=== PATIENT | female | born 1970 | race Caucasian/White ===

== ENCOUNTER 2017-03-11 19:17 | Emergency (ER) | payer OTHER, SELFPAY ==
[2017-03-11 19:17] VITALS: BP 149/98; PULSE 85; O2SAT 98
[2017-03-11 19:20] VITALS: BP 149/98; PULSE 87; RESP 18; TEMP 36.9; O2SAT 100; BMI 32.0
[2017-03-11 19:51] LABS: Basophils % 0.2 % (0.1-2.0); Eosinophils # 0.1 K/mm3 (0.0-0.4); Eosinophils % 1.3 % (0.1-12.0); Hematocrit 36.9 % (37.0-47.0); Hemoglobin 11.5 g/dL (12.2-16.2); Lymphocytes # 2.8 K/mm3 (0.7-4.5); Lymphocytes % 32.2 K/mm3 (10-50); Mean Corpuscular HGB Conc 31.2 g/dL (31.8-35.4); Mean Corpuscular Hemoglobin 28.5 pg (27.0-31.2); Mean Corpuscular Volume 91.4 fl (81-99); Mean Platelet Volume 6.8 fl (7.4-10.4); Monocytes # 0.4 K/mm3 (0.1-1.0); Monocytes % 4.9 % (1.7-9.3); Neutrophils # 5.2 K/mm3 (1.8-7.8); Neutrophils % 61.3 % (37.0-80.0); Platelet Count 236 K/mm3 (142-424); Red Blood Count 4.04 M/mm3 (4.20-5.40); Red Cell Distribution Width 16.3 % (11.5-17.5); White Blood Count 8.5 K/mm3 (4.8-10.8)
--- NOTE | 2017-03-11 20:18 | HMH.EDUROGF ---
ED Disposition Clinical Impression: Dysmenorrhea Disposition: Home, Self-Care Condition on Discharge: Good Instructions: DI for Vaginal Bleeding Additional Instructions: fluids and seedr yaa for follow up Referrals: Rony Pimentel MD [Primary Care Provider] - - Critical Care Critical Care Time: No Attestation: On 03/11/17, the high probability of a clinically significant, sudden or life threatening deterioration of the following system(s) required my full and direct attention, intervention and personal management. The time I documented below is in addition to time spent performing reported procedures but includes the following listed in this critical care notation. Medical Decision Making Vital Signs: 03/11/17 19:17 03/11/17 19:20 Temperature 98.5 F Temperature Source Oral Pulse Rate [Right Radial] 85 87 Respiratory Rate 18 Blood Pressure [Right Arm] 149/98 149/98 Blood Pressure Mean [Right Arm] 115 115 Blood Pressure Source [Right Arm] Automatic Cuff Blood Pressure Position [Right Arm] Sitting 02 Sat by Pulse Oximetry 98 100 Oxygen Delivery Method Room Air - Lab Data Lab results reviewed: Yes: I reviewed the patient's lab results. Lab Results 03/11/17 19:35: WBC 8.5, RBC 4.04 L, Hgb 11.5 L, Hct 36.9 L, MCV 91.4, MCH 28.5, MCHC 31.2 L, RDW 16.3, Plt Count 236, MPV 6.8 L, Neut % (Auto) 61.3, Lymph % (Auto) 32.2, [place] % (Auto) 4.9, Eos % (Auto) 1.3, Baso % (Auto) 0.2, Neut # (Auto) 5.2, Lymph # (Auto) 2.8, [place] # (Auto) 0.4, Eos # (Auto) 0.1, Baso # (Auto) 0.0 03/11/17 19:35: Sodium 142, Potassium 3.8, Chloride 107, Carbon Dioxide 27, Anion Gap 11.8, BUN 11, Creatinine 0.71, Estimated Creat Clear 119, Estimated GFR 89, Est GFR ( Amer) 108, Glucose 128 H, Calcium 8.7, Total Bilirubin 0.2, AST 22, ALT 30, Alkaline Phosphatase 101, Total Protein 7.4, Albumin 3.4, Globulin 4.0 H, Albumin/Globulin Ratio 0.9 L Result diagrams: 03/11/17 19:35 03/11/17 19:35 Orders (Tests/Meds): ED MEDICATIONS Generic Name Dose Route Start Last Admin Trade Name Park PRN Reason Stop Dose Admin Sodium Chloride 1,000 mls @ 999 mls/hr 03/11/17 20:45 03/11/17 20:33 Sod Chloride 0.9% 1000ml Bag IV 03/11/17 21:45 999 mls/hr .Q1H1M ABIDA Administration - Physician Consults Physician Consulted: yaa Reason -: Pt condition - [place] Inquiry Pt receiving controlled substance: No Female Urogenital HPI - General Chief complaint: Urogenital-Female Stated complaint: Heavy Bleeding for 2 Weeks Time Seen by Provider: 03/11/17 20:19 Mode of Arrival: Ambulatory Source of Information: Patient, Medical Record Limitations: No Limitations Description of Symptoms (Recalled from ER Triage Doc. by RN): Pt reports heavy mestration x 2 weeks. Reports she spoke with Dr. Hoffmann who told her to come to ed. - History of Present Illness HPI Narrative: felt light headed and crampy pain with abn vag bleeding MD Complaint: vaginal bleeding Onset (ago): week(s) Radiation: suprapubic Severity: moderate Quality: cramping : no - Related Data Home Medications Medication Instructions Recorded Confirmed aspirin 81 mg tablet,delayed 81 mg PO QDAY 03/09/17 03/11/17 release atorvastatin 80 mg tablet 80 mg PO QDAY 03/09/17 03/11/17 ferrous sulfate 325 mg (65 mg 325 mg PO BID tab 03/09/17 03/11/17 iron) tablet isosorbide mononitrate ER 30 mg 30 mg PO QAM 03/09/17 03/11/17 tablet,extended release 24 hr lisinopril 20 mg tablet 20 mg PO QDAY 03/09/17 03/11/17 metformin 500 mg tablet 500 mg PO BID 03/09/17 03/11/17 metoprolol succinate ER 25 mg 25 mg PO QDAY tab 03/09/17 03/11/17 tablet,extended release 24 hr ticagrelor 90 mg tablet 60 mg PO BID 03/09/17 03/11/17 Allergies Allergy/AdvReac Type Severity Reaction Status Date / Time Penicillins [PENICILLINS] Allergy Mild Verified 03/11/17 20:19 [facility] History I have reviewed the patient's past medical history: Yes Medical
--- NOTE | 2017-03-11 20:22 | ED_ITS ---
ED Disposition Clinical Impression: Dysmenorrhea Disposition: Home, Self-Care Condition on Discharge: Good Instructions: DI for Vaginal Bleeding Additional Instructions: fluids and seedr yaa for follow up Referrals: Rony Pimentel MD [Primary Care Provider] - - Critical Care Critical Care Time: No Attestation: On 03/11/17, the high probability of a clinically significant, sudden or life threatening deterioration of the following system(s) required my full and direct attention, intervention and personal management. The time I documented below is in addition to time spent performing reported procedures but includes the following listed in this critical care notation. Medical Decision Making Vital Signs: 03/11/17 19:17 03/11/17 19:20 Temperature 98.5 F Temperature Source Oral Pulse Rate [Right Radial] 85 87 Respiratory Rate 18 Blood Pressure [Right Arm] 149/98 149/98 Blood Pressure Mean [Right Arm] 115 115 Blood Pressure Source [Right Arm] Automatic Cuff Blood Pressure Position [Right Arm] Sitting 02 Sat by Pulse Oximetry 98 100 Oxygen Delivery Method Room Air - Lab Data Lab results reviewed: Yes: I reviewed the patient's lab results. Lab Results 03/11/17 19:35: WBC 8.5, RBC 4.04 L, Hgb 11.5 L, Hct 36.9 L, MCV 91.4, MCH 28.5 , MCHC 31.2 L, RDW 16.3, Plt Count 236, MPV 6.8 L, Neut % (Auto) 61.3, Lymph % ( Auto) 32.2, [place] % (Auto) 4.9, Eos % (Auto) 1.3, Baso % (Auto) 0.2, Neut # (Auto ) 5.2, Lymph # (Auto) 2.8, [place] # (Auto) 0.4, Eos # (Auto) 0.1, Baso # (Auto) 0.0 03/11/17 19:35: Sodium 142, Potassium 3.8, Chloride 107, Carbon Dioxide 27, Anion Gap 11.8, BUN 11, Creatinine 0.71, Estimated Creat Clear 119, Estimated GFR 89, Est GFR ( Amer) 108, Glucose 128 H, Calcium 8.7, Total Bilirubin 0.2, AST 22, ALT 30, Alkaline Phosphatase 101, Total Protein 7.4, Albumin 3.4, Globulin 4.0 H, Albumin/Globulin Ratio 0.9 L Result diagrams: 03/11/17 19:35 03/11/17 19:35 Orders (Tests/Meds): ED MEDICATIONS Generic Name Dose Route Start Last Admin Trade Name Park PRN Reason Stop Dose Admin Sodium Chloride 1,000 mls @ 999 mls/hr 03/11/17 20:45 03/11/17 20:33 Sod Chloride 0.9% 1000ml Bag IV 03/11/17 21:45 999 mls/hr .Q1H1M ABIDA Administration - Physician Consults Physician Consulted: yaa Reason -: Pt condition - [place] Inquiry Pt receiving controlled substance: No Female Urogenital HPI - General Chief complaint: Urogenital-Female Stated complaint: Heavy Bleeding for 2 Weeks Time Seen by Provider: 03/11/17 20:19 Mode of Arrival: Ambulatory Source of Information: Patient, Medical Record Limitations: No Limitations Description of Symptoms (Recalled from ER Triage Doc. by RN): Pt reports heavy mestration x 2 weeks. Reports she spoke with Dr. Hoffmann who told her to come to ed. - History of Present Illness HPI Narrative: felt light headed and crampy pain with abn vag bleeding MD Complaint: vaginal bleeding Onset (ago): week(s) Radiation: suprapubic Severity: moderate Quality: cramping : no - Related Data Home Medications Medication Instructions Recorded Confirmed aspirin 81 mg tablet,delayed 81 mg PO QDAY 03/09/17 03/11/17 release atorvastatin 80 mg tablet 80 mg PO QDAY 03/09/17 03/11/17 ferrous sulfate 325 mg (65 mg 325 mg PO BID tab
[2017-03-11 20:25] LABS: Alanine Aminotransferase 30 U/L (12-78); Albumin Level 3.4 gm/dL (3.4-5.0); Albumin/Globulin Ratio 0.9 (1.1-1.8); Alkaline Phosphatase 101 U/L (46-116); Anion Gap 11.8 mEq/L (5-15); Aspartate Amino Transferase 22 U/L (15-37); Bilirubin,Total 0.2 mg/dL (0.2-1.0); Blood Urea Nitrogen 11 mg/dL (7-18); Calcium 8.7 mg/dL (8.5-10.1); Carbon Dioxide 27 mmol/L (21.0-32.0); Chloride 107 mmol/L (98-107); Creatinine Clearance Estimated 119 mL/min (0-300); Creatinine,Serum 0.71 mg/dL (0.55-1.02); Estimated Glomerular Filt Rate 89 ml/min (>60); GFR (African American) 108 ML/MIN (>60); Glucose 128 mg/dL (74-106); Potassium 3.8 mmoL/L (3.5-5.1); Sodium 142 mmol/L (136-145); Total Protein,Serum 7.4 gm/dL (6.4-8.2)
[2017-03-11 20:40] VITALS: BP 140/87; PULSE 77; RESP 14; O2SAT 98
[2017-03-11 20:44] VITALS: BP 152/89; PULSE 75; RESP 14; O2SAT 98
[2017-03-11 20:48] VITALS: BP 150/92; PULSE 84; RESP 14; O2SAT 100
--- NOTE | 2017-03-11 20:53 | PC.NURSE ---
DR. GARY ON PHONE WITH DR. DANIELS
== END 2017-03-11 21:05 | disposition home or self-care (01) ==
PROVIDERS: Emergency Provider Emergency Medicine; PCP Emergency Medicine
DX: N94.6 Dysmenorrhea, unspecified (principal); R94.31 Abnormal electrocardiogram [ECG] [EKG]; E11.9 Type 2 diabetes mellitus without complications; J45.909 Unspecified asthma, uncomplicated; J44.9 Chronic obstructive pulmonary disease, unspecified; I10 Essential (primary) hypertension; K21.9 Gastro-esophageal reflux disease without esophagitis; E78.5 Hyperlipidemia, unspecified; D64.9 Anemia, unspecified; F17.210 Nicotine dependence, cigarettes, uncomplicated; I25.10 Atherosclerotic heart disease of native coronary artery without angina pectoris; Z95.5 Presence of coronary angioplasty implant and graft
CPT/HCPCS: 80053; 85025; 96365; 99282; 99283

== ENCOUNTER → 2017-03-13 10:25 | Outpatient (CLI) | payer OTHER, SELFPAY ==
--- NOTE | 2017-03-13 10:29 | US_ITS ---
US transvaginal Ordering Physician: Toby Hoffmann MD Patient Age: 46 years: Female HISTORY: ITS.REASON: Heavy Bleeding Pelvic Pain Cramping. Prolonged menses and 16 day last cycle TECHNIQUE: Transvaginal pelvic ultrasound COMPARISON :CT abdomen pelvis July 2013 FINDINGS Patient was noted to be currently actively bleeding. Uterus is enlarged with thickened endometrial stripe measures 1.25 cm..There is fluid pocket within the upper portion endometrium cavity conceivably could reflect a blood collection. This fluid pocket at the superior endometrium, measures 7.5 mm AP x 2.6 cm transverse.. The endometrial cavity far superiorly here measures 1.1 x 1.4 cm maximum AP dimension. Inferior this we see generous area of hyperechoic soft tissue density within the thickened mid endometrial cavity.. Cannot exclude endometrial polyp here at mid body of uterus contributing to this soft tissue density filling endometrial cavity here..... The endometrial cavity measuring up to 10 mm at midportion with this hypoechoic material fills the endometrium Uterus measures: nearly 9.5 cm cmlength X 5.25 x 5.8 cm wide. Ovaries appear within normal limits with minimal fluid at cul-de-sac bilateral Numerous follicles are seen about the margin both ovary Right ovary 2.8 x 1.8 x 2.7 cm. . LEFT ovary 3.1 x 2.1 x 2.8 cm. Largest follicle the left measuring 7.5 IMPRESSION: 1. Uterus relatively enlarged measuring nearly 9.5 cm in length.. 2. Thickened endometrial stripe. : ... Focal Fluid collection noted superiorly at endometrial cavity-possibly reflection of the patient's current, active bleeding. .... Otherwise hyperechoic soft tissue material fills & mildly dilates endometrial cavity. It measures at least 1 cm at this level & up to 1.4 cm AP superiorly at where the fluid collection encountered. ... 3. Ovaries appear normal in size with normal color Doppler flow. Normal Follicles bilaterally most evident left ovary. 4. Mild amount of fluid the cul-de-sac.
== END ==
PROVIDERS: PCP Emergency Medicine; Visit Provider Nurse Practitioner Obstetrics & Gynecology
DX: N92.0 Excessive and frequent menstruation with regular cycle (principal); R10.9 Unspecified abdominal pain
CPT/HCPCS: 76830

== ENCOUNTER → 2017-04-06 06:42 | Outpatient (CLI) | payer OTHER, SELFPAY ==
--- NOTE | 2017-04-06 06:45 | NM_ITS ---
SPECT MYOCARDIAL PERFUSION SCAN, REST AND STRESS: EXERCISE STRESS: [facility] REVIEW QGS EF AND WALL MOTION EVALUATION: QPS - PERFUSION EVALUATION: HISTORY: CAD PROCEDURE: Rest imaging performed after administration of10.13 millicuries Tc MIBI. Dose administered at7:00 a.m., with imaging thereafter. Stress imaging was then performed following6 minutes of exercise stress. The patient achieved a heart [id number] with projected heart rate of150 . Resting BP181/93 with stress 190/90. At maximum exercise stress,31.5 millicuries Tc MIBI administered at8:50 a.m. with [id number] minutes thereafter. EKG revealed 1 to [address] segment depression. EKG portion of this test was abnormal FINDINGS: Perfusion Evaluation: The single slice spect images as well as the [facility] bull's-eye data summary were reviewed. Wall Motion and Ejection Fraction Evaluation: Gated SPECT review and analysis used to evaluate these features. There is a 32 % SPECT images reveal severely decreased activity throughout the anterior wall apex and a portion of the inferoseptal wall. Rest images reveal no significant change gated images calculated ejection fraction of 32% with anterior apical hypokinesis. IMPRESSION: High risk abnormal stress test with previous transmural myocardial infarction involving the anterior apical septal wall and portion of the inferior apical wall without reversible ischemia. Severely reduced ejection fraction with large regional wall motion abnormality
--- NOTE | 2017-04-06 07:27 | HMH.ITSHM ---
METFORMIN BRILINTA METOPROLOL LISINOPRIL IRON PILL HORMONE PILL ATORVASTATIN ISOSORBIDE ASA
== END ==
PROVIDERS: PCP Emergency Medicine; Visit Provider Internal Medicine
DX: E78.4 Other hyperlipidemia (principal); I25.10 Atherosclerotic heart disease of native coronary artery without angina pectoris; E11.9 Type 2 diabetes mellitus without complications; R94.31 Abnormal electrocardiogram [ECG] [EKG]; F17.200 Nicotine dependence, unspecified, uncomplicated; Z95.5 Presence of coronary angioplasty implant and graft; R10.2 Pelvic and perineal pain; N94.6 Dysmenorrhea, unspecified
CPT/HCPCS: 78452; 93017; A9502

== ENCOUNTER 2017-04-20 07:37 | Day surgery (SDC) | payer OTHER, SELFPAY ==
[2017-04-20] VITALS (14 sets, daily range): BP systolic 120–176; BP diastolic 74–97; PULSE 57–73; RESP 12–20; TEMP 36.6; O2SAT 92–100; BMI 29.0
--- NOTE | 2017-04-20 | IR_ITS ---
CARDIAC CATHETERIZATION DATE OF CATHETERIZATION:04/20/2017 9:38 AM PROCEDURES: 1. Left heart catheterization 2. Left ventriculogram 3. Selective coronary angiogram INDICATION FOR TEST: 1. Systolic congestive heart failure ejection fraction 32% 2. High risk abnormal Myoview 3. History of ischemic cardiomyopathy 4. Coronary artery disease Informed consent was obtained prior to the procedure. COMPLICATIONS: None ESTIMATED BLOOD LOSS: Less than 10 ml. TECHNIQUE: One percent lidocaine was used to anesthetize the right groin. The right femoral artery was accessed via the Seldinger technique. A 4-Polish sheath was placed in the right femoral artery. The JL-4 and JR-4 catheter was also used to perform left heart catheterization left ventriculogram and selective coronary angiogram. At the end of the procedure the patient was transferred to the post-op holding area in stable condition for arterial sheath removal. ANGIOGRAPHIC RESULTS: 1. The left main artery normal 2. The left anterior descending artery has stents in the very proximal segment which extend throughout the mid segment. Proximally the stents are widely patent with mild in-stent restenosis. In the distal aspect of the mid LAD stent there is concentric 70-80% stenosis. The first diagonal artery has a filling defect in the ostial segment with persistent NANDO-3 flow down the vessel 3. The circumflex artery is nondominant and gives rise to a large ramus intermedius with ostial 20-30% stenoses while the true circumflex artery which runs in the AV groove has an ostial 80% stenosis 4. The right coronary artery is a large dominant vessel and has an ostial 20% stenosis proximal 20% stenosis mid vessel 30-40% concentric stenosis with distal 10% stenoses. The posterior descending artery has an ostial 60-70% stenosis 5. The RAYMOND ventriculogram reveals severely hypokinetic anterior apical wall with ejection fraction of 30%. The apex is akinetic 6. The left ventricular end-diastolic pressure 15 mmHg IMPRESSION: 1. Coronary artery disease as described above 2. Ischemic cardiomyopathy 3. Large regional wall motion abnormality with no reversible ischemia on stress testing implying anterior wall PLAN: 1. Standard therapy for systolic heart failure 2. Patient will be scheduled for an AICD later this week for her ischemic cardiomyopathy and class II to III congestive heart failure symptoms 3. Aggressive risk factor modification within LDL less than 55 4. Cardiac rehabilitation 5. Avoidance of tobacco products
[2017-04-20 08:21] LABS: Basophils % 0.3 % (0.1-2.0); Eosinophils # 0.1 K/mm3 (0.0-0.4); Eosinophils % 1.7 % (0.1-12.0); Hematocrit 43.1 % (37.0-47.0); Hemoglobin 13.5 g/dL (12.2-16.2); Lymphocytes # 1.5 K/mm3 (0.7-4.5); Lymphocytes % 21.7 K/mm3 (10-50); Mean Corpuscular HGB Conc 31.2 g/dL (31.8-35.4); Mean Corpuscular Hemoglobin 29.2 pg (27.0-31.2); Mean Corpuscular Volume 93.5 fl (81-99); Mean Platelet Volume 7.2 fl (7.4-10.4); Monocytes # 0.4 K/mm3 (0.1-1.0); Monocytes % 5.7 % (1.7-9.3); Neutrophils # 4.9 K/mm3 (1.8-7.8); Neutrophils % 70.6 % (37.0-80.0); Platelet Count 224 K/mm3 (142-424); Red Blood Count 4.61 M/mm3 (4.20-5.40); Red Cell Distribution Width 14.4 % (11.5-17.5); White Blood Count 6.9 K/mm3 (4.8-10.8)
[2017-04-20 08:28] LABS: Anion Gap 12.2 mEq/L (5-15); Blood Urea Nitrogen 10 mg/dL (7-18); Carbon Dioxide 24 mmol/L (21.0-32.0); Chloride 106 mmol/L (98-107); Creatinine Clearance Estimated 122 mL/min (0-300); Creatinine,Serum 0.63 mg/dL (0.55-1.02); Estimated Glomerular Filt Rate 103 ml/min (>60); GFR (African American) 124 ML/MIN (>60); Glucose 91 mg/dL (74-106); Sodium 138 mmol/L (136-145)
[2017-04-20 08:29] LABS: Potassium 4.2 mmoL/L (3.5-5.1)
== END 2017-04-20 13:44 | disposition home or self-care (01) ==
LOC: CATHLAB 07:39
PROVIDERS: PCP Emergency Medicine; Visit Provider Internal Medicine
DX: I50.21 Acute systolic (congestive) heart failure (principal); I25.5 Ischemic cardiomyopathy; I25.119 Atherosclerotic heart disease of native coronary artery with unspecified angina pectoris; Z95.5 Presence of coronary angioplasty implant and graft; Z79.899 Other long term (current) drug therapy; E11.9 Type 2 diabetes mellitus without complications; J44.9 Chronic obstructive pulmonary disease, unspecified; I11.0 Hypertensive heart disease with heart failure; Z72.0 Tobacco use
CPT/HCPCS: 80048; 85025; 93458; 99152; C1725; C1769; J1644; Q9967

== ENCOUNTER → 2017-04-22 09:58 | Outpatient (CLI) | payer OTHER, SELFPAY ==
--- NOTE | 2017-04-22 10:00 | CA_ITS ---
PROCEDURE: 2-D M-mode and color Doppler study INDICATIONS FOR THE TEST: Chest pain COPD+ Heart Murmur Tobacco Smoking+ Palpitations+ Fatigue Syncope Edema Hypertension+Diabetes Mellitus+ Rheumatic Fever SOB+JOYCE+Obesity Hyperlipidemia+ Family History HD Additional History CAD, stents, Angina, cath 04/20/17 (30% ef), getting AICD later this week PATIENT INFORMATION HEIGHT: 60 WEIGHT: 149 GENDER: Female B/P: 160/68 2-D/M-MODE INTERPRETATION: 2-D MEASUREMENTS OBSERVED VALUES IN CMS Right Ventricular Dimension (RVDd) 1.8 Interventricular Septum (Thickness)(IVsd) 1.0 Left Ventricular Internal Dimensions(LVIDd) 5.8 Left Ventricular Posterior Wall (Thickness)(LVPWd) 1.1 Aortic Root 2.9 Aortic Cusp Separation 2.2 Left Atrial Dimensions (LAD) 3.5 2D 1. Left atrium is mildly enlarged, left ventricle is mildly dilated, there is severely reduced left ventricular systolic function, visually estimated ejection fraction of 20-25%, there is marked hypo to akinesis involving the mid to distal septum, anterior, anteroapical, apical and anterolateral wall. 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 2. The right atrium and right ventricle are normal size and contractility. 3. The aortic valve is minimally thickened and fibrosed. 4. The mitral and tricuspid valve leaflets are minimally thickened. 5. The pulmonic valve is poorly visualized. 6. No significant pericardial effusion noted. DOPPLER INTERROGATION: Doppler interrogation of the aortic, mitral and tricuspid valvular presence of mild to moderate mitral and mild tricuspid regurgitation, tricuspid regurgitant jet velocity insufficient for calculation of the right ventricular systolic pressure, grade 1 diastolic dysfunction seen without tissue Doppler evidence of raised left atrial pressure. CONCLUSION: 1. Mildly enlarged left atrium, mildly dilated left ventricle, severely reduced left ventricular systolic function, visually estimated ejection fraction of 20-25% with multiple segmental wall motion abnormalities as described above. Grade 1 diastolic dysfunction seen without tissue Doppler evidence of raised left atrial pressure. 2. Mild to moderate mitral and mild tricuspid regurgitation 3. No significant pericardial effusion noted.
== END ==
PROVIDERS: PCP Emergency Medicine; Visit Provider Internal Medicine
DX: R94.30 Abnormal result of cardiovascular function study, unspecified (principal); I25.10 Atherosclerotic heart disease of native coronary artery without angina pectoris; Z95.5 Presence of coronary angioplasty implant and graft; Z01.818 Encounter for other preprocedural examination; I51.9 Heart disease, unspecified; J44.9 Chronic obstructive pulmonary disease, unspecified; R06.00 Dyspnea, unspecified; F17.200 Nicotine dependence, unspecified, uncomplicated
CPT/HCPCS: 93306

== ENCOUNTER → 2017-10-29 08:04 | Outpatient (CLI) | payer MEDICAID, SELFPAY ==
[2017-10-29 15:28] LABS: Alanine Aminotransferase 31 U/L (12-78); Albumin Level 3.6 gm/dL (3.4-5.0); Alkaline Phosphatase 91 U/L (46-116); Aspartate Amino Transferase 19 U/L (15-37); Bilirubin,Direct 0.1 mg/dL (0.0-0.2); Bilirubin,Indirect 0.5 mg/dL (0.0-0.9); Bilirubin,Total 0.6 mg/dL (0.2-1.0); Cholesterol 176 mg/dL (140-200); HDL Cholesterol 35 mg/dL (29-89); LDL Cholesterol 115 mg/dL (0-130); Total Protein,Serum 7.3 gm/dL (6.4-8.2); Triglycerides 129 mg/dL (30-200); VLDL Cholesterol 26 mg/dL (0-40)
[2017-10-29 17:49] LABS: Hemoglobin A1C 5.5 % (0.0-7.0)
== END ==
PROVIDERS: PCP Nurse Practitioner Family; Visit Provider Internal Medicine Cardiovascular Disease
DX: I42.9 Cardiomyopathy, unspecified (principal); I25.10 Atherosclerotic heart disease of native coronary artery without angina pectoris; E11.65 Type 2 diabetes mellitus with hyperglycemia
CPT/HCPCS: 36415; 80061; 80076; 83036

== ENCOUNTER → 2017-11-13 09:48 | Outpatient (CLI) | payer MEDICAID, SELFPAY ==
--- NOTE | 2017-11-13 09:49 | CA_ITS ---
PROCEDURE: 2-D M-mode and color Doppler study INDICATIONS FOR THE TEST: Chest pain COPDX Heart Murmur Tobacco SmokingX Palpitations Fatigue Syncope Edema Hypertension Diabetes Mellitus Rheumatic Fever SOBXDOE Obesity Hyperlipidemia Family History HD Additional History PACER,CHF,CAD,BRIDGET PATIENT INFORMATION HEIGHT: 58 WEIGHT:151 GENDER: Female B/P:141/79 2-D/M-MODE INTERPRETATION: 2-D MEASUREMENTS OBSERVED VALUES IN CMS Right Ventricular Dimension (RVDd) 2.6 Interventricular Septum (Thickness)(IVsd) .7 Left Ventricular Internal Dimensions(LVIDd) 5.9 Left Ventricular Posterior Wall (Thickness)(LVPWd) .7 Aortic Root 3.3 Aortic Cusp Separation 2.0 Left Atrial Dimensions (LAD) 3.5 2D 1. Left atrium is mildly enlarged, left ventricle is mildly dilated, there is no concentric left ventricular hypertrophy, visually estimated ejection fraction approximately 40%, there is marked hypokinesis involving the mid to distal septum, anteroapical and apical wall. 2. The right atrium and right ventricle are normal size and contractility, there is a pacemaker lead seen in the right atrium and right ventricle. 3. The aortic valve is minimally thickened and calcified. 4. The mitral and tricuspid valvular grossly normal. 5. The pulmonic valve is poorly visualized. 6. No significant pericardial effusion noted. DOPPLER INTERROGATION: Doppler interrogation of the aortic, mitral and tricuspid valve reveals presence of mild mitral and tricuspid regurgitation, tricuspid regurgitation jet velocity is insufficient for calculation of the right ventricular systolic pressure, grade 1 diastolic dysfunction seen with tissue Doppler evidence of raised left atrial pressure. CONCLUSION: 1. Mildly enlarged left atrium, mildly dilated left ventricle, visually estimated ejection fraction proximally 40% with segmental wall motion abnormality described above, grade 1 diastolic dysfunction seen with tissue Doppler evidence of raised left atrial pressure. 2. Mild mitral and tricuspid regurgitation 3. No significant pericardial effusion noted.
== END ==
PROVIDERS: PCP Nurse Practitioner Family; Visit Provider Internal Medicine
DX: R06.09 Other forms of dyspnea (principal); I25.10 Atherosclerotic heart disease of native coronary artery without angina pectoris; I50.20 Unspecified systolic (congestive) heart failure; E11.9 Type 2 diabetes mellitus without complications; E78.5 Hyperlipidemia, unspecified; F17.200 Nicotine dependence, unspecified, uncomplicated; I51.9 Heart disease, unspecified; R53.83 Other fatigue; Z95.5 Presence of coronary angioplasty implant and graft; Z95.810 Presence of automatic (implantable) cardiac defibrillator
CPT/HCPCS: 93306

== ENCOUNTER → 2017-11-25 12:51 | Outpatient (CLI) | payer MEDICAID, SELFPAY | PROVIDERS: PCP Nurse Practitioner Family; Visit Provider Urology | DX: G47.33 Obstructive sleep apnea (adult) (pediatric) (principal); E11.9 Type 2 diabetes mellitus without complications; E78.5 Hyperlipidemia, unspecified; F17.200 Nicotine dependence, unspecified, uncomplicated; I25.10 Atherosclerotic heart disease of native coronary artery without angina pectoris; I50.20 Unspecified systolic (congestive) heart failure; I51.9 Heart disease, unspecified; R06.09 Other forms of dyspnea; R53.83 Other fatigue; Z95.5 Presence of coronary angioplasty implant and graft; Z95.810 Presence of automatic (implantable) cardiac defibrillator | CPT/HCPCS: 95806 ==

== ENCOUNTER → 2018-04-01 07:26 | Outpatient (CLI) | payer MEDICAID, SELFPAY ==
--- NOTE | 2018-04-01 07:30 | AS_ITS ---
Renal Arterial Duplex Indications: 405.91 Unspecified renovascular hypertension. IMPRESSIONS 1. Greater than 60% stenosis involving the right renal artery 2. The left renal artery appears normal. 3. Gallstone seen in gallbladder. History: Risk factors: Current tobacco use. Hypertension. Diabetes mellitus. Coronary artery disease. Complete renal arterial duplex. Duplex scan and Doppler flow study including spectral analysis, color and sheldon scale imaging. Height: Height: 149.9cm. Height: 59in. Weight: Weight: 68kg. Weight: 149.7lb. Body mass index: BMI: 30.3kg/m^2. Body surface area: BSA: 1.71m^2. Location: Vascular laboratory. Patient status: Outpatient. Tables: Arterial flow: + +--------+--------+ Location V sys V ed + +--------+--------+ Right renal - proximal 136cm/s 56cm/s + +--------+--------+ Right renal - mid 196cm/s 66cm/s + +--------+--------+ Right renal - distal 87.4cm/s 28.8cm/s + +--------+--------+ Left renal - proximal 114cm/s 37.2cm/s + +--------+--------+ Left renal - mid 88.1cm/s 35.8cm/s + +--------+--------+ Left renal - distal 88.8cm/s 22.9cm/s + +--------+--------+ Right renal-origin 201cm/s 71.7cm/s + +--------+--------+ Left renal-origin 122cm/s 35.9cm/s + +--------+--------+ Renal anatomy: + +------+------+ Left Right + +------+------+ Long axis 10.4cm 10.3cm + +------+------+ Short axis 6.4cm 6.7cm + +------+------+ Cortical thickness 2cm 1.2cm + +------+------+ Velocity ratios: + +-----+ V sys + +-----+ Right renal/aortic 3.4 + +-----+ Left renal/aortic 2.1 + +-----+ (Report amended ) Electronically signed by: Pramod Cardozo [id number]
== END ==
PROVIDERS: PCP Nurse Practitioner Family; Visit Provider Physician Assistant
DX: I10 Essential (primary) hypertension (principal); I25.10 Atherosclerotic heart disease of native coronary artery without angina pectoris; R94.31 Abnormal electrocardiogram [ECG] [EKG]; E78.5 Hyperlipidemia, unspecified; I50.20 Unspecified systolic (congestive) heart failure; I51.9 Heart disease, unspecified; J44.9 Chronic obstructive pulmonary disease, unspecified; F17.200 Nicotine dependence, unspecified, uncomplicated; Z95.5 Presence of coronary angioplasty implant and graft; Z95.810 Presence of automatic (implantable) cardiac defibrillator
CPT/HCPCS: 93976

== ENCOUNTER → 2018-04-14 07:16 | Outpatient (CLI) | payer MEDICAID, SELFPAY ==
[2018-04-14 14:13] LABS: Anion Gap 13.1 mEq/L (5-15); Blood Urea Nitrogen 9 mg/dL (7-18); Calcium 8.9 mg/dL (8.5-10.1); Carbon Dioxide 26 mmol/L (21.0-32.0); Chloride 104 mmol/L (98-107); Creatinine,Serum 0.82 mg/dL (0.55-1.02); Estimated Glomerular Filt Rate 75 ml/min (>60); GFR (African American) 91 ML/MIN (>60); Glucose 88 mg/dL (74-106); Potassium 4.1 mmoL/L (3.5-5.1); Sodium 139 mmol/L (136-145)
== END ==
PROVIDERS: PCP Nurse Practitioner Family; Visit Provider Internal Medicine
DX: Z98.61 Coronary angioplasty status (principal)
CPT/HCPCS: 36415; 80048

== ENCOUNTER → 2018-08-05 14:03 | Outpatient (CLI) | payer MEDICAID, SELFPAY ==
[2018-08-05 15:00] VITALS: PULSE 84; PULSE 88
== END ==
PROVIDERS: PCP Internal Medicine Adolescent Medicine; Visit Provider Internal Medicine Adolescent Medicine
DX: R06.02 Shortness of breath (principal)
CPT/HCPCS: 94060; 94640; 94726; 94729

== ENCOUNTER → 2018-08-10 15:53 | Outpatient (CLI) | payer MEDICAID, SELFPAY ==
[2018-08-10 16:10] LABS: Basophils % 0.3 % (0.1-2.0); Eosinophils # 0.1 K/mm3 (0.0-0.4); Eosinophils % 0.9 % (0.1-12.0); Hematocrit 46.4 % (37.0-47.0); Hemoglobin 14.9 g/dL (12.2-16.2); Lymphocytes # 1.9 K/mm3 (0.7-4.5); Lymphocytes % 30.2 % (10-50); Mean Corpuscular Hemoglobin 30.3 pg (27.0-31.2); Mean Corpuscular Volume 94.5 fl (81-99); Mean Platelet Volume 6.7 fl (7.4-10.4); Monocytes # 0.4 K/mm3 (0.1-1.0); Monocytes % 5.6 % (1.7-9.3); Neutrophils % 63.1 % (37.0-80.0); Platelet Count 204 K/mm3 (142-424); Red Blood Count 4.91 M/mm3 (4.20-5.40); Red Cell Distribution Width 13.7 % (11.5-17.5); White Blood Count 6.4 K/mm3 (4.8-10.8)
[2018-08-10 17:12] LABS: Alanine Aminotransferase 26 U/L (12-78); Albumin Level 3.3 gm/dL (3.4-5.0); Alkaline Phosphatase 80 U/L (46-116); Anion Gap 13.8 mEq/L (5-15); Aspartate Amino Transferase 16 U/L (15-37); Bilirubin,Total 0.4 mg/dL (0.2-1.0); Blood Urea Nitrogen 9 mg/dL (7-18); Calcium 8.8 mg/dL (8.5-10.1); Carbon Dioxide 25 mmol/L (21.0-32.0); Chloride 103 mmol/L (98-107); Creatinine,Serum 0.85 mg/dL (0.55-1.02); Estimated Glomerular Filt Rate 72 ml/min (>60); GFR (African American) 88 ML/MIN (>60); Globulin 3.4 gm/dl (1.3-3.2); Glucose 94 mg/dL (74-106); Lipase 99 u/L (73-393); Potassium 3.8 mmoL/L (3.5-5.1); Sodium 138 mmol/L (136-145); Total Protein,Serum 6.7 gm/dL (6.4-8.2)
== END ==
PROVIDERS: Visit Provider Internal Medicine Adolescent Medicine
DX: R10.11 Right upper quadrant pain (principal)
CPT/HCPCS: 36415; 80053; 83690; 85025

== ENCOUNTER → 2018-08-16 07:56 | Outpatient (CLI) | payer MEDICAID, SELFPAY ==
--- NOTE | 2018-08-16 07:58 | US_ITS ---
US gallbladder HISTORY: ITS.REASON: RUQ PAIN ORDERING PHYSICIAN: Umair Richards MD PATIENT AGE: 47 years Comparison: None FINDINGS: PANCREAS: Unremarkable. No obvious mass or abnormal fluid collection. No ductal dilatation LIVER: No focal liver lesions demonstrated. Homogeneous echogenicity. No intrahepatic biliary ductal dilatation evident RIGHT KIDNEY: Unremarkable. Normal size and echogenicity. No hydronephrosis GALLBLADDER: There is a gallstone present. Common bile duct is normal at 5 mm. No gallbladder wall thickening, pericholecystic fluid, or bladder dilatation is evident. IMPRESSION: Cholelithiasis
== END ==
PROVIDERS: PCP Internal Medicine Adolescent Medicine; Visit Provider Internal Medicine Adolescent Medicine
DX: R10.11 Right upper quadrant pain (principal)
CPT/HCPCS: 76705

== ENCOUNTER → 2019-02-28 15:05 | Outpatient (CLI) | payer OTHER, SELFPAY ==
--- NOTE | 2019-02-28 15:06 | CA_ITS ---
APPROVED REPORT EXAM: Comprehensive 2D, Doppler, and color-flow Echocardiogram Computer Network And Systems Engineer: Adri Fisher RVT Ht: 5 ft 0 in Wt: 153lbs BSA: 1.67 BP: 126/72 mmHg Indications: Congestive Heart Failure, COPD, Shortness of Breath, Fatigue, Cardiomyopathy,Smoker,AICD,Stent, Home O2,HTN,HLD 2D Dimensions LVOT 1.93 cm (M/F) 1.5-2.5 M-Mode Dimensions RVDd 2.41 cm (0.9-2.6) LVDd 4.79 cm (3.5-5.7) LVDs 3.69 cm (3.5-5.7) IVSd 1.13 cm (0.6-1.1) PWd 1.02 cm (0.6-1.1) EF (Teich) 46.00% FS 23.00% EDV (Teich) 107.00 mL ESV (Teich) 57.80 mL LV Diastology E/A Ratio 0.66 Mitral Valve MV A Velocity 63.00 (40-130 cm/s) Left Ventricle Left atrium is mildly enlarged, left ventricle is normal size, mild concentric left ventricular hypertrophy, visually estimated ejection fraction 45%, there is marked hypokinesis involving the apex, basal septum and inferior basal wall. Grade 1 diastolic dysfunction seen without tissue Doppler evidence of raise left atrial pressure. Right Ventricle Right atrium and right ventricular normal size and contractility, there is an AICD lead seen in the right ventricle. Aortic Valve Aortic valve is thickened and calcified, leaflet continue to display mobility. Mitral Valve Mitral valve leaflets are minimally thickened, there is mild mitral regurgitation. Tricuspid Valve Tricuspid valve is grossly normal, there is mild tricuspid regurgitation. Pulmonic Valve Pulmonic valve is poorly visualized. Great Vessels Aortic root is normal size. Pericardium No significant pericardial effusion noted. Conclusion 1. Mildly enlarged left atrium, normal left ventricular size, mild concentric left ventricular hypertrophy, visually estimated ejection fraction 45% with segmental wall motion abnormality described above, grade 1 diastolic dysfunction seen without tissue Doppler evidence of raise left atrial pressure. 2. Mild mitral and tricuspid regurgitation. 3. No significant pericardial effusion noted. Electronically signed by : Devan Tolliver, 03/01/2019 07:07:12
== END ==
PROVIDERS: PCP Internal Medicine Adolescent Medicine; Visit Provider Urology
DX: I25.10 Atherosclerotic heart disease of native coronary artery without angina pectoris (principal); E78.5 Hyperlipidemia, unspecified; I51.9 Heart disease, unspecified; Z95.5 Presence of coronary angioplasty implant and graft; Z95.810 Presence of automatic (implantable) cardiac defibrillator
CPT/HCPCS: 93306

== ENCOUNTER → 2019-03-24 07:33 | Outpatient (CLI) | payer OTHER, SELFPAY ==
--- NOTE | 2019-03-24 07:33 | NM_ITS ---
APPROVED REPORT Exam: Nuclear Stress Test Indication: palpitations..fatigue Patient Location: Outpatient Stress Tech: Cara Jose [place] Tech:ARMANDO Goodman RT(R)(N) Ht: 4 ft 11 in Wt: 153 lbs Bra Size: implants HR: 72 bpm BP: 141/77 mmHg BSA: 1.65 m2 BMI: 30.8 History: palpitations..fatigue Procedure: Patient received a 0.4 mg of intravenous Lexiscan, resting heart rate 72 bpm, resting blood pressure 141/77 mmHg, with Lexiscan maximum heart rate achived was 98 bpm which is Less than 85 % of the maximum predicted heart rate and blood pressure was 129/70 mmHg. With Lexiscan, patient denied any complaint of chest pain. Electrocardiogram Resting electrocardiogram showed sinus rhythm, with Lexiscan there is additional millimeter ST segment depression noted from the baseline EKG. The EKG portion of the Lexiscan Myoview is nondiagnostic. Cardiac Stress and Resting SPECT Images: Cardiac Stress and Resting SPECT images were obtained using technetium 99m Myoview 32.9 mCi stress and 10.71 mCi at rest. Gated SPECT for analysis of segmental wall motion and calculation of the ejection fraction also done. Cardiac stress and resting SPECT images show severely reduced tracer activity in the fixed pattern involving the anterior, anterior apical, anteroseptal and apical wall consistent with area of myocardial scarring without significant sammy-infarct ischemia, computer derived ejection fraction is 45% with marked anterior, anterior apical, apex and anteroseptal wall hypokinesis. Right ventricle is normal size and contractility. Conclusion: 1. The EKG portion of the Lexiscan Myoview is nondiagnostic. 2. Scintigraphic evidence of extensive myocardial scarring involving the anterior, anterior apical, anteroseptal and apical wall. There is no significant sammy-infarct ischemia. Computer derived ejection fraction is 45% with segmental wall motion abnormality described above, right ventricle is normal size and contractility. 3. Abnormal Lexiscan Myoview study. Electronically signed by : Devan Tolliver, 03/24/2019 15:42:53
--- NOTE | 2019-03-24 09:46 | CA_ITS ---
APPROVED REPORT Exam: Pharmacologic Technologist: Cara Jose, Ht: 4 ft 11 in Wt: 143 lbs BSA: 1.60 m2 HR: 72 bpm BP: 141/77 mmHg Rhythm: NSR,Old septal and lateral ND's, STT abn, inferiorly and laterally Indications: Abn Echo Medical History Medical History: Htn,, Diabetes, Hyperlipidemia, Smoking Medications: Lisinopril,,,,, Aspirin,,,,, Metformin,,,,, Carvedilol,,,,, CloPIdogrel,,,,, Famotidine,,,,, DulOXETINE,,,,, Tiotropium [place],,,,, AtorvaASTATIN,,,,, MeDroxyprogesterone,,,,, Allergies: PCN Cardiac Risk Factors: FHX of CAD, HTN, Hyperlipidemia, FHX of CAD, Diabetes (non-insulin) Stress Test Details Test: LEXISCAN HR Resting HR: 75 bpm Max Heart Rate (APMHR): 174 bpm Max HR Achieved: 108 bpm Target HR (85% APMHR): 147 bpm % of APMHR: 62 Recovery HR: 97 bpm BP Resting BP: 141.0/77.0 mmHg Max BP: 137.0/76.0 mmHg Recovery BP: 123.0/77.0 mmHg ECG Clinical Exercise duration: 04:01 min Highest Stage Achieved: Stress ECG Conclusion Brief SOA, mild nausea and malaise, no CP / no arrhythmias or ectopy / exaggeration of baseline ST-T abn / unremarkable lexiscan stress / Myoview images reported seperately Electronically signed by : Devan Tolliver, 03/24/2019 15:40:01
--- NOTE | 2019-03-24 11:37 | HMH.ITSHM ---
Current Home Medications as stated by this patient Tati Jones or loss prevention representative. []aspirin isosorb medroxy clopidogrel lisinopril atorvastatin metformin famotidione carvedilol albuterol
== END ==
PROVIDERS: PCP Internal Medicine Adolescent Medicine; Visit Provider Urology
DX: R06.00 Dyspnea, unspecified (principal); R94.31 Abnormal electrocardiogram [ECG] [EKG]; J44.9 Chronic obstructive pulmonary disease, unspecified; R93.1 Abnormal findings on diagnostic imaging of heart and coronary circulation
CPT/HCPCS: 78452; 93017; A9502; J2785

== ENCOUNTER 2020-06-16 17:36 | Emergency (ER) | payer MEDICARE, SELFPAY ==
[2020-06-16 17:37] VITALS: BP 197/119; PULSE 84; RESP 16; TEMP 36.9; O2SAT 96; BMI 31.0
--- NOTE | 2020-06-16 17:55 | HMH.EDGENADL ---
ED Disposition Condition on Discharge: Good - Critical Care Critical Care Time: No <Yadiel Leon - Last Filed: 06/16/20 19:40> <Rony Pimentel - Last Filed: 06/16/20 21:24> Clinical Impression: Chronic anticoagulation, Pain of left thumb, Hypertensive urgency Fall Qualifiers: Encounter type: initial encounter Qualified Code(s): W19.XXXA - Unspecified fall, initial encounter Sprain of hand, thumb, left Qualifiers: Encounter type: initial encounter Sprain of finger site: unspecified site Qualified Code(s): S63.602A - Unspecified sprain of left thumb, initial encounter Disposition: Home, Self-Care Instructions: DI for Ligament Sprains Additional Instructions: see pcp for follow up this week Prescriptions: hydroCHLOROthiazide [HCTZ 25mg tab] 25 mg PO DAILY #30 tab Transmission Status: Pending to [id number] Referrals: Umair Richards MD [Primary Care Provider] - Attestation: On 06/16/20, the high probability of a clinically significant, sudden or life threatening deterioration of the following system(s) required my full and direct attention, intervention and personal management. The time I documented below is in addition to time spent performing reported procedures but includes the following listed in this critical care notation. Medical Decision Making - Medical Records Medical records reviewed: Yes: I reviewed the patient's medical records. - Tacho Inquiry Pt receiving controlled substance: No - ECG Data Tracing #1 ECG initial impression date: 06/16/20 ECG initial impression time: 18:05 <Yadiel Leon - Last Filed: 06/16/20 19:40> - Lab Data Result diagrams: 06/16/20 20:07 06/16/20 20:07 <Rony Pimentel - Last Filed: 06/16/20 21:24> Vital Signs: 06/16/20 17:37 06/16/20 19:55 06/16/20 21:13 Temperature 98.4 F Temperature Source Oral Pulse Rate [Radial] 84 Respiratory Rate 16 Blood Pressure 180/108 H 196/88 H Blood Pressure [Right Arm] 197/119 H Blood Pressure Mean [Right Arm] 145 Blood Pressure Source Manual Cuff/ Auscultation Blood Pressure Position Supine Blood Pressure Position [Right Arm] Sitting 02 Sat by Pulse Oximetry 96 Oxygen Delivery Method Room Air - Lab Data Lab Results 06/16/20 20:07: WBC 7.5, RBC 5.11, Hgb 15.8, Hct 47.7 H, MCV 93.4, MCH 30.9, MCHC 33.0, RDW 14.3, Plt Count 203, MPV 6.7 L, Neut % (Auto) 63.0, Lymph % (Auto) 29.7, Person % (Auto) 5.9, Eos % (Auto) 0.9, Baso % (Auto) 0.5, Neut # (Auto) 4.7, Lymph # (Auto) 2.2, Person # (Auto) 0.4, Eos # (Auto) 0.1, Baso # (Auto) 0.0 06/16/20 20:07: Sodium 135 L, Potassium 3.8, Chloride 103, Carbon Dioxide 30, Anion Gap 5.8, BUN 14, Creatinine 0.80, Estimated Creat Clear 99, Estimated GFR 77, Est GFR ( Amer) 93, Glucose 88, Calcium 9.2, Total Bilirubin 0.4, AST 27, ALT 24, Alkaline Phosphatase 94, Troponin I < 0.01, Total Protein 7.4, Albumin 4.1, Globulin 3.3 H, Albumin/Globulin Ratio 1.2 Orders (Tests/Meds): ED MEDICATIONS Discontinued Medications Generic Name Dose Route Start Last Admin Trade Name Freq PRN Reason Stop Dose Admin Labetalol HCl 20 mg 06/16/20 19:41 06/16/20 19:53 Labetalol 20mg/4ml Syringe IV 06/16/20 19:42 Not Given ONCE ONE Labetalol HCl 20 mg 06/16/20 19:53 06/16/20 19:55 Labetalol 5mg/Ml 20ml Mdv IV 06/16/20 19:54 20 mg ONCE ONE Administration ORDERS Category Date Time Status Troponin I Q3H Lab 06/16/20 23:00 Ordered Troponin I Q3H Lab 06/17/20 02:00 Ordered - ECG Data Tracing #1 78 bpm, normal sinus rhythm, no ST elevation or depression, normal intervals, no ectopy. (Yadiel Leon) Medical Decision Narrative: 49yo M evaluated for left thumb injury but more concern is based off the patient's history of anticoagulant use and her head strike yesterday. Patient is more than 24 hours out at this point. Patient also is found to have hypertensive urgency on evaluation. She is asymptomatic to it
--- NOTE | 2020-06-16 18:02 | XR_ITS ---
PROCEDURE INFORMATION: Exam: XR Left Hand Exam date and time: 06/16/2020 6:02 PM Age: 49 years old Clinical indication: Patient HX: Left hand pain , swelling noted TECHNIQUE: Imaging protocol: XR Left hand. Views: 3 or more views. COMPARISON: No relevant prior studies available. FINDINGS: Bones/joints: There is no evidence of acute fracture. There is no evidence of joint malalignment or dislocation. Soft tissues: Mild soft tissue swelling. IMPRESSION: 1. Mild soft tissue swelling. 2. No evidence of acute fracture. 3. No evidence of acute dislocation.
--- NOTE | 2020-06-16 19:41 | CT_ITS ---
PROCEDURE INFORMATION: Exam: CT Head Without Contrast Exam date and time: 06/16/2020 7:41 PM Age: 49 years old Clinical indication: Injury or trauma; Fall; Abrasion; Other: Chronic anticoag; Additional info: Fall, chronic anticoag TECHNIQUE: Imaging protocol: Computed tomography of the head without contrast. Radiation optimization: All CT scans at this facility use at least one of these dose optimization techniques: automated exposure control; mA and/or kV adjustment per patient size (includes targeted exams where dose is matched to clinical indication); or iterative reconstruction. COMPARISON: No relevant prior studies available. FINDINGS: Brain: Normal. No hemorrhage. Unremarkable white matter. No mass effect. Cerebral ventricles: No ventriculomegaly. Bones/joints: No acute fracture. Paranasal sinuses: Visualized sinuses are unremarkable. No fluid levels. Mastoid air cells: Visualized mastoid air cells are well aerated. Soft tissues: No acute changes IMPRESSION: No acute intracranial abnormality.
[2020-06-16 19:55] VITALS: BP 180/108
--- NOTE | 2020-06-16 19:58 | CT_ITS ---
PROCEDURE INFORMATION: Exam: CT Cervical Spine Without Contrast Exam date and time: 06/16/2020 7:58 PM Age: 49 years old Clinical indication: Injury or trauma; Fall; Sprain or strain, cervical ligaments TECHNIQUE: Imaging protocol: Computed tomography images of the cervical spine without contrast. Radiation optimization: All CT scans at this facility use at least one of these dose optimization techniques: automated exposure control; mA and/or kV adjustment per patient size (includes targeted exams where dose is matched to clinical indication); or iterative reconstruction. COMPARISON: No relevant prior studies available. FINDINGS: Bones/joints: There is a nonspecific reversal of the normal cervical lordosis. There is no evidence of acute fracture. The facet joints demonstrate mild degenerative hypertrophy and sclerosis. Discs/Spinal canal/Neural foramina: The cervical spine demonstrates mild degenerative changes at multiple levels. Disc space narrowing and bilateral neural foraminal narrowing noted C5-C6 and C6-C7. Lungs: Lung apices are normal. Soft tissues: There are no soft tissue masses or fluid collections. IMPRESSION: 1. The cervical spine demonstrates mild degenerative changes at multiple levels. 2. There is a nonspecific reversal of the normal cervical lordosis. 3. No evidence of acute fracture.
--- NOTE | 2020-06-16 19:59 | PC.NURSE ---
md decided after seeing patient he wanted patient to have an iv, labetalol and a head scan. questioned md what other orders he wanted and he said he would be turning over to dr monk and to order appropriately
[2020-06-16 20:15] LABS: Basophils % 0.5 % (0.1-2.0); Eosinophils # 0.1 K/mm3 (0.0-0.4); Eosinophils % 0.9 % (0.1-12.0); Hematocrit 47.7 % (37.0-47.0); Hemoglobin 15.8 g/dL (12.2-16.2); Lymphocytes # 2.2 K/mm3 (0.7-4.5); Lymphocytes % 29.7 % (10-50); Mean Corpuscular Hemoglobin 30.9 pg (27.0-31.2); Mean Corpuscular Volume 93.4 fl (81-99); Mean Platelet Volume 6.7 fl (7.4-10.4); Monocytes # 0.4 K/mm3 (0.1-1.0); Monocytes % 5.9 % (1.7-9.3); Neutrophils # 4.7 K/mm3 (1.8-7.8); Platelet Count 203 K/mm3 (142-424); Red Blood Count 5.11 M/mm3 (4.20-5.40); Red Cell Distribution Width 14.3 % (11.5-17.5); White Blood Count 7.5 K/mm3 (4.8-10.8)
[2020-06-16 20:24] LABS: Alanine Aminotransferase 24 U/L (12-78); Albumin Level 4.1 g/dl (3.5-5.0); Albumin/Globulin Ratio 1.2 (1.1-1.8); Alkaline Phosphatase 94 U/L (38-126); Anion Gap 5.8 mEq/L (5-15); Aspartate Amino Transferase 27 U/L (14-36); Bilirubin,Total 0.4 mg/dl (0.2-1.3); Blood Urea Nitrogen 14 mg/dl (7-17); Calcium 9.2 mg/dl (8.4-10.2); Carbon Dioxide 30 mmol/L (22.0-30.0); Chloride 103 mmol/L (98-107); Creatinine Clearance Estimated 99 mL/min (50-200); Estimated Glomerular Filt Rate 77 ml/min (>60); GFR (African American) 93 ML/MIN (>60); Globulin 3.3 g/dL (1.3-3.2); Glucose 88 mg/dl (74-100); Potassium 3.8 mmoL/L (3.5-5.1); Sodium 135 mmol/L (136-145); Total Protein,Serum 7.4 g/dl (6.3-8.2)
--- NOTE | 2020-06-16 20:32 | ECG_ITS ---
APPROVED REPORT Exam: Resting ECG HR:65 bpm ECG Measurements Heart Rate 65 AXES TX 154 P 69 QRSd 94 QRS -35 QT 442 T 125 QTc 459 Conclusion Normal sinus rhythm Possible Left atrial enlargement Left axis deviation Incomplete right bundle branch block Left ventricular hypertrophy Old septal and twave changes Abnormal ECG Electronically signed by : Gary Latham, 06/17/2020 20:27:13
[2020-06-16 20:37] LABS: Troponin I < 0.01 ng/ml (0.00-0.034)
[2020-06-16 21:13] VITALS: BP 196/88
[2020-06-16 21:25] VITALS: BP 188/90; PULSE 80; RESP 18; TEMP 36.7; O2SAT 98
== END 2020-06-16 21:28 | disposition home or self-care (01) ==
PROVIDERS: Emergency Medicine; Emergency Provider Family Medicine; PCP Internal Medicine Adolescent Medicine
DX: S63.602A Unspecified sprain of left thumb, initial encounter (principal); W01.0XXA Fall on same level from slipping, tripping and stumbling without subsequent striking against object, initial encounter; Y92.019 Unspecified place in single-family (private) house as the place of occurrence of the external cause; I16.0 Hypertensive urgency; E11.9 Type 2 diabetes mellitus without complications; K21.9 Gastro-esophageal reflux disease without esophagitis; J44.9 Chronic obstructive pulmonary disease, unspecified; E78.5 Hyperlipidemia, unspecified; I25.2 Old myocardial infarction; I25.10 Atherosclerotic heart disease of native coronary artery without angina pectoris; Z88.0 Allergy status to penicillin; F17.210 Nicotine dependence, cigarettes, uncomplicated
CPT/HCPCS: 70450; 72125; 73130; 80053; 84484; 85025; 93005; 96374; 99282

== ENCOUNTER → 2021-03-04 06:07 | Outpatient (CLI) | payer MEDICARE, OTHER, SELFPAY ==
--- NOTE | 2021-03-04 06:08 | CA_ITS ---
APPROVED REPORT Exam: Pharmacologic Technologist: Jessica Aleman, Ht: 5 ft 0 in Wt: 158 lbs BSA: 1.69 m2 HR: 60 bpm BP: 133/83 mmHg Rhythm: NSR, NON SPECIFIC T WAVE ABNORMALITIES INF LAT Medical History Medications: Lisinopril,,,,, Spiriva,,,,, Isosorbide,,,,, Asa,,,,, Metformin,,,,, Ferrous sulfate,,,,, Atorvastatin,,,,, HCTZ,,,,, Carvedilol,,,,, Albuterol,,,,, Plavix,,,,, DulOXETINE,,,,, Cardiac Risk Factors: Smoking Stress Test Details Test: LEXISCAN HR Resting HR: 64 bpm Max Heart Rate (APMHR): 172.441882 bpm Max HR Achieved: 85 bpm Target HR (85% APMHR): 146.667329 bpm % of APMHR: 49.42 Recovery HR: 78 bpm BP Resting BP: 133/83 mmHg Max BP: 181/100 mmHg Recovery BP: 172.0/90.0 mmHg ECG Resting ECG: NSR, NON SPECIFIC T WAVE ABNORMALITIES INF LAT Clinical Reason for Termination: Completed Protocol Exercise duration: 04:22 min Highest Stage Achieved: Exercise capacity: 1.0 METs Stress ECG Conclusion PT HAD NO CP. <1.[address] SEGMENT CHANGES. NON DIAGNOSTIC Test Summary REST 07:27 . . 64 . 133/ 83 . . Stage 1 01:00 . . 76 . . . . Stage 2 01:00 . . 80 . 166/ 93 . . Stage 3 01:00 . . 74 . 167/ 87 . . Stage 4 01:00 . . 72 . . . . Stage 4 01:22 . . 72 . 181/100 . Stop exercise at 04:22 RECOVERY 01:00 . . 70 . . . . RECOVERY 01:45 . . 69 . 172/ 90 . . Electronically signed by : Devan Tolliver MD 03/04/2021 12:40:09
--- NOTE | 2021-03-04 06:08 | NM_ITS ---
APPROVED REPORT Exam: Nuclear Stress Test Indication: CAD, CHF, HTn, DM, High cholesterol, Tobacco use, Family history, Chest pain, SOB, Pacemaker Patient Location: Outpatient Stress Tech: Jessica Aleman [place] Tech:Alethea Reyes, ARRT, RT (R)(N) Ht: 4 ft 11 in Wt: 158 lbs Bra Size: 38C HR: 64 bpm BP: 133/83 mmHg BSA: 1.67 m2 BMI: 31.9 History: CAD, CHF, HTn, DM, High cholesterol, Tobacco use, Family history, Chest pain, SOB, Pacemaker Procedure: Patient received a 0.4 mg of intravenous Lexiscan, resting heart rate 63 bpm, resting blood pressure 133/83 mmHg, with Lexiscan maximum heart rate achived was 85 bpm which is Less than 85 % of the maximum predicted heart rate and blood pressure was 181/100 mmHg. With Lexiscan, patient denied any complaint of chest pain. Electrocardiogram Resting electrocardiogram shows sinus rhythm nonspecific ST-T changes, with the Lexiscan there is less than 1.[address] segment depression noted from the baseline EKG. The EKG portion of the Lexiscan is nondiagnostic. Cardiac Stress and Resting SPECT Images: Cardiac Stress and Resting SPECT images were obtained using technetium 99m Myoview 31.2 mCi stress and 10.73 mCi at rest. Gated SPECT for analysis of segmental wall motion and calculation of the ejection fraction also done, prone images were also obtained. Cardiac stress and resting SPECT images show moderate to large sized area of fixed defect involving the anterior anterior apical, apical and anteroseptal wall consistent with area of myocardial scarring with minimal sammy-infarct ischemia. Computer derived ejection fraction is 39% with marked anterior, anterior apical, apical and anteroseptal wall hypokinesis. Right ventricle is mildly enlarged with normal contractility. Conclusion: 1. The EKG portion of the Lexiscan is nondiagnostic. 2. Scintigraphic evidence of extensive myocardial scarring involving the anterior, anterior apical, apical and anteroseptal wall with minimal sammy-infarct ischemia. Computer derived ejection fraction is 39% with segmental wall motion abnormality described above, right ventricle is mildly enlarged with normal contractility. 3. Abnormal Lexiscan Myoview study. Electronically signed by : Devan Tolliver MD 03/04/2021 12:50:39
--- NOTE | 2021-03-04 06:08 | CA_ITS ---
APPROVED REPORT EXAM: Comprehensive 2D, Doppler, and color-flow Echocardiogram Recreation Therapist: Betty Tamez, RCS, RVS Ht: 5 ft 0 in Wt: 158lbs BSA: 1.69 BP: 136/74 mmHg Indications: CP,COPD, Smoker, CAD-Hx VA stent,with hypokinetc [place] and basal Ineroseptal WMA, previous EF 45%, DM, HTN, HLD 2D Dimensions Left Atrium 3.79 cm LA Volume 68.70 mL LVOT 1.87 cm (M/F) 1.5-2.5 LA Volume Index 40.70 mL/m2 (M/F) 16-34 M-Mode Dimensions RVDd 2.37 cm (0.9-2.6) LA Diam 3.64 cm (1.9-4.0) LVDd 5.35 cm (3.5-5.7) Ao Diam 3.01 cm (2.0-3.7) LVDs 3.62 cm (3.5-5.7) IVSd 1.00 cm (0.6-1.1) PWd 0.97 cm (0.6-1.1) EF (Teich) 55.00% EPSs 1.00 cm FS 32.30% EDV (Teich) 138.30 mL TAPSE 2.43 (<1.7) ESV (Teich) 55.20 mL LV Diastology E Decel Time 280.00 (160-240 msec) E/A Ratio 0.86 MED E' 4.70 (< 7 cm/sec) MED A' 6.80 cm/s E'/MED E' Ratio 16.98 (>14) LAT E' 5.20 (<10 cm/sec) LAT A' 7.50 cm/s E/LAT E' Ratio 15.35 (>14) Aortic Valve LVOT Max 114.00 (70-110 cm/s) LVOT VTI 20.93 cm AoV Peak Andrew. 124.00 (50-130 cm/s) AO Peak GR. 6.20 mmHg AO Mean GR. 3.10 (<5 mmHg) AO VTI 24.55 (18-25 cm) LIZETH (VTI) 2.34 (2.5-4.5 cm2) Mitral Valve MV A Velocity 92.00 (40-130 cm/s) E/A Ratio 0.86 MV Decel. Time 280.00 (160-240 ms) MV Mean Gr. 1.80 (<2mmHg) MV PHT 67.00 ms Pulmonary Valve PV Peak Velocity 82.00 (50-150 cm/s) MS End VMAX 139.00 cm/s Tricuspid Valve TR P. Velocity 183.00 cm/s RAP Estimate 10.00 mmHg RVSP 23.40 mmHg Left Ventricle Left atrium is mildly enlarged, left ventricle is normal size, mild concentric left ventricular hypertrophy, visually estimated ejection fraction approximately 40 to 45%, there is marked hypokinesis involving mid to distal septum, anterior, anterior apical and apical wall. Grade 1 diastolic dysfunction seen with tissue Doppler evidence of raise left atrial pressure. Right Ventricle Right atrium and right ventricle are mildly enlarged with normal contractility. Aortic Valve Aortic valve is minimally thickened and fibrosed, there is no aortic stenosis or aortic insufficiency. Mitral Valve Mitral valve grossly normal, there is trace mitral regurgitation. Tricuspid Valve Tricuspid valve grossly normal, there is trace tricuspid regurgitation, tricuspid regurgitation jet velocity is inadequate for calculation of the right ventricular systolic pressure. Pulmonic Valve Pulmonic valve is poorly visualized. Great Vessels Aortic root is normal size. Inferior vena cava is normal size with normal inspiratory collapse. Pericardium No significant pericardial effusion noted. Conclusion 1. Mild biatrial enlargement, normal left ventricular size, mild concentric left ventricular hypertrophy, visually estimated ejection fraction approximately 40 to 45% with multiple segmental wall motion abnormality described above, grade 1 diastolic dysfunction seen with tissue Doppler evidence of raise left atrial pressure. 2. Mildly enlarged right ventricle with normal contractility. 3. Trace mitral and tricuspid regurgitation. 4. No significant pericardial effusion noted. 5. Inferior vena cava is normal size with normal inspiratory collapse. Electronically signed by : Devan Tolliver MD 03/04/2021 13:54:07
--- NOTE | 2021-03-04 08:25 | HMH.ITSHM ---
Current Home Medications as stated by this patient Tati Jones or fuels sales representative. []METFORMIN MEDROXYPROGESTERONE LISINOPRIL ISOSORBIDE HCTZ IRON DULOXETINE CLOPIDOGREL CARVEDILOL ATORVASTATIN ASA ALBUTEROL
== END ==
PROVIDERS: PCP Internal Medicine Adolescent Medicine; Visit Provider Nurse Practitioner Family
DX: R06.00 Dyspnea, unspecified; I25.10 Atherosclerotic heart disease of native coronary artery without angina pectoris; I11.0 Hypertensive heart disease with heart failure; I50.20 Unspecified systolic (congestive) heart failure; I50.22 Chronic systolic (congestive) heart failure; I27.20 Pulmonary hypertension, unspecified; E11.9 Type 2 diabetes mellitus without complications; E78.5 Hyperlipidemia, unspecified; F17.200 Nicotine dependence, unspecified, uncomplicated; J44.9 Chronic obstructive pulmonary disease, unspecified; R94.31 Abnormal electrocardiogram [ECG] [EKG]; Z95.810 Presence of automatic (implantable) cardiac defibrillator; Z79.84 Long term (current) use of oral hypoglycemic drugs
CPT/HCPCS: 78452; 93017; 93306; A9502; J2785

== ENCOUNTER → 2021-03-19 09:39 | Outpatient (CLI) | payer MEDICARE, OTHER, SELFPAY ==
[2021-03-19 10:47] LABS: Basophils % 0.7 % (0.1-2.0); Eosinophils # 0.1 K/mm3 (0.0-0.4); Eosinophils % 0.9 % (0.1-12.0); Hemoglobin 15.3 g/dL (12.2-16.2); Lymphocytes # 1.9 K/mm3 (0.7-4.5); Lymphocytes % 32.7 % (10-50); Mean Corpuscular HGB Conc 31.3 g/dL (31.8-35.4); Mean Corpuscular Hemoglobin 29.9 pg (27.0-31.2); Mean Corpuscular Volume 95.7 fl (81-99); Monocytes # 0.4 K/mm3 (0.1-1.0); Monocytes % 6.3 % (1.7-9.3); Neutrophils # 3.5 K/mm3 (1.8-7.8); Neutrophils % 59.3 % (37.0-80.0); Platelet Count 254 K/mm3 (142-424); Red Blood Count 5.13 M/mm3 (4.20-5.40); White Blood Count 5.8 K/mm3 (4.8-10.8)
[2021-03-19 11:06] LABS: Chloride 101 mmol/L (98-107); Sodium 134 mmol/L (136-145)
[2021-03-19 11:09] LABS: Blood Urea Nitrogen 12 mg/dl (7-17); Estimated Glomerular Filt Rate 77 ml/min (>60); GFR (African American) 93 ML/MIN (>60)
[2021-03-19 11:10] LABS: Calcium 9.6 mg/dl (8.4-10.2); Carbon Dioxide 28 mmol/L (22.0-30.0); Glucose 80 mg/dl (74-100)
== END ==
PROVIDERS: PCP Internal Medicine Adolescent Medicine; Visit Provider Nurse Practitioner Family
DX: E11.9 Type 2 diabetes mellitus without complications (principal); E78.2 Mixed hyperlipidemia; F17.200 Nicotine dependence, unspecified, uncomplicated; I11.0 Hypertensive heart disease with heart failure; I20.8 Other forms of angina pectoris; I27.20 Pulmonary hypertension, unspecified; I50.20 Unspecified systolic (congestive) heart failure; J44.9 Chronic obstructive pulmonary disease, unspecified; R06.00 Dyspnea, unspecified; R94.30 Abnormal result of cardiovascular function study, unspecified; R94.31 Abnormal electrocardiogram [ECG] [EKG]; Z95.5 Presence of coronary angioplasty implant and graft; Z95.810 Presence of automatic (implantable) cardiac defibrillator; I63.9 Cerebral infarction, unspecified; Z01.812 Encounter for preprocedural laboratory examination; Z11.52 Encounter for screening for COVID-19; Z79.4 Long term (current) use of insulin
CPT/HCPCS: 36415; 80048; 85025; C9803; U0003; U0005

== ENCOUNTER 2021-03-21 08:28 | Day surgery (SDC) | payer MEDICARE, OTHER, SELFPAY ==
[2021-03-21] VITALS (13 sets, daily range): BP systolic 118–184; BP diastolic 68–106; PULSE 60–70; RESP 16–18; TEMP 36.6–36.9; O2SAT 91–98; BMI 30.8
--- NOTE | 2021-03-21 07:04 | IR_ITS ---
APPROVED REPORT Patient Location: Outpatient PROCEDURES Left heart catheterization Left ventriculogram Selective coronary angiogram Drug-eluting stent deployment to the mid and distal LAD INDICATION Recurrent angina pectoris, Coronary artery disease, Abnormal Myoview Informed consent was obtained prior to the procedure. COMPLICATIONS None Estimated Blood Loss: Less than 10 mls TECHNIQUE One percent lidocaine used to anesthetize the right anterior aspect of the wrist. The right radial artery was accessed via the Seldinger technique. A 6 Hebrew sheath was placed in the right radial artery. 2.5 mg of verapamil, 800 mcg of nitroglycerin, 1mg Lidocaine and 5000 U Heparin were given through the arterial sheath. The BioPolypa catheter was also used to perform left heart catheterization, left ventriculogram and selective coronary angiogram. At the end of the procedure therapeutic heparin was administered giving a therapeutic ACT and the guide catheter was placed in the left main artery where a Choice PT extra-support wire was placed distally in the LAD. A 2.25 x 38 mm resolute [place] stent was placed in the mid LAD and deployed at 20 scarlet reducing the stenosis. A 2.5 x 12 mm balloon was then placed at an area of interest and deployed at 20 scarlet to post dilate giving excellent angiographic results. Nitroglycerin was administered however a persistent lesion was present therefore a 2 mm x 12 mm resolute [place] stent was deployed at 12 scarlet reducing this severe stenosis to 0%. This balloon was brought back and deployed at 20 scarlet the post dilate and help mesh the distal portion of the 38 mm stent. After achieving excellent angiographic results apparatus was removed the sheath was removed and hemostasis was achieved using TR banding patient was transferred to the postop already in stable condition. NANDO-3 flow was present before and after the procedure ANGIOGRAPHIC RESULTS The left main artery Has distal 20 to 30% stenosis The left anterior descending artery Has a stent in the proximal mid and distal segment. The proximal portion of the stent has 40% concentric in-stent restenosis while the midportion has a long 80 to 90% in-stent restenosis. The circumflex artery Is nondominant with proximal ostial 40% stenosis The right coronary artery Is large and dominant with a proximal to mid vessel 40% stenosis with distal 30% stenoses. Large posterior descending artery has an ostial 80% concentric stenosis while a large posterior lateral branch has a 70% stenosis at the origin of a large 2.75 mm branch The RAYMOND ventriculogram reveals Dilated ventricle severe anterior wall hypokinesis with estimated ejection fraction of 25% The left ventricular end-diastolic pressure 20 mmHg IMPRESSION Coronary disease as described above Successful stenting of the mid to distal LAD severe disease reduced to 0% with 2 contiguous drug-eluting stents Large regional wall motion abnormality Persistent disease in the right coronary artery as described above Borderline elevated LVEDP PLAN 1. Dual antiplatelet therapy 2. Patient absolutely must discontinue tobacco products 3. LDL less than 55 4. Standard therapy for systolic heart failure Electronically signed by : Richard Otero MD 03/21/2021 19:50:14
--- NOTE | 2021-03-21 12:52 | HMH.PHACLD ---
Tati Jones has received discharge medication counseling on the following medications: PATIENT IS CURRENTLY TAKING CARVEDILOL 25 MG BID, ATORVASTATIN 40 MG HS, LISINOPRIL 40 MG DAILY, ASPIRIN [address] DAILY, AND CLOPIDOGREL 75 MG DAILY. HOLDING METFORMIN FOR 2 DAYS.
--- NOTE | 2021-03-21 13:23 | SUR.PHASEII ---
REPORT CALLED TO POST OP NURSE
[2021-03-21 14:49] LABS: CATHL Activated Clotting Time > 400 SEC (74-125)
== END 2021-03-21 14:30 | disposition home or self-care (01) ==
LOC: CATHLAB 08:29
PROVIDERS: PCP Internal Medicine Adolescent Medicine; Visit Provider Internal Medicine
DX: E11.9 Type 2 diabetes mellitus without complications (principal); E78.2 Mixed hyperlipidemia; F17.210 Nicotine dependence, cigarettes, uncomplicated; I11.0 Hypertensive heart disease with heart failure; I27.20 Pulmonary hypertension, unspecified; I50.20 Unspecified systolic (congestive) heart failure; J44.9 Chronic obstructive pulmonary disease, unspecified; R06.00 Dyspnea, unspecified; R94.30 Abnormal result of cardiovascular function study, unspecified; R94.31 Abnormal electrocardiogram [ECG] [EKG]; Z95.5 Presence of coronary angioplasty implant and graft; Z95.810 Presence of automatic (implantable) cardiac defibrillator; I25.110 Atherosclerotic heart disease of native coronary artery with unstable angina pectoris; Z79.899 Other long term (current) drug therapy; T82.855A Stenosis of coronary artery stent, initial encounter; Y83.1 Surgical operation with implant of artificial internal device as the cause of abnormal reaction of the patient, or of later complication, without mention of misadventure at the time of the procedure; Z79.84 Long term (current) use of oral hypoglycemic drugs; Z79.01 Long term (current) use of anticoagulants
CPT/HCPCS: 85347; 92928; 93458; 99152; 99153; C1725; C1769; C1876; C9600; J1644; Q9967

== ENCOUNTER → 2021-03-28 08:42 | Outpatient (CLI) | payer MEDICARE, OTHER, SELFPAY ==
[2021-03-28 09:38] LABS: Basophils % 0.4 % (0.1-2.0); Eosinophils % 0.7 % (0.1-12.0); Hematocrit 46.3 % (37.0-47.0); Hemoglobin 15.2 g/dL (12.2-16.2); Lymphocytes # 1.7 K/mm3 (0.7-4.5); Lymphocytes % 26.3 % (10-50); Mean Corpuscular HGB Conc 32.9 g/dL (31.8-35.4); Mean Corpuscular Hemoglobin 30.3 pg (27.0-31.2); Mean Corpuscular Volume 91.9 fl (81-99); Mean Platelet Volume 6.5 fl (7.4-10.4); Monocytes # 0.4 K/mm3 (0.1-1.0); Monocytes % 5.8 % (1.7-9.3); Neutrophils # 4.2 K/mm3 (1.8-7.8); Platelet Count 227 K/mm3 (142-424); Red Blood Count 5.03 M/mm3 (4.20-5.40); Red Cell Distribution Width 14.5 % (11.5-17.5); White Blood Count 6.3 K/mm3 (4.8-10.8)
[2021-03-28 10:04] LABS: Chloride 101 mmol/L (98-107); Sodium 134 mmol/L (136-145)
[2021-03-28 10:05] LABS: Potassium 4.5 mmoL/L (3.5-5.1)
[2021-03-28 10:07] LABS: Anion Gap 9.5 mEq/L (5-15); Blood Urea Nitrogen 13 mg/dl (7-17); Carbon Dioxide 28 mmol/L (22.0-30.0); Estimated Glomerular Filt Rate 67 ml/min (>60); GFR (African American) 81 ML/MIN (>60)
[2021-03-28 10:08] LABS: Calcium 8.8 mg/dl (8.4-10.2); Glucose 82 mg/dl (74-100)
== END ==
PROVIDERS: PCP Internal Medicine Adolescent Medicine; Visit Provider Internal Medicine
DX: I25.10 Atherosclerotic heart disease of native coronary artery without angina pectoris (principal); Z95.5 Presence of coronary angioplasty implant and graft
CPT/HCPCS: 36415; 80048; 85025

== ENCOUNTER → 2022-06-16 10:12 | Outpatient (CLI) | payer MEDICARE, OTHER, SELFPAY ==
--- NOTE | 2022-06-16 10:17 | MM_ITS ---
PROCEDURE INFORMATION: Exam: Bilateral Screening 3D Mammography Exam date and time: 06/16/2022 10:14 AM Age: 51 years old Clinical indication: Screening mammogram TECHNIQUE: Imaging protocol: Bilateral Screening tomosynthesis and 2D mammography including computer-aided detection (CAD) when performed. COMPARISON: No relevant prior studies available. FINDINGS: MAMMOGRAPHY: Breast composition: There are scattered areas of fibroglandular density. Mass: 0.6 cm mass within the 12 o'clock anterior left breast 4 cm from the nipple should be further assessed with ultrasound. Architectural distortion: No new or suspicious architectural distortion. Calcifications: No new or suspicious calcifications are present Asymmetric density: No new or suspicious asymmetric density is present Skin thickening: None. Axillary adenopathy: None. IMPRESSION: 0.6 cm mass within the 12 o'clock anterior left breast 4 cm from the nipple should be further assessed with ultrasound. ASSESSMENT: BI-RADS category 0: Incomplete-need additional imaging evaluation and/or prior mammograms for comparison.
== END ==
PROVIDERS: PCP Internal Medicine Adolescent Medicine; Visit Provider Internal Medicine Adolescent Medicine
DX: Z12.31 Encounter for screening mammogram for malignant neoplasm of breast (principal)
CPT/HCPCS: 77063; 77067

== ENCOUNTER → 2022-06-27 13:20 | Outpatient (CLI) | payer MEDICARE, OTHER, SELFPAY ==
--- NOTE | 2022-06-27 13:25 | US_ITS ---
PROCEDURE INFORMATION: Exam: US Left Breast, Complete Exam date and time: 06/27/2022 1:50 PM Age: 51 years old Clinical indication: Patient recalled for further evaluation of a left breast mass TECHNIQUE: Imaging protocol: Complete ultrasound of all four quadrants of the left breast and the retroareolar regions, including ultrasound of the axilla when performed. COMPARISON: MG MM DIG SCREENING MAMM BI W/CAD 06/16/2022 10:14 AM FINDINGS: Breast: Sonographic images of the left breast including the retroareolar region, all 4 quadrants and the axilla do not demonstrate any solid masses. 0.5 cm cyst in the 12 o'clock axis 2 cm from the nipple most closely corresponds to the mass on mammography. No architectural distortion or acoustical shadowing. No skin thickening or axillary adenopathy. IMPRESSION: Mass on screening mammography corresponds to underlying cystic change sonographically. There is no mammographic evidence of malignancy.Annual bilateral mammographic screening is recommended unless otherwise clinically indicated. ASSESSMENT: BI-RADS Category 2: Benign
== END ==
PROVIDERS: PCP Internal Medicine Adolescent Medicine; Visit Provider Internal Medicine Adolescent Medicine
DX: R92.8 Other abnormal and inconclusive findings on diagnostic imaging of breast (principal)
CPT/HCPCS: 76641

== ENCOUNTER 2023-06-24 10:35 | Outpatient (CLI) | payer MEDICARE, SELFPAY ==
--- NOTE | 2023-06-24 10:36 | CA_ITS ---
APPROVED REPORT EXAM: Comprehensive 2D, Doppler, and color-flow Echocardiogram Leather Staker: Lisette Shabazz CRT Ht: 4 ft 11 in Wt: 179lbs BSA: 1.76 BP: 104/79 mmHg Indications: Shortness of Breath, CAD, smoker, stent, htn. hld. dm Echo 03/04/21 ef 40-45% 2D Dimensions LA Volume 24.60 mL LA Volume Index 13.70 mL/m2 (M/F) 16-34 M-Mode Dimensions RVDd 2.39 cm (0.9-2.6) LA Diam 3.30 cm (1.9-4.0) LVDd 5.43 cm (3.5-5.7) LVDs 3.64 cm (3.5-5.7) IVSd 1.11 cm (0.6-1.1) PWd 0.86 cm (0.6-1.1) EF (Teich) 60.90% FS 33.00% EDV (Teich) 143.10 mL TAPSE 1.92 (<1.7) ESV (Teich) 55.90 mL LV Diastology MED A' 8.10 cm/s LAT A' 9.40 cm/s Aortic Valve AO Peak GR. 7.10 mmHg Pulmonary Valve PV Peak Velocity 129.0 (50-150 cm/s) Tricuspid Valve TR P. Velocity 127.00 cm/s RAP Estimate 10.00 mmHg RVSP 16.40 mmHg Left Ventricle The left ventricle is normal size. The left ventricular systolic function is normal. The left ventricular ejection fraction is within the normal range. There is increased LV wall thickness. There is normal LV segmental wall motion. Transmitral Doppler flow pattern suggests impaired LV relaxation. LVEF is 55%. Right Ventricle The right ventricle is mildly dilated. The right ventricular systolic function is normal. Atria The left atrium size is normal. The right atrium size is normal. There is no Doppler evidence of interatrial shunt. Aortic Valve The aortic valve opens well. There is no aortic valvular stenosis. No aortic regurgitation is present. Mitral Valve The mitral valve is normal in structure. No evidence of mitral valve stenosis. There is no mitral valve regurgitation noted. Tricuspid Valve The tricuspid valve leaflets are thin and pliable. Trace tricuspid rotation. There is insufficient TR jet to estimate RVSP. Pulmonic Valve The pulmonary valve is normal in structure. Mild pulmonic regurgitation. Great Vessels The aortic root is normal in size. The ascending aorta is not well-visualized. IVC is normal in size and collapses >50% with inspiration. Pericardium There is no pericardial effusion. Other Information Study Quality: Technically Difficult Conclusion Technically difficult study due to poor acoustic windows. Normal biventricular systolic function. Mild RV dilation. Mild [place]. Compared to prior study from 2021, the LVEF has improved and is now normal. Electronically signed by : Fabiana El MD 06/26/2023 22:04:14
== END 2023-06-24 23:59 | disposition home or self-care (01) ==
PROVIDERS: PCP Internal Medicine Adolescent Medicine; Visit Provider Nurse Practitioner
DX: I25.10 Atherosclerotic heart disease of native coronary artery without angina pectoris (principal); Z95.5 Presence of coronary angioplasty implant and graft; E78.2 Mixed hyperlipidemia; R06.00 Dyspnea, unspecified; I50.20 Unspecified systolic (congestive) heart failure; Z95.810 Presence of automatic (implantable) cardiac defibrillator; I11.0 Hypertensive heart disease with heart failure; I50.22 Chronic systolic (congestive) heart failure; I70.1 Atherosclerosis of renal artery; I27.20 Pulmonary hypertension, unspecified
CPT/HCPCS: 93306

== ENCOUNTER 2023-09-06 09:12 | Emergency (ER) | payer MEDICARE, SELFPAY ==
[2023-09-06 09:13] VITALS: BP 128/82; PULSE 78; RESP 20; TEMP 36.7; O2SAT 93; BMI 36.3
--- NOTE | 2023-09-06 09:18 | PC.NURSE ---
dr. suggs at bedside
--- NOTE | 2023-09-06 09:22 | XR_ITS ---
PROCEDURE INFORMATION: Exam: XR Chest Exam date and time: 09/06/2023 9:51 AM Age: 53 years old Clinical indication: Cough and dyspnea and other: Chest pain, congestion; Additional info: Cough, dyspnea TECHNIQUE: Imaging protocol: Radiologic exam of the chest. Views: 2 views. COMPARISON: CR [id number] XR chest portable 04/28/2017 11:46 AM FINDINGS: Lungs: Prominent lung markings/peribronchial thickening with patchy airspace opacities in the lung bases. Pleural spaces: Blunting of the RIGHT costophrenic angle suggestive of small pleural effusion/thickening. Heart/Mediastinum: Cardiomegaly with pulmonary vascular congestion. LEFT chest wall pacemaker. Calcification and unfolding of the aortic arch. Bones/joints: Chronic degenerative changes in the visualized spine and shoulder joint(s). IMPRESSION: 1. Chronic cardiopulmonary changes with patchy consolidation in the lung bases. 2. Possibility of underlying CHF/pulmonary edema cannot be excluded. Recommend correlation with pertinent clinical history and follow-up as indicated.
[2023-09-06 09:23] VITALS: BP 128/82; PULSE 70; RESP 17; TEMP 36.8; O2SAT 92
--- NOTE | 2023-09-06 09:24 | HMH.EDGENADL ---
Discharge Plan Disposition Patient Disposition: Home, Self-Care Prescriptions Prescriptions: New benzonatate 100 mg capsule 100 mg PO TID PRN (Reason: cough) 5 Days Qty: 20 0RF albuterol sulfate 90 mcg/actuation HFA aerosol inhaler 4 inh inhalation Q4H PRN (Reason: shortness of breath or wheezing) Qty: 8.5 0RF Rx Instructions: 4 puffs every 4 hours for 48 hours then as needed for shortness of breath or wheezing following doxycycline hyclate 100 mg capsule 100 mg PO BID 7 Days Qty: 14 0RF No Action duloxetine 60 mg capsule,delayed release(DR/EC) 60 mg PO DAILY Jardiance 10 mg tablet 10 mg PO DAILY Qty: 30 3RF aspirin [Adult Low Dose Aspirin] 81 mg tablet,delayed release (DR/EC) 81 mg PO QDAY Spiriva Respimat 2.5 mcg/actuation mist 2 puff INHALATION DAILY albuterol sulfate 90 mcg/actuation HFA aerosol inhaler 1 puff INHALATION Q6H PRN (Reason: copd) atorvastatin 40 mg tablet 40 mg PO DAILY Qty: 90 5RF carvedilol 25 mg tablet 50 mg PO BID Qty: 120 5RF clopidogrel 75 mg tablet 75 mg PO DAILY Qty: 90 3RF ezetimibe 10 mg tablet 10 mg PO DAILY Qty: 90 3RF lisinopril 40 mg tablet 40 mg PO DAILY Qty: 90 3RF metformin 500 mg tablet 500 mg PO BID Qty: 60 0RF Rx Instructions: Pt. needs to follow up with primary care for future refills, as this is a diabetes medication medroxyprogesterone 10 mg tablet See Rx Instructions .ROUTE .COMPLEX Qty: 30 11RF Dose Instruction: TAKE 1 TABLET BY MOUTH ONCE DAILY FOR MENSTRUAL CYCLE Rx Instructions: TAKE 1 TABLET BY MOUTH ONCE DAILY FOR MENSTRUAL CYCLE isosorbide mononitrate 30 mg tablet extended release 24 hr See Rx Instructions .ROUTE .COMPLEX Qty: 90 3RF Dose Instruction: TAKE 1 TABLET BY MOUTH ONCE DAILY IN THE MORNING FOR HEART Rx Instructions: TAKE 1 TABLET BY MOUTH ONCE DAILY IN THE MORNING FOR HEART Referrals Follow up/Referrals: Gray Latham MD [Primary Care Provider] - See instructions Clinical Impressions Clinical Impression: Acute exacerbation of chronic obstructive pulmonary disease, Chest wall muscle strain Print Language Print Language: Armenian Discharge ED Provider: Sammy Hardin General Adult HPI General Chief complaint: Upper Respiratory Infection Stated complaint: cough and congestion Time Seen by Provider: 09/06/23 09:15 Mode of Arrival: Ambulatory Source of Information: Patient Limitations: No Limitations Description of Symptoms (Recalled from ER Triage Doc. by RN): pt has had a cough and chest congestion for a week now and treating it with otc meds arent helping and patient doesnt want it affectingher heart problems. denies any fever, n/v, and alox4 upon triage History of Present Illness HPI narrative: Patient is a 53-year-old female with a history of extensive cardiopulmonary disease including COPD heart failure coronary artery disease who presents today with 1-1/2 weeks of cough little bit of wheezing and sputum production not improving and she started developing some chest discomfort which prompted her emergency department visit. She states that the chest pain is only with coughing or deep inspiration and is nonexertional not at rest and not at any other time. No fevers or chills. No significant shortness of breath. She does not wear oxygen at home. She does continue to smoke. Related Data Home Medications ?Medication ?Instructions ?Recorded ?Confirmed aspirin 81 mg tablet,delayed 81 mg PO QDAY heart 03/09/17 05/25/23 release (Adult Low Dose Aspirin) albuterol sulfate 90 mcg/actuation 1 puff inhalation Q6H PRN copd 10/26/18 05/25/23 aerosol inhaler tiotropium bromide 2.5 2 puff inhalation DAILY COPD 10/26/18 05/25/23 mcg/actuation mist for inhalation (Spiriva Respimat) duloxetine 60 mg capsule,delayed 60 mg PO DAILY mood 03/07/19 05/25/23 release Previous Rx's ?Medication ?Instructions ?Recorded metformin 500 mg tablet 500 mg PO BID Diabetes #60 tabs 10/21/17 medroxyprogesterone 10 mg tablet See Rx Instructions .Route 05/01/21 .COMPLEX #30 tabs atorvastatin 40 mg tablet 40 mg PO DAILY cholestrol #90 tabs 08/27/22 carvedilol 25 mg tablet 50 mg (2 x 25 mg) PO BID Heart 08/27/22 rhythm #120 tabs clopidogrel 75 mg tablet 75 mg PO DAILY antiplatelet #90 08/27/22 tabs ezetimibe 10 mg tablet 10 mg PO DAILY #90 tabs 08/27/22 lisinopril 40 mg tablet 40 mg PO DAILY High blood pressure 08/27/22 #90 tabs empagliflozin 10 mg tablet 10 mg PO DAILY #30 tabs 05/25/23 (Jardiance) isosorbide mononitrate 30 mg See Rx Instructions .Route 08/19/23 tablet,extended release 24 hr .COMPLEX #90 tabs albuterol sulfate 90 mcg/actuation 4 inh inhalation Q4H PRN shortness 09/06/23 aerosol inhaler of breath or wheezing #8.5 grams benzonatate 100 mg capsule 100 mg PO TID PRN cough 5 days #20 09/06/23 caps doxycycline hyclate 100 mg capsule 100 mg PO BID 7 days #14 caps 09/06/23 Allergies Allergy/AdvReac Type Severity Reaction Status Date / Time Penicillins [PENICILLINS] Allergy Mild Verified 05/25/23 10:37 [facility] Disclaimer: The information contained in this section may have been updated after the patient was seen, as this information can be updated by other users. Medical History Renal artery stenosis Fatigue Angina, class III Abnormal result of cardiovascular function study LV dysfunction Social History Smoking Status: Current every day smoker tobacco type: cigarettes packs per day: 1 second hand exposure: No alcohol intake: never substance use type: denies use current occupational status: unemployed Travel in the last 8 weeks: Inside the [place] household members: spouse housing: house current occupation: [employer] current occupational exposures/hazards: No caffeine: Yes (6-10 cups day) ROS Obtained: Yes All systems reviewed & no additional complaints except as documented Physical Exam General General appearance: alert Respiratory Respiratory exam: Present wheezes (Scant wheezing with very mild prolonged expiratory phase) and other (Oxygen saturation is 93% on room air otherwise breathing comfortably no significant respiratory distress etc.) Cardiovascular Cardiovascular exam: Present regular rate Neurological Exam Neurological exam: Present alert and oriented X3 Medical Decision Making Tacho Inquiry Pt receiving controlled substance: No Vital Signs: 09/06/23 09:13 09/06/23 09:23 09/06/23 09:34 Temperature 98.1 F 98.2 F Temperature Source Oral Oral Pulse Rate 70 70 Pulse Rate [Right Radial] 78 Respiratory Rate 20 17 Blood Pressure 128/82 128/82 Blood Pressure [Right Arm] 128/82 Blood Pressure Mean [Right Arm] 97 02 Sat by Pulse Oximetry 93 L 92 L 93 L Oxygen Delivery Method Room Air Room Air Room Air 09/06/23 10:00 Temperature Temperature Source Pulse Rate 63 Pulse Rate [Right Radial] Respiratory Rate Blood Pressure Blood Pressure [Right Arm] Blood Pressure Mean [Right Arm] 02 Sat by Pulse Oximetry 99 Oxygen Delivery Method Room Air Lab Data Lab results reviewed: Yes I reviewed the patient's lab results. Lab Results 09/06/23 09:23: SARS-CoV-2 (PCR) Not detected, Influenza A Untype (PCR) Not detected, Influenza Type B (PCR) Not detected 09/06/23 09:30: WBC 6.8, RBC 5.51 H, Hgb 16.0, Hct 50.8 H, MCV 92.2, MCH 29.0, MCHC 31.5 L, RDW 16.3, Plt Count 184, MPV 7.1 L, Neut % (Auto) 69.5, Lymph % (Auto) 22.0, [place] % (Auto) 6.3, Eos % (Auto) 1.2, Baso % (Auto) 1.1, Neut # (Auto) 4.7, Lymph # (Auto) 1.5, [place] # (Auto) 0.4, Eos # (Auto) 0.1, Baso # (Auto) 0.1, Sodium 138, Potassium 4.8, Chloride 103, Carbon Dioxide 31 H, Anion Gap 8.8, BUN 10, Creatinine 0.90, Estimated Creat Clear 95, Estimated GFR 66, Est GFR ( Amer) 80, Glucose 136 H, Calcium 9.6, Total Bilirubin 0.8, AST 30, ALT 30, Alkaline Phosphatase 88, Total Protein 7.8, Albumin 3.8, Globulin 4.0 H, Albumin/Globulin Ratio 1.0 L 09/06/23 09:30 09/06/23 09:30 Orders (Tests/Meds): ED MEDICATIONS Discontinued Medications Generic Name Dose Route Start Last Admin Trade Name Freq PRN Reason Stop Dose Admin Acetaminophen 1,000 mg 09/06/23 09:22 09/06/23 09:32 Acetaminophen 1,000mg/100ml Vial IV 09/06/23 09:23 1,000 mg ONCE ONE Administration Albuterol/Ipratropium 3 ml 09/06/23 09:22 09/06/23 09:32 Ipratropium/Albuterol 3 Ml Neb IH 09/06/23 09:23 3 ml ONCE ONE Administration Dexamethasone Sodium Phosphate 10 mg 09/06/23 09:22 09/06/23 09:32 Dexamethasone 4mg/Ml 1ml Vial IV 09/06/23 09:23 10 mg ONCE ONE Administration Doxycycline Hyclate 100 mg 09/06/23 09:22 09/06/23 09:32 Doxycycline Hycl 100 Mg Tablet PO 09/06/23 09:23 100 mg ONCE ONE Administration ORDERS Category Date Time Status Chest XR 2 view (NOT portable) [XR chest 2V] Stat Exams 09/06/23 09:22 Completed CBC w/Auto Diff [Complete Blood Count Auto Diff] Stat Lab 09/06/23 09:30 Completed CMP [Comprehensive Metabolic Panel] Stat Lab 09/06/23 09:30 Completed Rapid PCR Covid and Flu A/B Stat Lab 09/06/23 09:23 Completed Trop I [Troponin I] Stat Lab 09/06/23 10:40 Ordered Troponin I Q3H Lab 09/06/23 13:45 Ordered Troponin I Q3H Lab 09/06/23 16:45 Ordered ECG Data Tracing #1: I reviewed this ECG and interpreted as documented below: Ventricular of 70 no acute ischemic changes noted no significant ST elevations or depressions there are nonspecific T wave inversions in the high lateral and lateral precordial leads there is left axis deviation and LVH HEART Score History (anamnesis): Slightly suspicious ECG: Non-specific disturbance Age: 45-65 years Risk factors: Atherosclerosis history Troponin: </= normal limit HEART Score: 4 Medical Decision Narrative: 53-year-old presented today with atypical chest pain and cough increase sputum production wheezing over the last week and a half pain is most likely secondary to musculoskeletal discomfort from the cough. Will get a single troponin EKG to rule out any ischemic involvement. Does not consistent with pulmonary embolism. Will treat her for COPD exacerbation with nebs steroids antibiotics also administer Tylenol for her discomfort. Reassessment 10:38 AM patient feeling much better chest x-ray performed to person interpreted shows no acute cardiopulmonary emergency specifically no pneumonia. She does have an AICD in place which appears to be in its appropriate location. EKG was performed which does show some high lateral and lateral precordial T wave inversions which are consistent with old EKGs and unchanged no acute ischemic changes noted. Troponin was added on later but have very low suspicion for acute coronary syndrome will call patient back if it is elevated. Again her chest pain is only associated with chest inhalation or any type of cough. Additionally she felt much better after treatment of a COPD exacerbation. She has no chest pain upon reassessment after nebs steroids antibiotics and Tylenol. I will follow-up on her troponin result. Doxycycline and albuterol benzonatate have been prescribed to her pharmacy and she has been given strict return precautions if she has any worsening symptoms specifically exertional chest pain. Critical Care Critical Care Time Critical Care Time: No
--- NOTE | 2023-09-06 09:29 | ECG_ITS ---
APPROVED REPORT Exam: Resting ECG HR:70 bpm ECG Measurements Heart Rate 70 AXES WY 156 P 62 QRSd 99 QRS -38 QT 404 T 120 QTc 425 Conclusion SINUS RHYTHM POSSIBLE LEFT ATRIAL ENLARGEMENT [-0.1mV P-WAVE IN V1/V2] LEFT AXIS DEVIATION [QRS AXIS < -30] LEFT VENTRICULAR HYPERTROPHY AND ST-T CHANGE [VOLTAGE CRITERIA PLUS ST/T ABNORMALITY] POSSIBLE SEPTAL MYOCARDIAL INFARCTION , PROBABLY RECENT [30 ms Q WAVE IN V1/V2] ACUTE VT UNCONFIRMED REPORT Electronically signed by : Umair Hardin, 09/06/2023 14:32:32
[2023-09-06] MEDS: IPRATROPIUM/ALBUTEROL 3 ML NEB IH (09:32)
[2023-09-06] MEDS: DOXYCYCLINE HYCL 100 MG TABLET PO (09:32)
[2023-09-06] MEDS: DEXAMETHASONE 4MG/ML 1ML VIAL 10 MG IV (09:32)
[2023-09-06] MEDS: ACETAMINOPHEN 1,000MG/100ML VIAL 1000 MG IV (09:32)
[2023-09-06 09:34] VITALS: BP 128/82; PULSE 70; O2SAT 93
[2023-09-06 09:37] LABS: Coronavirus 19, PCR Not Detected (NotDetected); Influenza A, PCR Not Detected (NotDetected); Influenza B, PCR Not Detected (NotDetected)
[2023-09-06 09:41] LABS: Basophils # 0.1 K/mm3 (0-0.2); Basophils % 1.1 % (0.1-2.0); Eosinophils # 0.1 K/mm3 (0.0-0.4); Eosinophils % 1.2 % (0.1-12.0); Hematocrit 50.8 % (37.0-47.0); Lymphocytes # 1.5 K/mm3 (0.7-4.5); Mean Corpuscular HGB Conc 31.5 g/dL (31.8-35.4); Mean Corpuscular Volume 92.2 fl (81-99); Mean Platelet Volume 7.1 fl (7.4-10.4); Monocytes # 0.4 K/mm3 (0.1-1.0); Monocytes % 6.3 % (1.7-9.3); Neutrophils # 4.7 K/mm3 (1.8-7.8); Neutrophils % 69.5 % (37.0-80.0); Platelet Count 184 K/mm3 (142-424); Red Blood Count 5.51 M/mm3 (4.20-5.40); Red Cell Distribution Width 16.3 % (11.5-17.5); White Blood Count 6.8 K/mm3 (4.8-10.8)
[2023-09-06 09:56] LABS: Alanine Aminotransferase 30 U/L (12-78); Albumin Level 3.8 g/dl (3.5-5.0); Alkaline Phosphatase 88 U/L (38-126); Anion Gap 8.8 mEq/L (5-15); Aspartate Amino Transferase 30 U/L (14-36); Bilirubin,Total 0.8 mg/dl (0.2-1.3); Blood Urea Nitrogen 10 mg/dl (7-17); Calcium 9.6 mg/dl (8.4-10.2); Carbon Dioxide 31 mmol/L (22.0-30.0); Chloride 103 mmol/L (98-107); Creatinine Clearance Estimated 95 mL/min (50-200); Estimated Glomerular Filt Rate 66 ml/min (>60); GFR (African American) 80 ML/MIN (>60); Glucose 136 mg/dl (74-100); Potassium 4.8 mmoL/L (3.5-5.1); Sodium 138 mmol/L (136-145); Total Protein,Serum 7.8 g/dl (6.3-8.2)
--- NOTE | 2023-09-06 09:59 | PC.NURSE ---
radiology is taking her for an x-ray now.
--- NOTE | 2023-09-06 09:59 | PC.NURSE ---
PT TO XR
[2023-09-06 10:00] VITALS: PULSE 63; O2SAT 99
--- NOTE | 2023-09-06 10:05 | PC.NURSE ---
pt back in room from Rad
[2023-09-06 10:40] VITALS: BP 128/82; PULSE 64; RESP 16; TEMP 36.7; O2SAT 98
[2023-09-06 11:02] LABS: Troponin I < 0.01 ng/ml (0.00-0.034)
== END 2023-09-06 10:41 | disposition home or self-care (01) ==
PROVIDERS: Emergency Provider Student in an Organized Health Care Education/Training Program; PCP Internal Medicine Adolescent Medicine
DX: J44.1 Chronic obstructive pulmonary disease with (acute) exacerbation (principal); R07.89 Other chest pain; R06.2 Wheezing; F17.210 Nicotine dependence, cigarettes, uncomplicated; I11.0 Hypertensive heart disease with heart failure; I50.9 Heart failure, unspecified; I25.119 Atherosclerotic heart disease of native coronary artery with unspecified angina pectoris; Z95.5 Presence of coronary angioplasty implant and graft
CPT/HCPCS: 71046; 80053; 84484; 85025; 87636; 93005; 96374; 96375; 99284; J0131; J1100; J7620

== ENCOUNTER 2024-07-16 13:00 | Emergency (ER) | payer MEDICARE, SELFPAY ==
[2024-07-16] VITALS (29 sets, daily range): BP systolic 77–124; BP diastolic 44–68; PULSE 56–71; RESP 14–23; TEMP 36.7–36.8; O2SAT 82–99; BMI 34.9
--- NOTE | 2024-07-16 13:15 | ECG_ITS ---
APPROVED REPORT Exam: Resting ECG HR:69 bpm ECG Measurements Heart Rate 69 AXES RI 146 P 60 QRSd 98 QRS -26 QT 443 T 104 QTc 462 Conclusion SINUS RHYTHM POSSIBLE LEFT ATRIAL ENLARGEMENT [-0.1mV P-WAVE IN V1/V2] POSSIBLE LEFT VENTRICULAR HYPERTROPHY [VOLTAGE CRITERIA PLUS LAE OR QRS WIDENING] No significant interval change no STEMI Electronically signed by : RICCARDO TOMAS, 07/21/2024 00:06:20
--- NOTE | 2024-07-16 13:18 | XR_ITS ---
PROCEDURE INFORMATION: Exam: XR Chest Exam date and time: 07/16/2024 1:46 PM Age: 53 years old Clinical indication: Shortness of breath; Prior surgery; Surgery date: 6+ months; Surgery type: Pacemaker; Additional info: SOA TECHNIQUE: Imaging protocol: Radiologic exam of the chest. Views: 1 view. COMPARISON: CR XR CHEST 2V 09/06/2023 9:51 AM FINDINGS: Tubes, catheters and devices: Left subclavian pacemaker leads overlie the right atrium and right ventricle. Lungs: Unremarkable. No consolidation. Pleural spaces: Unremarkable. No pleural effusion. No pneumothorax. Heart/Mediastinum: Unremarkable. No cardiomegaly. Bones/joints: Unremarkable. IMPRESSION: No acute cardiopulmonary findings.
--- NOTE | 2024-07-16 13:22 | PC.NURSE ---
TRN noticed low bp on pt monitor. 92/62 BP cyclesd [id number] to monitor pt. pt with no complaints. 1331 83/53 1337 77/45 pt placed in trendelenburg position. notified. due to heart failure no fluids right now. BP monitoring q5 minutes, see charting.
[2024-07-16 13:30] LABS: Lactate Venous 1.8 mmol/L (0.4-2.0); VBG Base Excess 2.1 mmol/L (-2.4-2.3); VBG Oxygen Saturation 77.8 % (50-70); VBG PH 7.33 mmol/L (7.31-7.41); VBG PO2 42.8 mmol/L (28-40); VBG Total CO2 29.7 mmol/L (23-27)
[2024-07-16 13:30] LABS: Coronavirus 19, PCR Not Detected (NotDetected); Influenza A, PCR Not Detected (NotDetected); Influenza B, PCR Not Detected (NotDetected)
--- OUTSIDE RECORDS SUMMARY | 2024-07-16 13:30 | XMS_ITS ---
Author Organization Unknown Plan of Treatment Description Planned Activity Planned Timing - Telephone encounter - Patient Care team information Name Category Status Period Participants - - Proposed period not known -
--- OUTSIDE RECORDS SUMMARY | 2024-07-16 13:30 | XMS_ITS ---
Author Organization Unknown TREATMENT PLAN Planned Care Start Date Provider Encounter for Check-up [phone] [facility]
--- OUTSIDE RECORDS SUMMARY | 2024-07-16 13:30 | XMS_ITS | Referral Summary ---
Author Organization [employer] Address [address] [place] [address] Care Team Providers Care Scrap Worker Name Role Phone Unavailable Primary Care Provider Unavailabl e Social History Tobacco Use Types Packs/Day Years Used Date Smoking Tobacco: Never Assessed Overall Financial Resource Strain (CARDIA) Answe r Date Recorded How hard is it for you to pa y for the very basics like food, housing, medical care, and heating? Not hard at all 03/24/2024 Hunger Vital Sign Answer Date Recorded Within the past 12 months, y ou worried that your food would run out before you got the money to buy more. Never true 03/24/19 25 Within the past 12 months, t he food you bought just didn't last and you didn't have money to get more. Never true 03/24/2024 PRAPARE - Transportation Answer Date Re corded In the past 12 months, has l ack of transportation kept you from medical appointments or from getting medications? No 03/12 In the past 12 months, has l ack of transportation kept you from meetings, work, or from getting things needed for daily living? No 03/24/2024 Housing Stability Vital Sign Answer Juaquin e Recorded In the last 12 months, was t here a time when you were not able to pay the mortgage or rent on time? No 03/24/2024 Number of Times Moved in the Last Year Not on fi le 03/24/2024 At any time in the past 12 m [facility], were you homeless or living in a fdc (including now)? No 03/24/2024 Comments Unknown Sex and Gender Information Value Date Recorded Sex Assigned at Not on file Legal Sex Female 4:44 PM CDT Gender Identity Not on file Sexual Orientation Not on file Plan of Treatment Not on file
--- OUTSIDE RECORDS SUMMARY | 2024-07-16 13:30 | XMS_ITS | Clinical Summary ---
Author Organization [employer] Address [address] [place] [address] Care Team Providers Care Dynamite Reclaimer Name Role Phone Unavailable Primary Care Provider [...] any time in the past 12 m [facility], were you homeless or living in a care home (including now)? No 03/24/2024 Comments Unknown Sex and Gender Information Value Date Recorded Sex Assigned at Not on file Legal Sex Female 4:44 PM CDT Gender Identity Not on file Sexual Orientation Not on file Plan of Treatment Not on file
[2024-07-16 13:32] LABS: VBG PCO2 54.1 mmol/L (35-51)
[2024-07-16 13:32] LABS: Basophils % 0.2 % (0.1-2.0); Eosinophils % 0.5 % (0.1-12.0); Hematocrit 48.2 % (37.0-47.0); Hemoglobin 15.2 g/dL (12.2-16.2); Immature Granulocytes # 0.07 10^3uL; Immature Granulocytes % 0.8 %; Lymphocytes # 1.6 K/mm3 (0.7-4.5); Lymphocytes % 17.6 % (10-50); Mean Corpuscular HGB Conc 31.5 g/dL (31.8-35.4); Mean Corpuscular Hemoglobin 29.6 pg (27.0-31.2); Mean Corpuscular Volume 93.8 fl (81-99); Mean Platelet Volume 8.6 fl (7.4-10.4); Monocytes # 0.6 K/mm3 (0.1-1.0); Monocytes % 6.5 % (1.7-9.3); Neutrophils # 6.6 K/mm3 (1.8-7.8); Neutrophils % 74.4 % (37.0-80.0); Nucleated Red Blood Cells # 0 10^3/uL; Nucleated Red Blood Cells % 0 %; Platelet Count 167 K/mm3 (142-424); Red Blood Count 5.14 M/mm3 (4.20-5.40); Red Cell Distribution Width 14.6 % (11.5-17.5); Red Cell Distribution Width-SD 50.3 fL; White Blood Count 8.9 K/mm3 (4.8-10.8)
--- NOTE | 2024-07-16 13:35 | PC.NURSE ---
states pt is not septic although pt meets sepsis criteria. no blood cultures needed per MD Walker
[2024-07-16 13:39] LABS: Sodium 138 mmol/L (136-145)
[2024-07-16 13:41] LABS: Alanine Aminotransferase 26 U/L (12-78); Albumin Level 3.8 g/dl (3.5-5.0); Alkaline Phosphatase 85 U/L (38-126); Anion Gap 7.5 mEq/L (5-15); Aspartate Amino Transferase 30 U/L (14-36); Bilirubin,Total 0.9 mg/dl (0.2-1.3); Blood Urea Nitrogen 13 mg/dl (7-17); Calcium 9.3 mg/dl (8.4-10.2); Carbon Dioxide 31 mmol/L (22.0-30.0); Chloride 104 mmol/L (98-107); Creatinine Clearance Estimated 75 mL/min (50-200); Estimated Glomerular Filt Rate 52 ml/min (>60); GFR (African American) 63 ML/MIN (>60); Globulin 3.7 g/dL (1.3-3.2); Glucose 169 mg/dl (74-100); Potassium 4.5 mmoL/L (3.5-5.1); Total Protein,Serum 7.5 g/dl (6.3-8.2)
[2024-07-16] MEDS: IPRATROPIUM/ALBUTEROL 3 ML NEB 9 ML IH (13:52)
[2024-07-16] MEDS: METHYLPREDNISOLONE SOD SUCC 125MG VIAL 125 MG IV (13:52)
[2024-07-16 13:53] LABS: NT Pro Brain Natriuretic Pep. 883 pg/mL (0-125); Troponin I 0.02 ng/ml (0.00-0.034)
[2024-07-16 13:59] LABS: D-Dimer 0.79 ug/mL (0.0-0.5)
--- NOTE | 2024-07-16 14:05 | [facility].EDCP ---
Discharge Plan Disposition Patient Disposition: Home, Self-Care Prescriptions Prescriptions: New doxycycline hyclate 100 mg capsule 100 mg PO BID 10 Days Qty: 20 0RF prednisone 50 mg tablet 50 mg PO DAILY 5 Days Qty: 5 0RF Rx Instructions: Please begin 1 day after ED visit albuterol sulfate 90 mcg/actuation HFA aerosol inhaler 4 inh inhalation Q4H PRN (Reason: shortness of breath or wheezing) Qty: 8.5 0RF Rx Instructions: 4 puffs every 4 hours for 48 hours then as needed for shortness of breath or wheezing following No Action atorvastatin 80 mg tablet 80 mg PO DAILY Patient Comments: TAKE 1 TABLET BY MOUTH ONCE DAILY albuterol sulfate 90 mcg/actuation HFA aerosol inhaler 4 inh inhalation Q4H PRN (Reason: shortness of breath or wheezing) Qty: 8.5 5RF Rx Instructions: 4 puffs every 4 hours for 48 hours then as needed for shortness of breath or wheezing following Jardiance 10 mg tablet 10 mg PO DAILY Qty: 90 3RF aspirin [Adult Low Dose Aspirin] 81 mg tablet,delayed release (DR/EC) 81 mg PO QDAY Spiriva Respimat 2.5 mcg/actuation mist 2 puff INHALATION DAILY metformin 500 mg tablet 500 mg PO BID Qty: 60 0RF Rx Instructions: Pt. needs to follow up with primary care for future refills, as this is a diabetes medication isosorbide mononitrate 30 mg tablet extended release 24 hr See Rx Instructions .ROUTE .COMPLEX Qty: 90 3RF Dose Instruction: TAKE 1 TABLET BY MOUTH ONCE DAILY IN THE MORNING FOR HEART Rx Instructions: TAKE 1 TABLET BY MOUTH ONCE DAILY IN THE MORNING FOR HEART ezetimibe 10 mg tablet See Rx Instructions .ROUTE .COMPLEX Qty: 90 3RF Dose Instruction: Take 1 tablet by mouth once daily Rx Instructions: Take 1 tablet by mouth once daily lisinopril 40 mg tablet 40 mg PO DAILY Qty: 90 3RF carvedilol 25 mg tablet See Rx Instructions .ROUTE .COMPLEX Qty: 120 3RF Dose Instruction: TAKE 2 TABLETS BY MOUTH TWICE DAILY FOR HEART RHYTHM Rx Instructions: TAKE 2 TABLETS BY MOUTH TWICE DAILY FOR HEART RHYTHM clopidogrel 75 mg tablet See Rx Instructions .ROUTE .COMPLEX Qty: 90 3RF Dose Instruction: TAKE 1 TABLET BY MOUTH ONCE DAILY FOR ANTIPLATELET Rx Instructions: TAKE 1 TABLET BY MOUTH ONCE DAILY FOR ANTIPLATELET Referrals Follow up/Referrals: Elder Ballard MD [Primary Care Provider, Internal Medicine] - See instructions Activity Restrictions/Add. Instructions Additional Instructions/Restrictions: Your symptoms are consistent with an acute COPD exacerbation please follow-up with your domestic maid or with your primary care doctor as needed and return to the emergency room with any significant worsening of your symptoms. Clinical Impressions Clinical Impression: Acute exacerbation of chronic obstructive pulmonary disease Print Language Print Language: Cymraes Discharge ED Provider: Joleen Walker HPI <Joleen Walker DO - Last Filed: 07/16/24 15:05> General Chief Complaint: Shortness of Breath/Dyspnea Stated Complaint: Shortness and Tightness in Chest Time Seen by Provider: 07/16/24 13:12 Mode of Arrival: Ambulatory Source of Information: Patient Description of Symptoms (Recalled from ER Triage Doc. by RN): Pt presents for evaluation of shortness of breath and chest tightness x 2 days. Pt states she has a hx of multiple heart attacks and is on plavix. upon arrival to the room o2 saturation noted to be 82% on room air. Pt states she only wears o2 at night. O2 applied, o2 now 94% on room air. Provider notified. History of Present Illness HPI narrative: This patient is a 53-year-old female with extensive cardiovascular history including multiple MIs, CAD status post stenting, COPD, CHF status post AICD placement, tobacco dependence presenting to the emergency department for evaluation with concern for shortness of breath. She states that she started having congestion and cough with yellowish sputum production on Thursday, but symptoms have progressively worsened its then and she is developed chest tightness. She knows she wears oxygen at night but does not generally wear oxygen [id number] at home. She was hypoxic here in triage. No fevers, chest pain, abdominal pain, back pain, nausea, vomiting, changes in bowel movements, swelling, or other concerns noted. Related Data Home Medications ?Medication ?Instructions ?Recorded ?Confirmed aspirin 81 mg tablet,delayed 81 mg PO QDAY heart 03/09/17 01/26/24 release (Adult Low Dose Aspirin) tiotropium bromide 2.5 2 puff inhalation DAILY COPD 10/26/18 01/26/24 mcg/actuation mist for inhalation (Spiriva Respimat) atorvastatin 80 mg tablet 80 mg PO DAILY 01/26/24 01/26/24 Previous Rx's ?Medication ?Instructions ?Recorded metformin 500 mg tablet 500 mg PO BID Diabetes #60 tabs 10/21/17 isosorbide mononitrate 30 mg See Rx Instructions .Route 08/19/23 tablet,extended release 24 hr .COMPLEX #90 tabs ezetimibe 10 mg tablet See Rx Instructions .Route 09/11/23 .COMPLEX #90 tabs lisinopril 40 mg tablet 40 mg PO DAILY High blood pressure 10/05/23 #90 tabs carvedilol 25 mg tablet See Rx Instructions .Route 01/04/24 .COMPLEX #120 tabs albuterol sulfate 90 mcg/actuation 4 inh inhalation Q4H PRN shortness 01/26/24 aerosol inhaler of breath or wheezing #8.5 grams empagliflozin 10 mg tablet 10 mg PO DAILY #90 tabs 01/26/24 (Jardiance) clopidogrel 75 mg tablet See Rx Instructions .Route 05/16/24 .COMPLEX #90 tabs albuterol sulfate 90 mcg/actuation 4 inh inhalation Q4H PRN shortness 07/16/24 aerosol inhaler of breath or wheezing #8.5 grams doxycycline hyclate 100 mg capsule 100 mg PO BID 10 days #20 caps 07/16/24 prednisone 50 mg tablet 50 mg PO DAILY 5 days #5 tabs 07/16/24 Allergies Allergy/AdvReac Type Severity Reaction Status Date / Time Penicillins (PENICILLINS) Allergy Mild Verified 01/26/24 15:36 [facility] <Joleen Walker DO - Last Filed: 07/16/24 15:05> [facility] Disclaimer: The information contained in this section may have been updated after the patient was seen, as this information can be updated by other users. Medical History Renal artery stenosis Fatigue Angina, class III Abnormal result of cardiovascular function study LV dysfunction Social History Smoking Status: Never smoker second hand exposure: No alcohol intake: never substance use type: denies use current occupational status: unemployed Travel in the last 8 weeks?: Inside the [place] household members: spouse housing: house current occupation: [employer] current occupational exposures/hazards: No caffeine: Yes (6-10 cups day) Have you lived/traveled outside [place] in past 30 days?: No Contact w/someone who lives/traveled outside US past 30 days?: No Exposure to someone with infectious disease in past 14 days?: No Do you have a fever (greater than 100.4 F or 38 C)?: No Have you tested positive for COVID-19?: No Exposed to someone with COVID-19 in past 14 days?: No Do you have a sore throat?: No Do you have a cough?: No Do you have any weakness?: No Do you have any diarrhea?: No Are you experiencing any unusual bleeding?: No Do you have any muscle aches/pain?: No Do you have any abdominal pain?: No Are you experiencing loss of taste or smell?: No Other Medical History Have you received the Flu Vaccine for this season: No Have you received the Pneumonia Vaccine: No <Joleen Walker DO - Last Filed: 07/16/24 15:05> ROS Obtained: Yes All systems reviewed & no additional complaints except as documented Physical Exam <Joleen Walker DO - Last Filed: 07/16/24 15:05> General General appearance: alert and in no apparent distress Head Head exam: atraumatic and normocephalic Eye Eye exam: Present normal appearance, PERRL and EOMI ENT ENT exam: Present normal exam, normal oropharynx, mucous membranes moist and normal external ear exam Neck Neck exam: Present normal inspection, full ROM and trachea midline; Absent tenderness Chest Chest inspection: Present normal inspection and symmetric chest wall rise; Absent tenderness Respiratory Respiratory exam: Present wheezes, prolonged expiratory phase and other (Diminished bilateral breath sounds and wheezing); Absent respiratory distress, stridor or accessory muscle use Cardiovascular Cardiovascular exam: Present regular rate and normal rhythm Abdominal Exam Abdominal exam: Present soft; Absent distention, tenderness or guarding Extremities Exam Extremities exam: Present normal inspection, full ROM and normal capillary refill; Absent tenderness or edema Back Exam Back exam: Present normal inspection and full ROM; Absent tenderness Neurological Exam Neurological exam: Present alert, oriented X3, CN II-XII intact and normal gait; Absent motor sensory deficit Psychiatric Psychiatric exam: Present normal affect and normal mood Skin Skin exam: Present warm and dry HEART Score <Joleen Walker DO - Last Filed: 07/16/24 15:05> HEART Score HEART Score assessment performed?: Yes History (anamnesis): Slightly suspicious ECG: Normal Age: 45-65 years Risk factors: Atherosclerosis history Troponin: </= normal limit HEART Score: 3 <Sammy Hardin MD - Last Filed: 07/16/24 16:37> HEART Score HEART Score: 3 Critical Care <Joleen Walker DO - Last Filed: 07/16/24 15:05> Critical Care Time Critical Care Time: Yes Attestation: On 07/16/24, the high probability of a clinically significant, sudden or life threatening deterioration of the following system(s) required my full and direct attention, intervention and personal management. The time I documented below is in addition to time spent performing reported procedures but includes the following listed in this critical care notation. Total Time Total Critical Care Time: 35 Medical Decision Making <Joleen Walker DO - Last Filed: 07/16/24 15:05> [place] Inquiry Pt receiving controlled substance: No Vital Signs Vital Signs: 07/16/24 13:11 07/16/24 13:15 07/16/24 13:19 Temperature 98.3 F 98.3 F Temperature Source Oral Oral Pulse Rate 70 68 Pulse Rate [Right] 68 Respiratory Rate 14 18 18 Blood Pressure 124/66 124/66 Blood Pressure [Right Arm] 124/66 Blood Pressure Mean Blood Pressure Mean [Right Arm] 85 Blood Pressure Source Automatic Cuff Blood Pressure Source [Right Arm] Automatic Cuff Blood Pressure Position Supine Blood Pressure Position [Right Arm] Sitting 02 Sat by Pulse Oximetry 82 L 83 L 83 L Oxygen Delivery Method Room Air Room Air Room Air Oxygen Flow Rate (LPM) 07/16/24 13:22 07/16/24 13:31 07/16/24 13:37 Temperature Temperature Source Pulse Rate 70 69 69 Pulse Rate [Right] Respiratory Rate 22 22 21 Blood Pressure 92/62 L 83/53 L 77/45 L Blood Pressure [Right Arm] Blood Pressure Mean Blood Pressure Mean [Right Arm] Blood Pressure Source Blood Pressure Source [Right Arm] Blood Pressure Position Blood Pressure Position [Right Arm] 02 Sat by Pulse Oximetry 95 96 96 Oxygen Delivery Method Nasal Cannula Nasal Cannula Nasal Cannula Oxygen Flow Rate (LPM) 2 2 2 07/16/24 13:40 07/16/24 13:41 07/16/24 13:45 Temperature Temperature Source Pulse Rate 66 67 62 Pulse Rate [Right] Respiratory Rate 22 15 20 Blood Pressure 86/53 L 89/68 L 83/47 L Blood Pressure [Right Arm] Blood Pressure Mean Blood Pressure Mean [Right Arm] Blood Pressure Source Blood Pressure Source [Right Arm] Blood Pressure Position Blood Pressure Position [Right Arm] 02 Sat by Pulse Oximetry 95 94 L 96 Oxygen Delivery Method Nasal Cannula Nasal Cannula Nasal Cannula Oxygen Flow Rate (LPM) 2 2 2 07/16/24 13:50 07/16/24 13:55 07/16/24 14:00 Temperature Temperature Source Pulse Rate 68 67 70 Pulse Rate [Right] Respiratory Rate 21 17 19 Blood Pressure 85/44 L 92/48 L 91/61 L Blood Pressure [Right Arm] Blood Pressure Mean Blood Pressure Mean [Right Arm] Blood Pressure Source Blood Pressure Source [Right Arm] Blood Pressure Position Blood Pressure Position [Right Arm] 02 Sat by Pulse Oximetry 96 95 99 Oxygen Delivery Method Nasal Cannula Nasal Cannula Nasal Cannula Oxygen Flow Rate (LPM) 2 2 2 07/16/24 14:05 07/16/24 14:10 07/16/24 14:15 Temperature Temperature Source Pulse Rate 71 70 70 Pulse Rate [Right] Respiratory Rate 16 21 19 Blood Pressure 86/58 L 89/54 L 90/52 L Blood Pressure [Right Arm] Blood Pressure Mean Blood Pressure Mean [Right Arm] Blood Pressure Source Blood Pressure Source [Right Arm] Blood Pressure Position Blood Pressure Position [Right Arm] 02 Sat by Pulse Oximetry 99 98 98 Oxygen Delivery Method Nasal Cannula Nasal Cannula Nasal Cannula Oxygen Flow Rate (LPM) 2 2 2 07/16/24 14:20 07/16/24 14:25 07/16/24 14:30 Temperature Temperature Source Pulse Rate 68 69 70 Pulse Rate [Right] Respiratory Rate 21 20 22 Blood Pressure 81/53 L 85/50 L 94/51 L Blood Pressure [Right Arm] Blood Pressure Mean Blood Pressure Mean [Right Arm] Blood Pressure Source Blood Pressure Source [Right Arm] Blood Pressure Position Blood Pressure Position [Right Arm] 02 Sat by Pulse Oximetry 98 97 97 Oxygen Delivery Method Nasal Cannula Nasal Cannula Oxygen Flow Rate (LPM) 2 2 07/16/24 14:35 07/16/24 14:40 07/16/24 14:45 Temperature Temperature Source Pulse Rate 67 67 69 Pulse Rate [Right] Respiratory Rate 22 22 23 Blood Pressure 89/48 L 87/47 L 86/53 L Blood Pressure [Right Arm] Blood Pressure Mean Blood Pressure Mean [Right Arm] Blood Pressure Source Blood Pressure Source [Right Arm] Blood Pressure Position Blood Pressure Position [Right Arm] 02 Sat by Pulse Oximetry 96 96 97 Oxygen Delivery Method Oxygen Flow Rate (LPM) 07/16/24 14:50 07/16/24 14:55 07/16/24 15:00 Temperature Temperature Source Pulse Rate 68 68 68 Pulse Rate [Right] Respiratory Rate 23 23 22 Blood Pressure 91/49 L 96/50 L 96/51 L Blood Pressure [Right Arm] Blood Pressure Mean Blood Pressure Mean [Right Arm] Blood Pressure Source Blood Pressure Source [Right Arm] Blood Pressure Position Blood Pressure Position [Right Arm] 02 Sat by Pulse Oximetry 97 95 97 Oxygen Delivery Method Oxygen Flow Rate (LPM) 07/16/24 15:05 07/16/24 15:15 07/16/24 15:30 Temperature Temperature Source Pulse Rate 70 68 66 Pulse Rate [Right] Respiratory Rate 20 20 18 Blood Pressure 89/55 L 87/47 L 87/53 L Blood Pressure [Right Arm] Blood Pressure Mean 63 57 60 Blood Pressure Mean [Right Arm] Blood Pressure Source Blood Pressure Source [Right Arm] Blood Pressure Position Blood Pressure Position [Right Arm] 02 Sat by Pulse Oximetry 96 95 92 L Oxygen Delivery Method Nasal Cannula Nasal Cannula Oxygen Flow Rate (LPM) 2 2 07/16/24 15:51 Temperature Temperature Source Pulse Rate 56 L Pulse Rate [Right] Respiratory Rate 18 Blood Pressure 86/46 L Blood Pressure [Right Arm] Blood Pressure Mean 60 Blood Pressure Mean [Right Arm] Blood Pressure Source Blood Pressure Source [Right Arm] Blood Pressure Position Blood Pressure Position [Right Arm] 02 Sat by Pulse Oximetry 89 L Oxygen Delivery Method Nasal Cannula Oxygen Flow Rate (LPM) 2 Lab Data Labs: Lab Results 07/16/24 13:20: WBC 8.9, RBC 5.14, Hgb 15.2, Hct 48.2 H, MCV 93.8, MCH 29.6, MCHC 31.5 L, RDW 14.6, Plt Count 167, MPV 8.6, Neut % (Auto) 74.4, Lymph % (Auto) 17.6, Hall % (Auto) 6.5, Eos % (Auto) 0.5, Baso % (Auto) 0.2, Neut # (Auto) 6.6, Lymph # (Auto) 1.6, Hall # (Auto) 0.6, Eos # (Auto) 0.0, Baso # (Auto) 0.0, D-Dimer 0.79 H, Sodium 138, Potassium 4.5, Chloride 104, Carbon Dioxide 31 H, Anion Gap 7.5, BUN 13, Creatinine 1.10 H, Estimated Creat Clear 75, Estimated GFR 52 L, Est GFR ( Amer) 63, Glucose 169 H, Calcium 9.3, Total Bilirubin 0.9, AST 30, ALT 26, Alkaline Phosphatase 85, Troponin I 0.02, NT-Pro-B Natriuret Pep 883 H, Total Protein 7.5, Albumin 3.8, Globulin 3.7 H, Albumin/Globulin Ratio 1.0 L 07/16/24 13:24: SARS-CoV-2 (PCR) Not detected, Influenza A Untype (PCR) Not detected, Influenza Type B (PCR) Not detected 07/16/24 13:28: VBG pH 7.33, VBG pCO2 54.1 H, VBG pO2 42.8 H, VBG HCO3 28.0, VBG Total CO2 29.7 H, VBG O2 Saturation 77.8 H, VBG Base Excess 2.1, VBG Lactic Acid 1.8 07/16/24 13:20 07/16/24 13:20 Response Orders (Tests/Meds): ED MEDICATIONS Discontinued Medications Generic Name Dose Route Start Last Admin Trade Name Freq PRN Reason Stop Dose Admin Albuterol/Ipratropium 9 ml 07/16/24 13:35 07/16/24 13:52 Ipratropium/Albuterol 3 Ml Neb IH 07/16/24 13:36 9 ml ONCE ONE Administration Methylprednisolone Sodium Succinate 125 mg 07/16/24 13:35 07/16/24 13:52 Methylprednisolone Sod Succ 125mg Vial IV 07/16/24 13:36 125 mg ONCE ONE Administration ORDERS Category Date Time Status CXR --portable [XR chest portable] Stat Exams 07/16/24 13:18 Completed BNP [NT Pro Brain Natriuretic Pep.] Stat Lab 07/16/24 13:20 Completed Complete Blood Count Auto Diff Stat Lab 07/16/24 13:20 Completed Comprehensive Metabolic Panel Stat Lab 07/16/24 13:20 Completed D-Dimer Stat Lab 07/16/24 13:20 Completed Rapid PCR Covid and Flu A/B Stat Lab 07/16/24 13:24 Completed Trop I [Troponin I] Stat Lab 07/16/24 13:20 Completed Troponin I Q3H Lab 07/16/24 16:29 Received Troponin I Q3H Lab 07/16/24 19:30 Ordered VBG [Venous Blood Gas] Stat RT 07/16/24 13:28 Completed ECG Data Tracing #1: Attestation: I reviewed this ECG and interpreted as documented below: ECG Narrative: Sinus rhythm with a ventricular rate of [address]/T wave changes that are not sniffily changed from prior EKG. No acute STEMI noted. ECG initial impression date: 07/16/24 ECG initial impression time: 13:15 MDM Narrative Medical Decision Narrative: In summary, this patient is a 53-year-old female presenting to the Emergency Department for evaluation of cough, congestion, sputum production, and chest tightness. Differential diagnoses considered include but are not limited to pneumonia, COPD extubation, CHF exacerbation, respiratory failure, ACS, PE. Ruling out the most morbid conditions drove assessment. It should be noted patient's history includes extensive cardiovascular history and COPD as detailed in HPI which will likely are not at goal therapy. This complicates all aspects of care by increasing patient's risk for morbidity. I reviewed patient's past medical records and noted prior cardiology evaluations for maintenance of health in the setting of severe CHF with ICD in place. On exam, the patient is lying in bed in no acute distress. Does have significant diminished breath sounds bilaterally with wheezing noted as well. Vitals are reassuring on cardiac telemetry with exception of hypoxia on room air, for which she was placed on 2 L nasal cannula. She wears oxygen at night but not during the day. Workup included CBC, CMP, troponin, D-dimer, BNP, VBG, viral swab, chest x-ray, EKG. She was given DuoNebs x 3 as well as IV Solu-Medrol to assess for symptomatic improvement.. EKG obtained is reassuring. CBC is reassuring no significant leukocytosis or anemia. Chemistry is reassuring with kidney function is around her baseline. BNP is mildly elevated 883 without prior for comparison, though she does not look grossly volume overloaded. Chest x-ray pending at time of signout to oncoming provider, Dr. Hardin. And reassessment after nebulizer treatments <Sammy Hardin MD - Last Filed: 07/16/24 16:37> Vital Signs Vital Signs: 07/16/24 13:11 07/16/24 13:15 07/16/24 13:19 Temperature 98.3 F 98.3 F Temperature Source Oral Oral Pulse Rate 70 68 Pulse Rate [Right] 68 Respiratory Rate 14 18 18 Blood Pressure 124/66 124/66 Blood Pressure [Right Arm] 124/66 Blood Pressure Mean Blood Pressure Mean [Right Arm] 85 Blood Pressure Source Automatic Cuff Blood Pressure Source [Right Arm] Automatic Cuff Blood Pressure Position Supine Blood Pressure Position [Right Arm] Sitting 02 Sat by Pulse Oximetry 82 L 83 L 83 L Oxygen Delivery Method Room Air Room Air Room Air Oxygen Flow Rate (LPM) 07/16/24 13:22 07/16/24 13:31 07/16/24 13:37 Temperature Temperature Source Pulse Rate 70 69 69 Pulse Rate [Right] Respiratory Rate 22 22 21 Blood Pressure 92/62 L 83/53 L 77/45 L Blood Pressure [Right Arm] Blood Pressure Mean Blood Pressure Mean [Right Arm] Blood Pressure Source Blood Pressure Source [Right Arm] Blood Pressure Position Blood Pressure Position [Right Arm] 02 Sat by Pulse Oximetry 95 96 96 Oxygen Delivery Method Nasal Cannula Nasal Cannula Nasal Cannula Oxygen Flow Rate (LPM) 2 2 2 07/16/24 13:40 07/16/24 13:41 07/16/24 13:45 Temperature Temperature Source Pulse Rate 66 67 62 Pulse Rate [Right] Respiratory Rate 22 15 20 Blood Pressure 86/53 L 89/68 L 83/47 L Blood Pressure [Right Arm] Blood Pressure Mean Blood Pressure Mean [Right Arm] Blood Pressure Source Blood Pressure Source [Right Arm] Blood Pressure Position Blood Pressure Position [Right Arm] 02 Sat by Pulse Oximetry 95 94 L 96 Oxygen Delivery Method Nasal Cannula Nasal Cannula Nasal Cannula Oxygen Flow Rate (LPM) 2 2 2 07/16/24 13:50 07/16/24 13:55 07/16/24 14:00 Temperature Temperature Source Pulse Rate 68 67 70 Pulse Rate [Right] Respiratory Rate 21 17 19 Blood Pressure 85/44 L 92/48 L 91/61 L Blood Pressure [Right Arm] Blood Pressure Mean Blood Pressure Mean [Right Arm] Blood Pressure Source Blood Pressure Source [Right Arm] Blood Pressure Position Blood Pressure Position [Right Arm] 02 Sat by Pulse Oximetry 96 95 99 Oxygen Delivery Method Nasal Cannula Nasal Cannula Nasal Cannula Oxygen Flow Rate (LPM) 2 2 2 07/16/24 14:05 07/16/24 14:10 07/16/24 14:15 Temperature Temperature Source Pulse Rate 71 70 70 Pulse Rate [Right] Respiratory Rate 16 21 19 Blood Pressure 86/58 L 89/54 L 90/52 L Blood Pressure [Right Arm] Blood Pressure Mean Blood Pressure Mean [Right Arm] Blood Pressure Source Blood Pressure Source [Right Arm] Blood Pressure Position Blood Pressure Position [Right Arm] 02 Sat by Pulse Oximetry 99 98 98 Oxygen Delivery Method Nasal Cannula Nasal Cannula Nasal Cannula Oxygen Flow Rate (LPM) 2 2 2 07/16/24 14:20 07/16/24 14:25 07/16/24 14:30 Temperature Temperature Source Pulse Rate 68 69 70 Pulse Rate [Right] Respiratory Rate 21 20 22 Blood Pressure 81/53 L 85/50 L 94/51 L Blood Pressure [Right Arm] Blood Pressure Mean Blood Pressure Mean [Right Arm] Blood Pressure Source Blood Pressure Source [Right Arm] Blood Pressure Position Blood Pressure Position [Right Arm] 02 Sat by Pulse Oximetry 98 97 97 Oxygen Delivery Method Nasal Cannula Nasal Cannula Oxygen Flow Rate (LPM) 2 2 07/16/24 14:35 07/16/24 14:40 07/16/24 14:45 Temperature Temperature Source Pulse Rate 67 67 69 Pulse Rate [Right] Respiratory Rate 22 22 23 Blood Pressure 89/48 L 87/47 L 86/53 L Blood Pressure [Right Arm] Blood Pressure Mean Blood Pressure Mean [Right Arm] Blood Pressure Source Blood Pressure Source [Right Arm] Blood Pressure Position Blood Pressure Position [Right Arm] 02 Sat by Pulse Oximetry 96 96 97 Oxygen Delivery Method Oxygen Flow Rate (LPM) 07/16/24 14:50 07/16/24 14:55 07/16/24 15:00 Temperature Temperature Source Pulse Rate 68 68 68 Pulse Rate [Right] Respiratory Rate 23 23 22 Blood Pressure 91/49 L 96/50 L 96/51 L Blood Pressure [Right Arm] Blood Pressure Mean Blood Pressure Mean [Right Arm] Blood Pressure Source Blood Pressure Source [Right Arm] Blood Pressure Position Blood Pressure Position [Right Arm] 02 Sat by Pulse Oximetry 97 95 97 Oxygen Delivery Method Oxygen Flow Rate (LPM) 07/16/24 15:05 07/16/24 15:15 07/16/24 15:30 Temperature Temperature Source Pulse Rate 70 68 66 Pulse Rate [Right] Respiratory Rate 20 20 18 Blood Pressure 89/55 L 87/47 L 87/53 L Blood Pressure [Right Arm] Blood Pressure Mean 63 57 60 Blood Pressure Mean [Right Arm] Blood Pressure Source Blood Pressure Source [Right Arm] Blood Pressure Position Blood Pressure Position [Right Arm] 02 Sat by Pulse Oximetry 96 95 92 L Oxygen Delivery Method Nasal Cannula Nasal Cannula Oxygen Flow Rate (LPM) 2 2 07/16/24 15:51 Temperature Temperature Source Pulse Rate 56 L Pulse Rate [Right] Respiratory Rate 18 Blood Pressure 86/46 L Blood Pressure [Right Arm] Blood Pressure Mean 60 Blood Pressure Mean [Right Arm] Blood Pressure Source Blood Pressure Source [Right Arm] Blood Pressure Position Blood Pressure Position [Right Arm] 02 Sat by Pulse Oximetry 89 L Oxygen Delivery Method Nasal Cannula Oxygen Flow Rate (LPM) 2 Lab Data Labs: Lab Results 07/16/24 13:20: WBC 8.9, RBC 5.14, Hgb 15.2, Hct 48.2 H, MCV 93.8, MCH 29.6, MCHC 31.5 L, RDW 14.6, Plt Count 167, MPV 8.6, Neut % (Auto) 74.4, Lymph % (Auto) 17.6, Hall % (Auto) 6.5, Eos % (Auto) 0.5, Baso % (Auto) 0.2, Neut # (Auto) 6.6, Lymph # (Auto) 1.6, Hall # (Auto) 0.6, Eos # (Auto) 0.0, Baso # (Auto) 0.0, D-Dimer 0.79 H, Sodium 138, Potassium 4.5, Chloride 104, Carbon Dioxide 31 H, Anion Gap 7.5, BUN 13, Creatinine 1.10 H, Estimated Creat Clear 75, Estimated GFR 52 L, Est GFR ( Amer) 63, Glucose 169 H, Calcium 9.3, Total Bilirubin 0.9, AST 30, ALT 26, Alkaline Phosphatase 85, Troponin I 0.02, NT-Pro-B Natriuret Pep 883 H, Total Protein 7.5, Albumin 3.8, Globulin 3.7 H, Albumin/Globulin Ratio 1.0 L 07/16/24 13:24: SARS-CoV-2 (PCR) Not detected, Influenza A Untype (PCR) Not detected, Influenza Type B (PCR) Not detected 07/16/24 13:28: VBG pH 7.33, VBG pCO2 54.1 H, VBG pO2 42.8 H, VBG HCO3 28.0, VBG Total CO2 29.7 H, VBG O2 Saturation 77.8 H, VBG Base Excess 2.1, VBG Lactic Acid 1.8 Response Orders (Tests/Meds): ED MEDICATIONS Discontinued Medications Generic Name Dose Route Start Last Admin Trade Name Freq PRN Reason Stop Dose Admin Albuterol/Ipratropium 9 ml 07/16/24 13:35 07/16/24 13:52 Ipratropium/Albuterol 3 Ml Neb IH 07/16/24 13:36 9 ml ONCE ONE Administration Methylprednisolone Sodium Succinate 125 mg 07/16/24 13:35 07/16/24 13:52 Methylprednisolone Sod Succ 125mg Vial IV 07/16/24 13:36 125 mg ONCE ONE Administration ORDERS Category Date Time Status CXR --portable [XR chest portable] Stat Exams 07/16/24 13:18 Completed BNP [NT Pro Brain Natriuretic Pep.] Stat Lab 07/16/24 13:20 Completed Complete Blood Count Auto Diff Stat Lab 07/16/24 13:20 Completed Comprehensive Metabolic Panel Stat Lab 07/16/24 13:20 Completed D-Dimer Stat Lab 07/16/24 13:20 Completed Rapid PCR Covid and Flu A/B Stat Lab 07/16/24 13:24 Completed Trop I [Troponin I] Stat Lab 07/16/24 13:20 Completed Troponin I Q3H Lab 07/16/24 16:29 Received Troponin I Q3H Lab 07/16/24 19:30 Ordered VBG [Venous Blood Gas] Stat RT 07/16/24 13:28 Completed MDM Narrative Medical Decision Narrative: In summary, this patient is a 53-year-old female presenting to the Emergency Department for evaluation of cough, congestion, sputum production, and chest tightness. Differential diagnoses considered include but are not limited to pneumonia, COPD extubation, CHF exacerbation, respiratory failure, ACS, PE. Ruling out the most morbid conditions drove assessment. It should be noted patient's history includes extensive cardiovascular history and COPD as detailed in HPI which will likely are not at goal therapy. This complicates all aspects of care by increasing patient's risk for morbidity. I reviewed patient's past medical records and noted prior cardiology evaluations for maintenance of health in the setting of severe CHF with ICD in place. On exam, the patient is lying in bed in no acute distress. Does have significant diminished breath sounds bilaterally with wheezing noted as well. Vitals are reassuring on cardiac telemetry with exception of hypoxia on room air, for which she was placed on 2 L nasal cannula. She wears oxygen at night but not during the day. Workup included CBC, CMP, troponin, D-dimer, BNP, VBG, viral swab, chest x-ray, EKG. She was given DuoNebs x 3 as well as IV Solu-Medrol to assess for symptomatic improvement.. EKG obtained is reassuring. CBC is reassuring no significant leukocytosis or anemia. Chemistry is reassuring with kidney function is around her baseline. BNP is mildly elevated 883 without prior for comparison, though she does not look grossly volume overloaded. Chest x-ray pending at time of signout to oncoming provider, Dr. Hardin. And reassessment after nebulizer treatments Reassessment this is Dr. Hardin I took over from Dr. Walker chest x-ray was performed which I personally interpreted shows no definitive focal consolidation or significant pulmonary edema. On reassessment patient feeling much better. This is consistent with a COPD exacerbation we will send her home with additional steroids albuterol inhaler given the fact this is a moderate COPD exacerbation we will give her a course of Doxy.
--- NOTE | 2024-07-16 15:15 | PC.NURSE ---
notified of pts hypotension. no need orders at this time
[2024-07-16 17:23] LABS: Troponin I 0.02 ng/ml (0.00-0.034)
== END 2024-07-16 16:48 | disposition home or self-care (01) ==
PROVIDERS: Emergency Provider Emergency Medicine; PCP Family Medicine
DX: R07.89 Other chest pain (principal); J44.1 Chronic obstructive pulmonary disease with (acute) exacerbation; Z99.81 Dependence on supplemental oxygen
CPT/HCPCS: 71045; 80053; 82803; 83880; 84484; 85025; 85378; 87636; 93005; 96374; 99285; J2919

== ENCOUNTER 2024-07-19 16:23 | Observation (INO) | payer MEDICARE, SELFPAY ==
[2024-07-19] VITALS (10 sets, daily range): BP systolic 138–173; BP diastolic 74–105; PULSE 65–76; RESP 16–21; TEMP 36.6–36.9; O2SAT 88–97; BMI 35.9; BMI 35.7
--- NOTE | 2024-07-19 16:33 | ECG_ITS ---
APPROVED REPORT Exam: Resting ECG HR:81 bpm ECG Measurements Heart Rate 81 AXES LA 149 P 80 QRSd 98 QRS 28 QT 382 T 80 QTc 419 Conclusion SINUS RHYTHM POSSIBLE RIGHT ATRIAL ENLARGEMENT [0.25mV P-WAVE] POSSIBLE LEFT ATRIAL ENLARGEMENT [-0.1mV P-WAVE IN V1/V2] INDETERMINATE AXIS SEPTAL MYOCARDIAL INFARCTION , OF INDETERMINATE AGE [40+ ms Q WAVE IN V1/V2] LATERAL MYOCARDIAL INFARCTION , PROBABLY RECENT [40+ ms Q WAVE AND/OR ST/T ABNORMALITY IN I/aVL/V5/V6] UNCONFIRMED REPORT Electronically signed by : SHAE SPRAGUE, 07/21/2024 01:16:23
--- OUTSIDE RECORDS SUMMARY | 2024-07-19 16:33 | XMS_ITS | Clinical Summary ---
Author Organization [facility] Address [address] [place] [address] Care Team Providers Care Reporting Lead Name Role Phone Unavailable Primary Care Provider [...] any time in the past 12 m [facility], were you homeless or living in a alf (including now)? No 03/24/2024 Comments Unknown Sex and Gender Information Value Date Recorded Sex Assigned at Not on file Legal Sex Female 4:44 PM CDT Gender Identity Not on file Sexual Orientation Not on file Plan of Treatment Not on file
--- OUTSIDE RECORDS SUMMARY | 2024-07-19 16:33 | XMS_ITS | Referral Summary ---
Author Organization [facility] Address [address] [place] [address] Care Team Providers Care Doctor Of Audiology Name Role Phone Unavailable Primary Care Provider [...] any time in the past 12 m [facility], were you homeless or living in a [facility] (including now)? No 03/24/2024 Comments Unknown Sex and Gender Information Value Date Recorded Sex Assigned at Not on file Legal Sex Female 4:44 PM CDT Gender Identity Not on file Sexual Orientation Not on file Plan of Treatment Not on file
--- NOTE | 2024-07-19 16:38 | ED_ITS ---
Discharge Plan Disposition Patient Disposition: Admitted Condition: Fair Clinical Impressions Clinical Impression: Acute hypoxic respiratory failure, Acute exacerbation of chronic obstructive pulmonary disease Discharge ED Provider: Bob Yun Adult HPI General Chief complaint: Shortness of Breath/Dyspnea Stated complaint: SOA Time Seen by Provider: 07/19/24 16:37 History of Present Illness HPI narrative: Patient is a 53-year-old female with a history of COPD, hypertension, hyperlipidemia, CAD s/p PCI on aspirin and Plavix. She is presenting today due to complaints of shortness of breath. Per my review the APR, and patient endorsement, she was seen here on Thursday and treated for COPD exacerbation and sent home on steroid burst and doxycycline. She reports that she has not gotten any better and has gotten significantly worse, requiring more use of her oxygen at home which is usually just nightly but now requiring it all the time upwards of 4 L at home. She reports significant dyspnea on exertion, is endorsing some anterior chest pain worse when she coughs. Significant purulent cough. No fevers at home. Denying any abdominal pain vomiting or diarrhea. Is able to stay well-hydrated. Related Data Home Medications ?Medication ?Instructions ?Recorded ?Confirmed aspirin 81 mg tablet,delayed 81 mg PO QDAY heart 03/0907/19/24 release (Adult Low Dose Aspirin) tiotropium bromide 2.5 2 puff inhalation DAILY COPD 10/26/18 07/19/24 mcg/actuation mist for inhalation (Spiriva Respimat) atorvastatin 80 mg tablet 80 mg PO DAILY 01/26/2407/10 Previous Rx's ?Medication ?Instructions ?Recorded metformin 500 mg tablet 500 mg PO BID Diabetes #60 t abs 10/21/17 isosorbide mononitrate 30 mg See Rx Instructions .Rout e 08/19/23 tablet,extended release 24 hr .COMPLEX #90 tabs ezetimibe 10 mg tablet See Rx Instructions .Route 0 09/11/23 .COMPLEX #90 tabs lisinopril 40 mg tablet 40 mg PO DAILY High blood pr essure 10/05/23 #90 tabs carvedilol 25 mg tablet See Rx Instructions .Route 1 03/05/23 .COMPLEX #120 tabs empagliflozin 10 mg tablet 10 mg PO DAILY #90 tabs (Jardiance) clopidogrel 75 mg tablet See Rx Instructions .Route 0 05/16/24 .COMPLEX #90 tabs albuterol sulfate 90 mcg/actuation 4 inh inhalation Q4 H PRN shortness 07/16/24 aerosol inhaler of breath or wheezing #8.5 g yaquelin doxycycline hyclate 100 mg capsule 100 mg PO BID 10 da ys #20 caps 07/16/24 prednisone 50 mg tablet 50 mg PO DAILY 5 days #5 tab s 07/16/24 Allergies Allergy/AdvReac Type Severity Reaction Status Date / Time Penicillins (PENICILLINS) Allergy Mild Verified 07/19/24 15:43 [facility] Disclaimer: The information contained in this section may have been updated after the patient was seen, as this information can be updated by other users. Medical History Renal artery stenosis Fatigue Angina, class III Abnormal result of cardiovascular function study LV dysfunction Social History (Updated 07/19/24 @ 22:37 by Divina Bell RN) Smoking Status: Current every day smoker tobacco type: cigarettes packs per day: 1 second hand exposure: No alcohol intake: never substance use type: denies use current occupational status: unemployed Travel in the last 8 weeks?: Inside the [place] household members: spouse housing: house current occupation: [employer] current occupational exposures/hazards: No caffeine: Yes (6-10 cups day) Have you lived/traveled outside US in past 30 days?: No Contact w/someone who lives/traveled outside US past 30 days?: No Exposure to someone with infectious disease in past 14 days?: No Do you have a fever (greater than 100.4 F or 38 C)?: No Have you tested positive for COVID-19?: No Exposed to someone with COVID-19 in past 14 days?: No Do you have a sore throat?: No Do you have a cough?: No Do you have any weakness?: No Are you experiencing any nausea/vomitting?: No Do you have any diarrhea?: No Are you experiencing any unusual bleeding?: No Do you have any muscle aches/pain?: No Do you have any abdominal pain?: No Are you experiencing loss of taste or smell?: No Other Medical History Have you received the Flu Vaccine for this season: No Have you received the Pneumonia Vaccine: No ROS Obtained: Yes All systems reviewed & no additional complaints except as documented Physical Exam General General appearance: alert and in no apparent distress Head Head exam: atraumatic and normocephalic Eye Eye exam: Present PERRL and EOMI ENT ENT exam: Present normal oropharynx Neck Neck exam: Present full ROM and trachea midline Chest Chest inspection: Present symmetric chest wall rise Respiratory Respiratory exam: Present wheezes and prolonged expiratory phase; Absent stridor Cardiovascular Cardiovascular exam: Present regular rate and normal rhythm Abdominal Exam Abdominal exam: Present soft; Absent distention or tenderness Extremities Exam Extremities exam: Present full ROM Neurological Exam Neurological exam: Present alert and oriented X3 Psychiatric Psychiatric exam: Present normal mood Skin Skin exam: Present warm and dry Medical Decision Making Medical Records Screening: Per USPSTF and CDC recommendations, given the prevalence of disease in our region, it is our hospital?s policy to screen for HIV and viral Hepatitis for all patients aged 18 and over and those with ongoing risk factors. [place] Inquiry Pt receiving controlled substance: No Vital Signs: 07/19/24 16:32 07/19/24 16:38 07/19/24 17:00 Temperature 98.5 F Temperature Source Oral Pulse Rate 70 Pulse Rate [Right] 76 Respiratory Rate 18 20 Blood Pressure 141/79 H Blood Pressure [Right Arm] 173/105 H Blood Pressure Mean 97 Blood Pressure Mean [Right Arm] 127 Blood Pressure Source [Right Arm] 02 Sat by Pulse Oximetry 88 L 88 L 97 Oxygen Delivery Method Room Air Room Air Nasal Cannula Oxygen Flow Rate (LPM) 2 07/19/24 17:30 07/19/24 18:00 07/19/24 19:00 Temperature Temperature Source Pulse Rate 66 66 67 Pulse Rate [Right] Respiratory Rate 18 18 21 Blood Pressure 142/95 H 138/74 151/91 H Blood Pressure [Right Arm] Blood Pressure Mean 108 95 Blood Pressure Mean [Right Arm] Blood Pressure Source [Right Arm] 02 Sat by Pulse Oximetry 97 97 97 Oxygen Delivery Method Nasal Cannula Nasal Cannula Oxygen Flow Rate (LPM) 2 2 07/19/24 19:00 07/19/24 19:10 07/19/24 20:14 Temperature Temperature Source Pulse Rate 68 66 71 Pulse Rate [Right] Respiratory Rate Blood Pressure Blood Pressure [Right Arm] Blood Pressure Mean Blood Pressure Mean [Right Arm] Blood Pressure Source [Right Arm] 02 Sat by Pulse Oximetry Oxygen Delivery Method Oxygen Flow Rate (LPM) 07/19/24 21:33 07/19/24 21:34 07/19/24 22:00 Temperature 98.2 F 97.9 F Temperature Source Oral Pulse Rate 65 Pulse Rate [Right] 73 Respiratory Rate 18 16 Blood Pressure 157/92 H Blood Pressure [Right Arm] 157/92 H Blood Pressure Mean Blood Pressure Mean [Right Arm] 113 Blood Pressure Source [Right Arm] Automatic Cuff 02 Sat by Pulse Oximetry 96 Oxygen Delivery Method Nasal Cannula Nasal Cannula Nasal Cannula Oxygen Flow Rate (LPM) 3 3 3 Lab Data Lab Results 07/19/24 17:38: WBC 9.2, RBC 5.30, Hgb 15.8, Hct 50.5 H, MCV 95.3, MCH 29.8, M CHC 31.3 L, RDW 15.0, Plt Count 224 D, MPV 8.7, Neut % (Auto) 79.1, Lymph % (Auto) 15.9, Chaves % (Auto) 3.9, Eos % (Auto) 0.0 L, Baso % (Auto) 0.1, Neut # (Auto) 7.3, Lymph # (Auto) 1.5, Chaves # (Auto) 0.4, Eos # (Auto) 0.0, Baso # (Auto) 0.0, VBG pH 7.30 L, VBG pCO2 63.1 H, VBG pO2 42.7 H, VBG HCO3 30.1 H, VBG Total CO2 32.0 H, VBG O2 Saturation 76.5 H, VBG Base Excess 3.6 H, VBG Lactic Acid 1.7, Sodium 139, Potassium 4.6, Chloride 105, Carbon Dioxide 31 H, Anion Gap 7.6, BUN 26 H, Creatinine 0.80, Estimated Creat Clear 106, Estimated GFR 76, Est GFR ( Amer) 92, Glucose 110 H, Calcium 9.2, Magnesium 1.6, Total Bilirubin 0.6, AST 29, ALT 23, Alkaline Phosphatase 79, Troponin I 0.01, N T-Pro-B Natriuret Pep 341 H, Total Protein 7.7, Albumin 4.0, Globulin 3.7 H, Albumin/Globulin Ratio 1.1, Lipase 137 07/19/24 19:37: Chlamy pneumoniae PCR Not detected, Adenovirus (PCR) Not detected, B. pertussis DNA (PCR) Not detected, Coronavirus OC43 (PCR) Not detected, Coronavirus HKU1 (PCR) Not detected, Coronavirus 229E (PCR) Not detected, SARS-CoV-2 (PCR) Not detected 07/19/24 19:37: SARS-CoV-2 (PCR) Not detected, Coronavirus NL63 (PCR) Not detected, Human Metapneumovir PCR Not detected, Influenza A (H1) PCR Not detected, Influ A (H1N1/09) PCR Not detected, Influenza A (H3) PCR Not detected, Influenza Type A (PCR) Not detected, Influenza A Untype (PCR) Not detected, Influenza Type B (PCR) Not detected 07/19/24 19:37: Influenza Type B (PCR) Not detected, M. pneumoniae (PCR) Not detected, Parainfluenza 1 (PCR) Not detected, Parainfluenza 2 (PCR) Not detected, Parainfluenza 3 (PCR) Not detected, Parainfluenza 4 (PCR) Not detected, RSV (PCR) Not detected, Entero/Rhino (PCR) Not detected 07/19/24 20:03: Troponin I 0.01 07/19/24 17:38 07/19/24 17:38 Orders (Tests/Meds): ED MEDICATIONS Generic Name Dose Route Start Last Admin Trade Name Freq PRN Reason Stop Dose Admin Acetaminophen 650 mg 07/19/24 21:30 Acetaminophen 325mg Tab PO 08/18/24 21:29 Q4HP PRN Fever or Mild Pain (1-3) Albuterol/Ipratropium 3 ml 07/20/24 00:00 07/20/24 00:00 Ipratropium/Albuterol 3 Ml Neb IH 08/19/24 00:00 3 ml Q6RT ABIDA Administration Heparin Sodium (Porcine) 5,000 unit 07/20/24 09:00 Heparin Sodium 5,000 Unit/Ml Vial SUBCUT 08/19/24 08:59 TID ABIDA Ondansetron HCl 4 mg 07/19/24 21:30 Ondansetron 4mg/2ml Vial IV 08/18/24 21:29 Q8HP PRN Nausea Discontinued Medications Generic Name Dose Route Start Last Admin Trade Name Freq PRN Reason Stop Dose Admin Acetaminophen 1,000 mg 07/19/24 16:48 07/19/24 17:24 Acetaminophen 500mg Tab PO 07/19/24 16:49 1,000 mg ONCE ONE Administration Albuterol/Ipratropium 9 ml 07/19/24 16:48 07/19/24 18:26 Ipratropium/Albuterol 3 Ml Neb IH 07/19/24 16:49 9 ml ONCE ONE Administration Magnesium Sulfate 2 gm in 50 mls @ 50 mls/hr 07/19/24 16:48 07/19/24 17:24 Magnesium Sulfate 2gm/50ml Premix IV 07/19/24 17:47 50 mls/hr ONCE ONE Administration Iopamidol 70 ml 07/19/24 18:35 07/19/24 18:43 Iopamidol-370 (76%);100ml Bottle IV 07/19/24 18:36 70 ml ONCE ONE Administration Methylprednisolone Sodium Succinate 125 mg 07/19/24 16:48 07/19/24 17:24 Methylprednisolone Sod Succ 125mg Vial IV 07/19/24 16:49 125 mg ONCE ONE Administration Sodium Chloride 10 ml 07/19/24 18:35 07/19/24 18:43 Sodium Chloride 0.9% 10ml Syr (Rad Only) IV 07/19/24 18:36 10 ml ONCE ONE Administration Sodium Chloride 50 ml 07/19/24 18:35 07/19/24 18:43 0.9 % Sodium Chloride 50 Ml Vial IV 07/19/24 18:36 50 ml ONCE ONE Administration ORDERS Category Date Time Status CTA Chest [CT angio chest PE protocol] Stat Cat Scan 07/19/24 16:49 Completed BNP [NT Pro Brain Natriuretic Pep.] Stat Lab 07/19/24 17:38 Completed CBC w/Auto Diff [Complete Blood Count Auto Diff] Stat Lab 07/19/24 17:38 Completed CMP [Comprehensive Metabolic Panel] Stat Lab 07/19/24 17:38 Completed Comprehensive Metabolic Panel AMLAB Lab 07/20/24 06:00 Ordered Full Resp Panel w/COVID ([facility]) Routine Lab 07/19/24 19:37 Completed Lipase Stat Lab 07/19/24 17:38 Completed MAG [Magnesium] Stat Lab 07/19/24 17:38 Completed Rapid PCR Covid and Flu A/B Stat Lab 07/19/24 19:37 Completed Trop I [Troponin I] Stat Lab 07/19/24 17:38 Completed Troponin I Q3H Lab 07/19/24 20:03 Completed Troponin I Q3H Lab 07/19/24 22:57 Completed VBG [Venous Blood Gas] Stat RT 07/19/24 17:38 Completed ECG Data Tracing #1: I reviewed this ECG and interpreted as documented below: Normal sinus rhythm with borderline ST elevation in anterior precordial leads, but not significantly changed when compared with prior on my review of EMR Medical Decision Narrative: In summary, this 53-year-old female presents to the emergency department today with shortness of. On initial evaluation patient is afebrile, saturating 82% on room air, requiring 3 L nasal cannula oxygen maintain oxygen saturation above 90%. Otherwise is stable, mildly hypertensive. She is warm and well-perfused with full pulses in all extremities. No lower extremity edema. Heart is regular rate and rhythm and lung sounds have a prolonged expiratory phase and very restricted breathing with not good air movement. Wheezing in all lung ziegler. Will proceed with DuoNebs, magnesium IV, steroids and short order. Differential diagnosis includes but is not limited to CP exacerbation, pneumonia, PE, ACS, MD. Based on these concerns, I ordered CBC CMP troponin, CTA PE, VBG. I reviewed prior records including ED note from Thursday which demonstrates improvement after steroids and DuoNebs and sent home on doxycycline and prednisone burst. Patient received DuoNebs x 3, 1 hour of continuous albuterol, magnesium IV, Tylenol for treatment. Labs personally reviewed demonstrate No leukocytosis no evidence of anemia, VBG with no acidosis mild hypercarbia compensated respiratory acidosis. No significant electrolyte derangement, no evidence of GABRIELA glucose within normal limits. Troponins flat, low suspicion for ACS. BNP slightly elevated 341, but improved when compared with prior pulmonary edema. Respiratory pathogen panel negative. . CT imaging personally interpreted demonstrate no pulmonary embolism. Confirms final read. No consolidative pneumonia. On reassessment, patient reports improvement in her symptoms, however after ambulation trial and returned to her bed, she remains hypoxic to 86% on room air. Conifer reasonable to admit patient for acute Evoxac respiratory failure setting of COPD exacerbation. Interactive discussion with the hospitalist Dr. James who agrees to admit the patient for further workup and further management, transferred in hemodynamically stable condition on 2 L nasal cannula. New oxygen requirement.. Of note, social determinants of health include poor health literacy, medication noncompliance. Critical Care Critical Care Time Critical Care Time: Yes (Frequent reassessments, IV magnesium, continuous albuterol) Attestation: On 07/19/24, the high probability of a clinically significant, sudden or life threatening deterioration of the following system(s) required my full and direct attention, intervention and personal management. The time I documented below is in addition to time spent performing reported procedures but includes the following listed in this critical care notation. Total Time Total Critical Care Time: 45
--- NOTE | 2024-07-19 16:49 | CT_ITS ---
PROCEDURE INFORMATION: Exam: CTA Chest With Contrast Exam date and time: 07/19/2024 6:36 PM Age: 53 years old Clinical indication: Shortness of breath; Additional info: Tachy, cp, SOB, hypoxic TECHNIQUE: Imaging protocol: Computed tomographic angiography of the chest with contrast. Exam focused on the arteries. 3D rendering (Not supervised by radiologist): MIP and/or 3D reconstructed images were created by the technologist. Radiation optimization: All CT scans at this facility use at least one of these dose optimization techniques: automated exposure control; mA and/or kV adjustment per patient size (includes targeted exams where dose is matched to clinical indication); or iterative reconstruction. Contrast material: ISOVUE; Contrast volume: 70 ml; Contrast route: INTRAVENOUS (IV); COMPARISON: CR (CHEST, CXR AP LANDSCAPE) 07/16/2024 1:46 PM FINDINGS: Pulmonary arteries: No central or segmental pulmonary arterial intraluminal filling defects identified. Aorta: Unremarkable. No aortic aneurysm. No aortic dissection. Lungs: Unremarkable. No consolidation. No masses. Pleural spaces: Unremarkable. No pneumothorax. No pleural effusion. Heart: Unremarkable. No cardiomegaly. No pericardial effusion. Lymph nodes: Unremarkable. No enlarged lymph nodes. Bones/joints: Unremarkable. No acute fracture. Soft tissues: Unremarkable. IMPRESSION: No acute findings identified. No central or segmental pulmonary arterial embolism identified.
[2024-07-19] MEDS: MAGNESIUM SULFATE IN WATER 2 GM/50 ML PIGGYBACK IV (17:24)
[2024-07-19] MEDS: ACETAMINOPHEN 500MG TAB 1000 MG PO (17:24)
[2024-07-19] MEDS: METHYLPREDNISOLONE SOD SUCC 125MG VIAL 125 MG IV (17:24)
[2024-07-19 17:43] LABS: Lactate Venous 1.7 mmol/L (0.4-2.0); VBG Base Excess 3.6 mmol/L (-2.4-2.3); VBG HCO3 30.1 mmol/L (23-30); VBG Oxygen Saturation 76.5 % (50-70); VBG PO2 42.7 mmol/L (28-40)
--- NOTE | 2024-07-19 17:47 | PC.NURSE ---
PT refused resp panel. PT stated she just had one thursday when she was here. This nurse educated her r/t how +/- can change. PT still refused.
[2024-07-19 17:52] LABS: Basophils % 0.1 % (0.1-2.0); Hematocrit 50.5 % (37.0-47.0); Hemoglobin 15.8 g/dL (12.2-16.2); Immature Granulocytes # 0.09 10^3uL; Lymphocytes # 1.5 K/mm3 (0.7-4.5); Lymphocytes % 15.9 % (10-50); Mean Corpuscular HGB Conc 31.3 g/dL (31.8-35.4); Mean Corpuscular Hemoglobin 29.8 pg (27.0-31.2); Mean Corpuscular Volume 95.3 fl (81-99); Mean Platelet Volume 8.7 fl (7.4-10.4); Monocytes # 0.4 K/mm3 (0.1-1.0); Monocytes % 3.9 % (1.7-9.3); Neutrophils # 7.3 K/mm3 (1.8-7.8); Neutrophils % 79.1 % (37.0-80.0); Nucleated Red Blood Cells # 0 10^3/uL; Nucleated Red Blood Cells % 0 %; Platelet Count 224 K/mm3 (142-424); Red Cell Distribution Width-SD 53.1 fL; White Blood Count 9.2 K/mm3 (4.8-10.8)
[2024-07-19 18:09] LABS: Alanine Aminotransferase 23 U/L (12-78); Albumin/Globulin Ratio 1.1 (1.1-1.8); Alkaline Phosphatase 79 U/L (38-126); Anion Gap 7.6 mEq/L (5-15); Aspartate Amino Transferase 29 U/L (14-36); Bilirubin,Total 0.6 mg/dl (0.2-1.3); Blood Urea Nitrogen 26 mg/dl (7-17); Calcium 9.2 mg/dl (8.4-10.2); Carbon Dioxide 31 mmol/L (22.0-30.0); Chloride 105 mmol/L (98-107); Creatinine Clearance Estimated 106 mL/min (50-200); Estimated Glomerular Filt Rate 76 ml/min (>60); GFR (African American) 92 ML/MIN (>60); Globulin 3.7 g/dL (1.3-3.2); Glucose 110 mg/dl (74-100); Lipase 137 U/L (23-300); Magnesium 1.6 mg/dl (1.6-2.3); Potassium 4.6 mmoL/L (3.5-5.1); Sodium 139 mmol/L (136-145); Total Protein,Serum 7.7 g/dl (6.3-8.2)
[2024-07-19 18:15] LABS: VBG PCO2 63.1 mmol/L (35-51)
[2024-07-19 18:20] LABS: NT Pro Brain Natriuretic Pep. 341 pg/mL (0-125)
[2024-07-19 18:22] LABS: Troponin I 0.01 ng/ml (0.00-0.034)
[2024-07-19] MEDS: IPRATROPIUM/ALBUTEROL 3 ML NEB 9 ML IH (18:26)
[2024-07-19] MEDS: IOPAMIDOL-370 (76%);100ML BOTTLE 70 ML IV (18:43)
[2024-07-19] MEDS: SODIUM CHLORIDE 0.9% 10ML SYR (RAD ONLY) 10 ML IV (18:43)
[2024-07-19] MEDS: 0.9 % SODIUM CHLORIDE 50 ML VIAL IV (18:43)
[2024-07-19 19:43] LABS: Adenovirus,PCR Not Detected (NotDetected); Bordetella Pertussis Not Detected (NotDetected); Chlamydophila Pneumoniae, PCR Not Detected (NotDetected); Coronavirus 19, PCR Not Detected (NotDetected); Coronavirus 229E Not Detected (NotDetected); Coronavirus NL63 Not Detected (NotDetected); Coronavirus OC43 Not Detected (NotDetected); Coronovirus HKU1,PCR Not Detected (NotDetected); Human Metapneumovirus Not Detected (NotDetected); Influenza A, PCR Not Detected (NotDetected); Influenza AH1, 2009 Not Detected (NotDetected); Influenza AH1, PCR Not Detected (NotDetected); Influenza AH3,PCR Not Detected (NotDetected); Influenza B, PCR Not Detected (NotDetected); Mycoplasma Pneumoniae, PCR Not Detected (NotDetected); Parainfluenza 1, PCR Not Detected (NotDetected); Parainfluenza 2, PCR Not Detected (NotDetected); Parainfluenza 3, PCR Not Detected (NotDetected); Parainfluenza 4, PCR Not Detected (NotDetected); Respiratory Syncytial Virus Not Detected (NotDetected); Rhinovirus/Enterovirus Not Detected (NotDetected)
--- NOTE | 2024-07-19 20:41 | PC.NURSE ---
ordered walking spO2 pt started sitting on her bed at heart rate of 69 and spO2 of 92% room air. after walking all the way around the nurses station and back to her room her heart rate was 72 and spO2 was 88% on room air.
[2024-07-19 20:49] LABS: Troponin I 0.01 ng/ml (0.00-0.034)
--- NOTE | 2024-07-19 21:53 | PC.NURSE ---
Patient arrived to floor via wheelchair from ED at 21:49.
--- NOTE | 2024-07-19 22:21 | P.HP_ITS ---
History of Present Illness *Admission Date: 07/19/24 *Reason for visit:: SOB *History of present illness: Patient is a 53-year-old female with past medical history of COPD, active tobacco use, hypertension hyperlipidemia CAD who presents to the hospital due to shortness of breath and chest pain. According to patient she has been having cough that is productive, shortness of breath especially with exertion, she is on oxygen at home at night and she has been requiring more oxygen than her baseline. According to patient her chest pain is associated with her cough. Denied chest pain associated with exertion. Denied fevers chills diarrhea constipation dysuria. [facility] Disclaimer: The information contained in this section may have been updated after the patient was seen, as this information can be updated by other users. Medical History Renal artery stenosis Fatigue Angina, class III Abnormal result of cardiovascular function study LV dysfunction Social History (Updated 07/19/24 @ 22:37 by Divina Bell RN) Smoking Status: Current every day smoker tobacco type: cigarettes packs per day: 1 second hand exposure: No alcohol intake: never substance use type: denies use current occupational status: unemployed Travel in the last 8 weeks?: Inside the [place] household members: spouse housing: house current occupation: [employer] current occupational exposures/hazards: No caffeine: Yes (6-10 cups day) Have you lived/traveled outside US in past 30 days?: No Contact w/someone who lives/traveled outside US past 30 days?: No Exposure to someone with infectious disease in past 14 days?: No Do you have a fever (greater than 100.4 F or 38 C)?: No Have you tested positive for COVID-19?: No Exposed to someone with COVID-19 in past 14 days?: No Do you have a sore throat?: No Do you have a cough?: No Do you have any weakness?: No Are you experiencing any nausea/vomitting?: No Do you have any diarrhea?: No Are you experiencing any unusual bleeding?: No Do you have any muscle aches/pain?: No Do you have any abdominal pain?: No Are you experiencing loss of taste or smell?: No Other Medical History Have you received the Flu Vaccine for this season: No Have you received the Pneumonia Vaccine: No Review of Systems Review of Systems Review of systems:: pertinent systems reviewed and negative unless documented below Meds Home Medications and Allergies Home Medications ?Medication ?Instructions ?Recorded ?Confirmed ?Type aspirin 81 mg tablet,delayed 81 mg PO QDAY heart 03/0907/19/24 History release (Adult Low Dose Aspirin) metformin 500 mg tablet 500 mg PO BID Diabetes #60 t abs 10/21/17 07/19/24 Rx tiotropium bromide 2.5 2 puff inhalation DAILY COPD 10/26/18 07/19/24 History mcg/actuation mist for inhalation (Spiriva Respimat) isosorbide mononitrate 30 mg See Rx Instructions .Rout e 08/19/23 07/19/24 Rx tablet,extended release 24 hr .COMPLEX #90 tabs ezetimibe 10 mg tablet See Rx Instructions .Route 0 09/11/23 07/19/24 Rx .COMPLEX #90 tabs lisinopril 40 mg tablet 40 mg PO DAILY High blood pr essure 10/05/23 07/19/24 Rx #90 tabs carvedilol 25 mg tablet See Rx Instructions .Route 1 03/05/23 07/19/24 Rx .COMPLEX #120 tabs atorvastatin 80 mg tablet 80 mg PO DAILY 01/26/2407/10 History empagliflozin 10 mg tablet 10 mg PO DAILY #90 tabs 07/19/24 Rx (Jardiance) clopidogrel 75 mg tablet See Rx Instructions .Route 0 05/16/24 07/19/24 Rx .COMPLEX #90 tabs albuterol sulfate 90 mcg/actuation 4 inh inhalation Q4 H PRN shortness 07/16/24 07/19/24 Rx aerosol inhaler of breath or wheezing #8.5 g yaquelin doxycycline hyclate 100 mg capsule 100 mg PO BID 10 da ys #20 caps 07/16/24 07/19/24 Rx prednisone 50 mg tablet 50 mg PO DAILY 5 days #5 tab s 07/16/24 07/19/24 Rx New Prescriptions to Start Prescriptions: Allergies Allergy/AdvReac Type Severity Reaction Status Date / Time Penicillins (PENICILLINS) Allergy Mild Verified 07/19/24 15:43 Exam Data for Last 24 hours Vital signs and Labs for Last 24 Hours: Temp Pulse Resp BP Pulse Ox O2 Del Method O2 Flow Rate 98.2 F 65 18 157/92 H 97 Nasal Cannula 3 07/19/24 21:34 07/19/24 21:34 07/19/24 21:34 07/19/24 21:34 07/19/24 19:00 07/19/24 21:34 07/19/24 21:34 Laboratory Results - last 24 hr 07/19/24 17:38: WBC 9.2, RBC 5.30, Hgb 15.8, Hct 50.5 H, MCV 95.3, MCH 29.8, MCHC 31.3 L, RDW 15.0, Plt Count 224 D, MPV 8.7, Neut % (Auto) 79.1, Lymph % (Auto) 15.9, [place] % (Auto) 3.9, Eos % (Auto) 0.0 L, Baso % (Auto) 0.1, Neut # (Auto) 7.3, Lymph # (Auto) 1.5, [place] # (Auto) 0.4, Eos # (Auto) 0.0, Baso # (Auto) 0.0, VBG pH 7.30 L, VBG pCO2 63.1 H, VBG pO2 42.7 H, VBG HCO3 30.1 H, VBG Total CO2 32.0 H, VBG O2 Saturation 76.5 H, VBG Base Excess 3.6 H, VBG Lactic Acid 1.7, Sodium 139, Potassium 4.6, Chloride 105, Carbon Dioxide 31 H, Anion Gap 7.6, BUN 26 H, Creatinine 0.80, Estimated Creat Clear 106, Estimated GFR 76, Est GFR ( Amer) 92, Glucose 110 H, Calcium 9.2, Magnesium 1.6, Total Bilirubin 0.6, AST 29, ALT 23, Alkaline Phosphatase 79, Troponin I 0.01, NT-Pro-B Natriuret Pep 341 H, Total Protein 7.7, Albumin 4.0, Globulin 3.7 H, Albumin/Globulin Ratio 1.1, Lipase 137 07/19/24 19:37: Chlamy pneumoniae PCR Not detected, Adenovirus (PCR) Not detec johnna, B. pertussis DNA (PCR) Not detected, Coronavirus OC43 (PCR) Not detected, Coronavirus HKU1 (PCR) Not detected, Coronavirus 229E (PCR) Not detected, SARS-CoV-2 (PCR) Not detected 07/19/24 19:37: SARS-CoV-2 (PCR) Not detected, Coronavirus NL63 (PCR) Not detected, Human Metapneumovir PCR Not detected, Influenza A (H1) PCR Not detected, Influ A (H1N1/09) PCR Not detected, Influenza A (H3) PCR Not detected, Influenza Type A (PCR) Not detected, Influenza A Untype (PCR) Not detected, Influenza Type B (PCR) Not detected 07/19/24 19:37: Influenza Type B (PCR) Not detected, M. pneumoniae (PCR) Not detected, Parainfluenza 1 (PCR) Not detected, Parainfluenza 2 (PCR) Not detected, Parainfluenza 3 (PCR) Not detected, Parainfluenza 4 (PCR) Not detected, RSV (PCR) Not detected, Entero/Rhino (PCR) Not detected 07/19/24 20:03: Troponin I 0.01 I & O for Last 24 hours: Intake & Output 07/16/24 07/17/24 07/18/24 07/19/24 23:59 23:59 23:59 23:59 Weight 80.739 kg Constitutional Constitutional: no acute distress *Routine HEENT Exam Head: Present normocephalic Eye: Present EOMI and PERRL ENT: Present mucous membranes moist *Routine Neck Exam Neck: Present supple; Absent lymphadenopathy *Routine Respiratory Exam Respiratory: Present decreased breath sounds Comments: decreased breathing sounds b/l *Routine Cardiovascular Exam Cardiovascular: Present RRR *Routine Abdominal Exam Abdominal: Present soft and normoactive bowel sounds; Absent tenderness *Routine Rectal Exam Rectal:: deferred *Routine Genitalia Exam Genitalia:: deferred *Routine Extremities Exam Extremities: Absent cyanosis, clubbing or edema *Routine Skin Exam Skin: Present warm; Absent rash *Routine Neurological Exam Neurological: Present alert and oriented X3 Assessment and Plan *Assessment and plan (1) Acute exacerbation of chronic obstructive pulmonary disease: Status: Acute Category: Medical Code(s): J44.1 - Chronic obstructive pulmonary disease with (acute) exacerbation (2) Acute hypoxic respiratory failure: Status: Acute Category: Medical Code(s): J96.01 - Acute respiratory failure with hypoxia (3) Acute exacerbation of chronic obstructive pulmonary disease: Status: Acute Category: Medical Code(s): J44.1 - Chronic obstructive pulmonary disease with (acute) exacerbation (4) Fall: Status: Acute Qualifiers: Encounter type: initial encounter Qualified Code(s): W19.XXXA - Unspecified fall, initial encounter Category: Medical Code(s): W19.XXXA - Unspecified fall, initial encounter (5) Low back pain: Status: Acute Category: Medical Code(s): M54.50 - Low back pain, unspecified Plan Patient is a 53-year-old female with past medical history of COPD, active tobacco use, hypertension hyperlipidemia CAD who presents to the hospital due to shortness of breath and chest pain. According to patient she has been having cough that is productive, shortness of breath especially with exertion, she is on oxygen at home at night and she has been requiring more oxygen than her baseline. According to patient her chest pain is associated with her cough. Denied chest pain associated with exertion. Denied fevers chills diarrhea constipation dysuria. Assessment and plan Shortness of breath suspect due to COPD exacerbation Acute hypoxic respiratory failure Ordered DuoNeb Prednisone Doxycycline CTA chest reviewed, negative for PE. Chronic medical conditions Tobacco use Order nicotine patch Hypertension Chronic systolic CHF Pulmonary hypertension Diabetes mellitus-order insulin sliding scale Resume home aspirin, atorvastatin, Coreg, Imdur, lisinopril DVT prophylaxis-heparin
[2024-07-19 23:26] LABS: Troponin I < 0.01 ng/ml (0.00-0.034)
[2024-07-20] VITALS (7 sets, daily range): BP systolic 128–166; BP diastolic 83–107; PULSE 62–82; RESP 18; TEMP 36.4–36.7; O2SAT 93–100; BMI 35.7
[2024-07-20] MEDS: IPRATROPIUM/ALBUTEROL 3 ML NEB IH ×2 (06:22)
[2024-07-20 07:12] LABS: Albumin Level 3.9 g/dl (3.5-5.0); Chloride 107 mmol/L (98-107); Potassium 4.4 mmoL/L (3.5-5.1); Sodium 142 mmol/L (136-145)
[2024-07-20 07:14] LABS: Blood Urea Nitrogen 24 mg/dl (7-17); Creatinine Clearance Estimated 106 mL/min (50-200); Estimated Glomerular Filt Rate 76 ml/min (>60); GFR (African American) 92 ML/MIN (>60)
[2024-07-20 07:15] LABS: Alanine Aminotransferase 23 U/L (12-78); Albumin/Globulin Ratio 1.1 (1.1-1.8); Alkaline Phosphatase 88 U/L (38-126); Anion Gap 6.4 mEq/L (5-15); Aspartate Amino Transferase 24 U/L (14-36); Bilirubin,Total 0.2 mg/dl (0.2-1.3); Calcium 9.6 mg/dl (8.4-10.2); Carbon Dioxide 33 mmol/L (22.0-30.0); Globulin 3.7 g/dL (1.3-3.2); Glucose 160 mg/dl (74-100); Total Protein,Serum 7.6 g/dl (6.3-8.2)
--- NOTE | 2024-07-20 09:32 | EXP.PULM.CON ---
History of Present Illness History of present illness: Ms. Jones is a 53-year-old female current smoker greater than [id number] smoking history with reported history of COPD tobacco abuse hypertension dyslipidemia CAD presented today with worsening respite distress chest pain and pulmonary was called for further evaluation and management. [facility] Disclaimer: The information contained in this section may have been updated after the patient was seen, as this information can be updated by other users. Medical History Renal artery stenosis Fatigue Angina, class III Abnormal result of cardiovascular function study LV dysfunction Social History (Updated 07/19/24 @ 22:37 by Divina Bell RN) Smoking Status: Current every day smoker tobacco type: cigarettes packs per day: 1 second hand exposure: No alcohol intake: never substance use type: denies use current occupational status: unemployed Travel in the last 8 weeks?: Inside the [place] household members: spouse housing: house current occupation: [employer] current occupational exposures/hazards: No caffeine: Yes (6-10 cups day) Have you lived/traveled outside US in past 30 days?: No Contact w/someone who lives/traveled outside US past 30 days?: No Exposure to someone with infectious disease in past 14 days?: No Do you have a fever (greater than 100.4 F or 38 C)?: No Have you tested positive for COVID-19?: No Exposed to someone with COVID-19 in past 14 days?: No Do you have a sore throat?: No Do you have a cough?: No Do you have any weakness?: No Are you experiencing any nausea/vomitting?: No Do you have any diarrhea?: No Are you experiencing any unusual bleeding?: No Do you have any muscle aches/pain?: No Do you have any abdominal pain?: No Are you experiencing loss of taste or smell?: No Review of Systems Constitutional Constitutional: Reports anorexia, Reports body ache(s) and Reports fatigue Eyes Eyes: Denies eye discharge, Denies dry eyes, Denies irritation and Denies itchy eyes ENT Ears, Nose, Mouth, and Throat: Denies epistaxis, Denies facial pain, Denies lip swelling and Denies throat swelling *Cardiovascular Cardiovascular: Reports dyspnea and Reports dyspnea on exertion *Respiratory Respiratory: Denies change in phlegm color, Reports chest congestion, Reports cough, Reports dyspnea, Reports dyspnea on exertion, Reports excessive phlegm production, Denies hemoptysis, Denies pain on inspiration, Denies pain with cough and Reports wheezing *Gastrointestinal Gastrointestinal: Denies abdominal pain, Denies belching and Denies cramping *Musculoskeletal Musculoskeletal: Reports back pain, Reports myalgias and Reports other (No small joint swelling or Pain) Psychiatric Psychiatric: Denies homicidal ideation and Denies suicidal ideation Endocrine Endocrine: Reports fatigue and Denies heat intolerance Hematologic/Lymphatic Hematologic/Lymphatic: Denies easy bleeding and Denies lymphadenopathy Allergic/Immunologic Allergic/Immunologic: Denies itchy eyes, Denies lip swelling, Denies throat swelling and Reports wheezing Pulmonology Exam Inpatient Vital signs and Labs for Last 24 Hours: Temp Pulse Resp BP Pulse Ox O2 Del Method O2 Flow Rate 97.5 F L 67 18 157/92 H 96 Nasal Cannula 3 07/20/24 04:00 07/20/24 06:23 07/20/24 04:00 07/20/24 04:00 07/20/24 06:23 07/20/24 07:00 07/20/24 07:00 Laboratory Results - last 24 hr 07/19/24 17:38: WBC 9.2, RBC 5.30, Hgb 15.8, Hct 50.5 H, MCV 95.3, MCH 29.8, MCHC 31.3 L, RDW 15.0, Plt Count 224 D, MPV 8.7, Neut % (Auto) 79.1, Lymph % (Auto) 15.9, [place] % (Auto) 3.9, Eos % (Auto) 0.0 L, Baso % (Auto) 0.1, Neut # (Auto) 7.3, Lymph # (Auto) 1.5, [place] # (Auto) 0.4, Eos # (Auto) 0.0, Baso # (Auto) 0.0, VBG pH 7.30 L, VBG pCO2 63.1 H, VBG pO2 42.7 H, VBG HCO3 30.1 H, VBG Total CO2 32.0 H, VBG O2 Saturation 76.5 H, VBG Base Excess 3.6 H, VBG Lactic Acid 1.7, Sodium 139, Potassium 4.6, Chloride 105, Carbon Dioxide 31 H, Anion Gap 7.6, BUN 26 H, Creatinine 0.80, Estimated Creat Clear 106, Estimated GFR 76, Est GFR ( Amer) 92, Glucose 110 H, Calcium 9.2, Magnesium 1.6, Total Bilirubin 0.6, AST 29, ALT 23, Alkaline Phosphatase 79, Troponin I 0.01, NT-Pro-B Natriuret Pep 341 H, Total Protein 7.7, Albumin 4.0, Globulin 3.7 H, Albumin/Globulin Ratio 1.1, Lipase 137 07/19/24 19:37: Chlamy pneumoniae PCR Not detected, Adenovirus (PCR) Not detected, B. pertussis DNA (PCR) Not detected, Coronavirus OC43 (PCR) Not detected, Coronavirus HKU1 (PCR) Not detected, Coronavirus 229E (PCR) Not detected, SARS-CoV-2 (PCR) Not detected 07/19/24 19:37: SARS-CoV-2 (PCR) Not detected, Coronavirus NL63 (PCR) Not detected, Human Metapneumovir PCR Not detected, Influenza A (H1) PCR Not detected, Influ A (H1N1/09) PCR Not detected, Influenza A (H3) PCR Not detected, Influenza Type A (PCR) Not detected, Influenza A Untype (PCR) Not detected, Influenza Type B (PCR) Not detected 07/19/24 19:37: Influenza Type B (PCR) Not detected, M. pneumoniae (PCR) Not detected, Parainfluenza 1 (PCR) Not detected, Parainfluenza 2 (PCR) Not detected, Parainfluenza 3 (PCR) Not detected, Parainfluenza 4 (PCR) Not detected, RSV (PCR) Not detected, Entero/Rhino (PCR) Not detected 07/19/24 20:03: Troponin I 0.01 07/19/24 22:57: Troponin I < 0.01 07/20/24 05:55: Sodium 142, Potassium 4.4, Chloride 107, Carbon Dioxide 33 H, Anion Gap 6.4, BUN 24 H, Creatinine 0.80, Estimated Creat Clear 106, Estimated GFR 76, Est GFR ( Amer) 92, Glucose 160 H D, Calcium 9.6, Total Bilirubin 0.2, AST 24, ALT 23, Alkaline Phosphatase 88, Total Protein 7.6, Albumin 3.9, Globulin 3.7 H, Albumin/Globulin Ratio 1.1 I & O for Labs for Last 24 Hours: Intake & Output 07/17/24 07/18/24 07/19/24 07/20/24 23:59 23:59 23:59 23:59 Intake Total 500 / 500 Balance 500 / 500 Weight 177 lb 3.2 oz 177 lb 3.2 oz Constitutional: Present moderate distress Head: Present normocephalic and atraumatic ENT: Present normal exam, normal oropharynx and mucous membranes moist Neck: Present normal inspection and full ROM Respiratory: Present able to speak in complete sentences; Absent respiratory distress, rhonchi or wheezes Cardiac: Present S1/S2, Tachycardia and radial pulses present GI: Present soft and distention; Absent tenderness or guarding Rectal (female): Present deferred (female): Present deferred Skin: Present intact; Absent cyanosis or jaundice Neuro: Present alert, awake and oriented x 3 Extremities: Present normal inspection; Absent clubbing or cyanosis Psychiatric: Present normal affect and cooperative Meds Home Medications and Allergies Home Medications ?Medication ?Instructions ?Recorded ?Confirmed ?Type aspirin 81 mg tablet,delayed 81 mg PO DAILY 03/09/17 07/20/24 History release (Adult Low Dose Aspirin) metformin 500 mg tablet 500 mg PO BID Diabetes #60 tabs 10/21/17 07/20/24 Rx lisinopril 40 mg tablet 40 mg PO DAILY High blood pressure 10/05/23 07/19/24 Rx #90 tabs atorvastatin 80 mg tablet 80 mg PO HS 01/26/24 07/20/24 History empagliflozin 10 mg tablet 10 mg PO DAILY #90 tabs 01/26/24 07/19/24 Rx (Jardiance) albuterol sulfate 90 mcg/actuation 4 inh inhalation Q4H PRN shortness 07/16/24 07/19/24 Rx aerosol inhaler of breath or wheezing #8.5 grams doxycycline hyclate 100 mg capsule 100 mg PO BID 10 days #20 caps 07/16/24 07/19/24 Rx prednisone 50 mg tablet 50 mg PO DAILY 5 days #5 tabs 07/16/24 07/19/24 Rx carvedilol 25 mg tablet 50 mg PO BID 07/20/24 07/20/24 History clopidogrel 75 mg tablet 75 mg PO DAILY 07/20/24 07/20/24 History isosorbide mononitrate 30 mg 30 mg PO DAILY 07/20/24 07/20/24 History tablet,extended release 24 hr New Prescriptions to Start Prescriptions: Allergies Allergy/AdvReac Type Severity Reaction Status Date / Time Penicillins (PENICILLINS) Allergy Mild Verified 07/19/24 15:43 Results Laboratory Findings 07/19/24 17:38 07/20/24 05:55 Abnormal lab findings: Abnormal Labs 07/19/24 07/20/24 17:38 05:55 Hct 50.5 H MCHC 31.3 L Eos % (Auto) 0.0 L VBG pH 7.30 L VBG pCO2 63.1 H VBG pO2 42.7 H VBG HCO3 30.1 H VBG Total CO2 32.0 H VBG O2 Saturation 76.5 H VBG Base Excess 3.6 H Carbon Dioxide 31 H 33 H BUN 26 H 24 H Glucose 110 H 160 H D NT-Pro-B Natriuret Pep 341 H Globulin 3.7 H 3.7 H Assessment and Plan *Assessment and plan (1) Acute exacerbation of chronic obstructive pulmonary disease: Status: Acute Category: Medical Code(s): J44.1 - Chronic obstructive pulmonary disease with (acute) exacerbation (2) Acute hypoxic respiratory failure: Status: Acute Category: Medical Code(s): J96.01 - Acute respiratory failure with hypoxia Plan Ms. Jones is a 53-year-old female current smoker greater than [id number] smoking history with reported history of COPD tobacco abuse hypertension dyslipidemia CAD presented today with worsening respite distress chest pain and pulmonary was called for further evaluation and management. Not using any long-acting inhaler therapy at baseline using albuterol on as-needed basis, DuoNebs twice daily scheduled. Recently presented to ER for presumed COPD exacerbation discharged home on antibiotics and steroids, continue to use nebulized therapies only twice a day upon discharge. Afebrile. Hemodynamically stable. No significant evidence of leukocytosis. Blood gas upon admission hypercarbic respiratory failure with a pH of 7.37PCO of 63.1. Comprehensive respiratory viral PCR panel negative. CTA PE protocol upon admission, no evidence of pulmonary embolism. Centrilobular emphysematous changes. No dense consolidative/airspace changes noted. No pleural effusions or evidence of volume overload noted. Currently on doxycycline IV nebulization therapies and steroids. On examination mild respiratory distress. No significant wheezing noted on auscultation. Denies any frequent exacerbations. Plan: Trelegy 100 inhaler along with DuoNebs 4 times daily as needed. Continue doxycycline for a total of 5 days Prednisone 40 mg daily to complete a total of 5-day course Continue oxygen supplementation to maintain O2 saturation goal of 90% and above. Currently on 2 L. Patient not using any oxygen supplementation during the daytime. She only uses oxygen supplementation at night. Does have history of sleep apnea refuse NIV therapy using oxygen supplementation at night. # Thank you for involving pulmonary in this patient care. Will follow the patient in pulmonary clinic 3 to 4 weeks postdischarge.
[2024-07-20] MEDS: DOXYCYCLINE HYCL 100 MG TABLET PO (09:57)
[2024-07-20] MEDS: EZETIMIBE 10MG TABLET 10 MG PO (09:58)
[2024-07-20] MEDS: EMPAGLIFLOZIN 10MG TABLET 10 MG PO (09:58)
[2024-07-20] MEDS: ISOSORBIDE MONO 30MG TAB.ER.24H 30 MG PO (09:59)
[2024-07-20] MEDS: LISINOPRIL 20MG TABLET 40 MG PO (09:59)
[2024-07-20] MEDS: CLOPIDOGREL 75MG TAB 75 MG PO (09:59)
[2024-07-20] MEDS: CARVEDILOL 25MG TABLET 50 MG PO (09:59)
[2024-07-20] MEDS: predniSONE 20MG TAB 40 MG PO (10:00)
[2024-07-20] MEDS: HEPARIN SODIUM 5,000 UNIT/ML VIAL 5000 UNIT SUBCUT (10:00)
--- NOTE | 2024-07-20 10:32 | HMH.PHAINT1 ---
Pharmacy Intervention Comments: HOME MEDICATION LIST VERIFIED USING LIST FROM OUTPATIENT PHARMACY AND PT INTERVIEW
[2024-07-20 11:49] LABS: POC Glucose,Bedside 131 (70-110)
--- NOTE | 2024-07-20 12:08 | PC.NURSE ---
Patient's oxygen saturation 86% on room air at rest
--- NOTE | 2024-07-20 12:24 | PC.NURSE ---
informed nurse of high BP
--- NOTE | 2024-07-20 12:58 | P.DS_ITS ---
General Admission date:: 07/19/24 Discharge date: 07/20/24 HPI HPI HPI: Patient is a 53-year-old female with past medical history of COPD, active tobacco use, hypertension hyperlipidemia CAD who presents to the hospital due to shortness of breath and chest pain. According to patient she has been having cough that is productive, shortness of breath especially with exertion, she is on oxygen at home at night and she has been requiring more oxygen than her baseline. According to patient her chest pain is associated with her cough. Denied chest pain associated with exertion. Denied fevers chills diarrhea c onstipation dysuria. Hospital Course Hospital Course Hospital Course: Patient is a 53-year-old female with past medical history of COPD, active tobacco use, hypertension hyperlipidemia CAD who presents to the hospital due to shortness of breath and chest pain. According to patient she has been having cough that is productive, shortness of breath especially with exertion, she is on oxygen at home at night and she has been requiring more oxygen than her baseline. According to patient her chest pain is associated with her cough. Denied chest pain associated with exertion. Denied fevers chills diarrhea constipation dysuria. Showed improvement with initiation of inhalers and antibiotics. Pulmonology evaluated in the morning. Patient overall doing better. Will discharge home with continued supplemental oxygen to complete antibiotic course and steroids as an outpatient. Problems addressed as follows: COPD exacerbation Acute hypoxic respiratory failure -Patient initiated on antibiotics and steroids with prednisone and doxycycline. CTA of chest reviewed that was negative for PE. Initially required supplemental oxygen, able to wean to 2 L by day of discharge. Patient was 86% on room air at rest on morning of discharge. Necessitating 2 L oxygen continuously via nasal cannula to maintain sats above 90%. Will complete 5 days of antibiotics total with doxycycline twice daily. Continue prednisone 40 mg daily for total of 5 days. Continue Trelegy 100 inhaler and DuoNebs as needed at home. Plan to follow-up with pulmonology in the next 3 to 4 weeks to monitor for improvement. Normally only uses oxygen at night at home. Patient does have a history of sleep apnea but refuses noninvasive ventilation using oxygen supplementation at night instead. Chronic medical conditions Tobacco use: Continue nicotine patch during admission. Encouraged smoking cessation. Patient precontemplative at this time. Hypertension Chronic systolic CHF Pulmonary hypertension Diabetes mellitus - Resume home medications including aspirin, Lipitor, Coreg, Imdur, lisinopril. Resume empagliflozin 10 mg daily for diabetes and CHF. Resume metformin 500 mg twice daily Total time spent on discharge 32 minutes in counseling, documentation, chart review, and direct care with patient. Exam Data for Last 24 hours Vital signs and Labs for Last 24 Hours: Temp Pulse Resp BP Pulse Ox O2 Del Method O2 Flow Rate 97.5 F L 62 18 128/83 93 L Nasal Cannula 1 07/20/24 12:00 07/20/24 12:00 07/20/24 12:00 07/20/24 12:00 07/20/24 12:00 07/20/24 12:00 07/20/24 12:00 FiO2 94 07/20/24 08:00 Laboratory Results - last 24 hr 07/19/24 17:38: WBC 9.2, RBC 5.30, Hgb 15.8, Hct 50.5 H, MCV 95.3, MCH 29.8, MCHC 31.3 L, RDW 15.0, Plt Count 224 D, MPV 8.7, Neut % (Auto) 79.1, Lymph % (Auto) 15.9, Toole % (Auto) 3.9, Eos % (Auto) 0.0 L, Baso % (Auto) 0.1, Neut # (Auto) 7.3, Lymph # (Auto) 1.5, Toole # (Auto) 0.4, Eos # (Auto) 0.0, Baso # (Auto) 0.0, VBG pH 7.30 L, VBG pCO2 63.1 H, VBG pO2 42.7 H, VBG HCO3 30.1 H, VBG Total CO2 32.0 H, VBG O2 Saturation 76.5 H, VBG Base Excess 3.6 H, VBG Lactic Acid 1.7, Sodium 139, Potassium 4.6, Chloride 105, Carbon Dioxide 31 H, Anion Gap 7.6, BUN 26 H, Creatinine 0.80, Estimated Creat Clear 106, Estimated GFR 76, Est GFR ( Amer) 92, Glucose 110 H, Calcium 9.2, Magnesium 1.6, Total Bilirubin 0.6, AST 29, ALT 23, Alkaline Phosphatase 79, Troponin I 0.01, NT-Pro-B Natriuret Pep 341 H, Total Protein 7.7, Albumin 4.0, Globulin 3.7 H, Albumin/Globulin Ratio 1.1, Lipase 137 07/19/24 19:37: Chlamy pneumoniae PCR Not detected, Adenovirus (PCR) Not detected, B. pertussis DNA (PCR) Not detected, Coronavirus OC43 (PCR) Not detected, Coronavirus HKU1 (PCR) Not detected, Coronavirus 229E (PCR) Not detected, SARS-CoV-2 (PCR) Not detected 07/19/24 19:37: SARS-CoV-2 (PCR) Not detected, Coronavirus NL63 (PCR) Not detected, Human Metapneumovir PCR Not detected, Influenza A (H1) PCR Not detected, Influ A (H1N1/09) PCR Not detected, Influenza A (H3) PCR Not detected, Influenza Type A (PCR) Not detected, Influenza A Untype (PCR) Not detected, I nfluenza Type B (PCR) Not detected 07/19/24 19:37: Influenza Type B (PCR) Not detected, M. pneumoniae (PCR) Not detected, Parainfluenza 1 (PCR) Not detected, Parainfluenza 2 (PCR) Not detected, Parainfluenza 3 (PCR) Not detected, Parainfluenza 4 (PCR) Not detected, RSV (PCR) Not detected, Entero/Rhino (PCR) Not detected 07/19/24 20:03: Troponin I 0.01 07/19/24 22:57: Troponin I < 0.01 07/20/24 05:55: Sodium 142, Potassium 4.4, Chloride 107, Carbon Dioxide 33 H, Anion Gap 6.4, BUN 24 H, Creatinine 0.80, Estimated Creat Clear 106, Estimated GFR 76, Est GFR ( Amer) 92, Glucose 160 H D, Calcium 9.6, Total Bilirubin 0.2, AST 24, ALT 23, Alkaline Phosphatase 88, Total Protein 7.6, Albumin 3.9, Globulin 3.7 H, Albumin/Globulin Ratio 1.1 07/20/24 11:41: POC Glucose 131 H I & O for Last 24 hours: Intake & Output 07/17/24 07/18/24 07/19/24 07/20/24 23:59 23:59 23:59 23:59 Intake Total 500 / 500 Balance 500 / 500 Weight 80.377 kg 80.377 kg Constitutional Constitutional: no acute distress, obese, chronically ill appearing and cooperative *Routine HEENT Exam Head: Present normocephalic Eye: Present EOMI and PERRL ENT: Present mucous membranes moist *Routine Neck Exam Neck: Present supple; Absent lymphadenopathy *Routine Respiratory Exam Respiratory: Present prolonged expiratory phase and wheezes (improved, minimal); Absent rhonchi or crackles *Routine Cardiovascular Exam Cardiovascular: Present RRR *Routine Abdominal Exam Abdominal: Present soft and normoactive bowel sounds; Absent tenderness *Routine Rectal Exam Patient deferred: visual exam *Routine Exam Patient deferred: external exam *Routine Extremities Exam Extremities: Absent cyanosis, clubbing or edema *Routine Skin Exam Skin: Present intact and warm; Absent rash *Routine Neurological Exam Neurological: Present alert, oriented X3 and moving all extremities; Absent altered mental status Results Data Completed and Pending Labs on day of discharge: Labs from last 24 hours 07/20/24 07/20/24 07/19/24 11:41 05:55 22:57 WBC RBC Hgb Hct MCV MCH MCHC RDW Plt Count MPV Neut % (Auto) Lymph % (Auto) Toole % (Auto) Eos % (Auto) Baso % (Auto) Neut # (Auto) Lymph # (Auto) Toole # (Auto) Eos # (Auto) Baso # (Auto) VBG pH VBG pCO2 VBG pO2 VBG HCO3 VBG Total CO2 VBG O2 Saturation VBG Base Excess VBG Lactic Acid Sodium 142 Potassium 4.4 Chloride 107 Carbon Dioxide 33 H Anion Gap 6.4 BUN 24 H Creatinine 0.80 Estimated Creat Clear 106 Estimated GFR 76 Est GFR ( Amer) 92 Glucose 160 H D POC Glucose 131 H Calcium 9.6 Magnesium Total Bilirubin 0.2 AST 24 ALT 23 Alkaline Phosphatase 88 Troponin I < 0.01 NT-Pro-B Natriuret Pep Total Protein 7.6 Albumin 3.9 Globulin 3.7 H Albumin/Globulin Ratio 1.1 Lipase Chlamy pneumoniae PCR Adenovirus (PCR) B. pertussis DNA (PCR) Coronavirus OC43 (PCR) Coronavirus HKU1 (PCR) Coronavirus 229E (PCR) SARS-CoV-2 (PCR) Coronavirus NL63 (PCR) Human Metapneumovir PCR Influenza A (H1) PCR Influ A (H1N1/09) PCR Influenza A (H3) PCR Influenza Type A (PCR) Influenza A Untype (PCR) Influenza Type B (PCR) M. pneumoniae (PCR) Parainfluenza 1 (PCR) Parainfluenza 2 (PCR) Parainfluenza 3 (PCR) Parainfluenza 4 (PCR) RSV (PCR) Entero/Rhino (PCR) 07/19/24 07/19/24 07/19/24 20:03 19:37 19:37 WBC RBC Hgb Hct MCV MCH MCHC RDW Plt Count MPV Neut % (Auto) Lymph % (Auto) Toole % (Auto) Eos % (Auto) Baso % (Auto) Neut # (Auto) Lymph # (Auto) Toole # (Auto) Eos # (Auto) Baso # (Auto) VBG pH VBG pCO2 VBG pO2 VBG HCO3 VBG Total CO2 VBG O2 Saturation VBG Base Excess VBG Lactic Acid Sodium Potassium Chloride Carbon Dioxide Anion Gap BUN Creatinine Estimated Creat Clear Estimated GFR Est GFR ( Amer) Glucose POC Glucose Calcium Magnesium Total Bilirubin AST ALT Alkaline Phosphatase Troponin I 0.01 NT-Pro-B Natriuret Pep Total Protein Albumin Globulin Albumin/Globulin Ratio Lipase Chlamy pneumoniae PCR Adenovirus (PCR) B. pertussis DNA (PCR) Coronavirus OC43 (PCR) Coronavirus HKU1 (PCR) Coronavirus 229E (PCR) SARS-CoV-2 (PCR) Not detected Coronavirus NL63 (PCR) Not detected Human Metapneumovir PCR Not detected Influenza A (H1) PCR Not detected Influ A (H1N1/09) PCR Not detected Influenza A (H3) PCR Not detected Influenza Type A (PCR) Not detected Influenza A Untype (PCR) Not detected Influenza Type B (PCR) Not detected Not detected M. pneumoniae (PCR) Not detected Parainfluenza 1 (PCR) Not detected Parainfluenza 2 (PCR) Not detected Parainfluenza 3 (PCR) Not detected Parainfluenza 4 (PCR) Not detected RSV (PCR) Not detected Entero/Rhino (PCR) Not detected 07/19/24 07/19/24 19:37 17:38 WBC 9.2 RBC 5.30 Hgb 15.8 Hct 50.5 H MCV 95.3 MCH 29.8 MCHC 31.3 L RDW 15.0 Plt Count 224 D MPV 8.7 Neut % (Auto) 79.1 Lymph % (Auto) 15.9 Toole % (Auto) 3.9 Eos % (Auto) 0.0 L Baso % (Auto) 0.1 Neut # (Auto) 7.3 Lymph # (Auto) 1.5 Toole # (Auto) 0.4 Eos # (Auto) 0.0 Baso # (Auto) 0.0 VBG pH 7.30 L VBG pCO2 63.1 H VBG pO2 42.7 H VBG HCO3 30.1 H VBG Total CO2 32.0 H VBG O2 Saturation 76.5 H VBG Base Excess 3.6 H VBG Lactic Acid 1.7 Sodium 139 Potassium 4.6 Chloride 105 Carbon Dioxide 31 H Anion Gap 7.6 BUN 26 H Creatinine 0.80 Estimated Creat Clear 106 Estimated GFR 76 Est GFR ( Amer) 92 Glucose 110 H POC Glucose Calcium 9.2 Magnesium 1.6 Total Bilirubin 0.6 AST 29 ALT 23 Alkaline Phosphatase 79 Troponin I 0.01 NT-Pro-B Natriuret Pep 341 H Total Protein 7.7 Albumin 4.0 Globulin 3.7 H Albumin/Globulin Ratio 1.1 Lipase 137 Chlamy pneumoniae PCR Not detected Adenovirus (PCR) Not detected B. pertussis DNA (PCR) Not detected Coronavirus OC43 (PCR) Not detected Coronavirus HKU1 (PCR) Not detected Coronavirus 229E (PCR) Not detected SARS-CoV-2 (PCR) Not detected Coronavirus NL63 (PCR) Human Metapneumovir PCR Influenza A (H1) PCR Influ A (H1N1/09) PCR Influenza A (H3) PCR Influenza Type A (PCR) Influenza A Untype (PCR) Influenza Type B (PCR) M. pneumoniae (PCR) Parainfluenza 1 (PCR) Parainfluenza 2 (PCR) Parainfluenza 3 (PCR) Parainfluenza 4 (PCR) RSV (PCR) Entero/Rhino (PCR) DS: Diagnosis Discharge Diagnosis (1) Acute exacerbation of chronic obstructive pulmonary disease: Status: Acute Code(s): J44.1 - Chronic obstructive pulmonary disease with (acute) exacerbation (2) Acute hypoxic respiratory failure: Status: Acute Code(s): J96.01 - Acute respiratory failure with hypoxia (3) NYHA class 3 heart failure with reduced ejection fraction: Status: Chronic Code(s): I50.20 - Unspecified systolic (congestive) heart failure (4) Diabetes mellitus: Status: Chronic Code(s): E11.9 - Type 2 diabetes mellitus without complications Qualifiers: Diabetes mellitus complication status: without complication Diabetes mellitus custodial insulin use: without intermodal owner operator truck driver use Diabetes mellitus type: type 2 Qualified Code(s): E11.9 - Type 2 diabetes mellitus without complications (5) Tobacco dependence syndrome: Status: Chronic Code(s): F17.200 - Nicotine dependence, unspecified, uncomplicated (6) Hyperlipidemia: Status: Chronic Code(s): E78.5 - Hyperlipidemia, unspecified Qualifiers: Hyperlipidemia type: mixed hyperlipidemia Qualified Code(s): E78.2 - Mixed hyperlipidemia Meds Home Medications and Allergies Home Medications ?Medication ?Instructions ?Recorded ?Confirmed ?Type aspirin 81 mg tablet,delayed 81 mg PO DAILY 03/09/17 0 07/20/24 History release (Adult Low Dose Aspirin) metformin 500 mg tablet 500 mg PO BID Diabetes #60 t abs 10/21/17 07/20/24 Rx lisinopril 40 mg tablet 40 mg PO DAILY High blood pr essure 10/05/23 07/19/24 Rx #90 tabs atorvastatin 80 mg tablet 80 mg PO HS 01/26/24 5 History empagliflozin 10 mg tablet 10 mg PO DAILY #90 tabs 07/19/24 Rx (Jardiance) albuterol sulfate 90 mcg/actuation 4 inh inhalation Q4 H PRN shortness 07/16/24 07/19/24 Rx aerosol inhaler of breath or wheezing #8.5 g yaquelin carvedilol 25 mg tablet 50 mg PO BID 07/20/24 History clopidogrel 75 mg tablet 75 mg PO DAILY 07/20/2407/10 History doxycycline hyclate 100 mg tablet 100 mg PO BID 5 days #10 tabs 07/20/24 Rx fluticasone fur. 100 mcg-umeclid 1 inh inhalation HILLARY Y #60 ea 07/20/24 Rx 62.5 mcg-vilant 25 mcg inhalat.powder (Trelegy Ellipta) ipratropium 0.5 mg-albuterol 3 mg 3 ml inhalation Q6HP PRN Shortness 07/20/24 Rx (2.5 mg base)/3 mL nebulization Of Breath 30 days #180 mL soln isosorbide mononitrate 30 mg 30 mg PO DAILY 07/20/24 0 07/20/24 History tablet,extended release 24 hr prednisone 20 mg tablet 40 mg (2 x 20 mg) PO DAILY 4 days 07/20/24 Rx #8 tabs New Prescriptions to Start Prescriptions: doxycycline hyclate Umair Richards [id number] [Trelegy Ellipta] Umair Richards ipratropium-albuterol Maurice,Umair prednisone Maurice,Umair Allergies Allergy/AdvReac Type Severity Reaction Status Date / Time Penicillins (PENICILLINS) Allergy Mild Verified 07/19/24 15:43 Discharge Plan Disposition Patient Disposition: Home, Self-Care Condition: Fair Follow up Plan Follow up with: Elder Ballard MD [Primary Care Provider, Internal Medicine] - 07/27/24 2:30 pm Rin Prieto MD [Physician, Pulmonology] - 08/17/24 1:00 pm Prescriptions/Medication Reconciliation: New Trelegy Ellipta 100-62.5-25 mcg Blister With Device 1 inh inhalation DAILY Qty: 60 0RF prednisone 20 mg Tablet 40 mg PO DAILY 4 Days Qty: 8 0RF ipratropium-albuterol 0.5 mg-3 mg(2.5 mg base)/3 mL Solution For Nebulization 3 ml inhalation Q6HP PRN (Reason: Shortness Of Breath) 30 Days Qty: 180 0RF doxycycline hyclate 100 mg Tablet 100 mg PO BID 5 Days Qty: 10 0RF Continued atorvastatin 80 mg tablet 80 mg PO HS Jardiance 10 mg tablet 10 mg PO DAILY Qty: 90 3RF aspirin [Adult Low Dose Aspirin] 81 mg tablet,delayed release (DR/EC) 81 mg PO DAILY metformin 500 mg tablet 500 mg PO BID Qty: 60 0RF Rx Instructions: Pt. needs to follow up with primary care for future refills, as this is a diabetes medication lisinopril 40 mg tablet 40 mg PO DAILY Qty: 90 3RF albuterol sulfate 90 mcg/actuation HFA aerosol inhaler 4 inh inhalation Q4H PRN (Reason: shortness of breath or wheezing) Qty: 8.5 0RF Rx Instructions: 4 puffs every 4 hours for 48 hours then as needed for shortness of breath or wheezing following carvedilol 25 mg tablet 50 mg PO BID isosorbide mononitrate 30 mg tablet extended release 24 hr 30 mg PO DAILY clopidogrel 75 mg tablet 75 mg PO DAILY Discontinued doxycycline hyclate 100 mg capsule 100 mg PO BID 10 Days Qty: 20 0RF Rx Instructions: LAST DOSE 07/26 prednisone 50 mg tablet 50 mg PO DAILY 5 Days Qty: 5 0RF Rx Instructions: Please begin 1 day after ED visit LAST DOSE 07/26/24 Problem Reconciliation Problems Reviewed?: Yes Patient Discharge Instructions ACTIVITY: Continue current activity DIET: continue same diet Patient Instructions: DI for Chronic Obstructive Pulmonary Disease, DI for Shortness of Breath Print Language: Martiniquais Providers Primary Care Provider: Elder Ballard Admit Provider: Umair Richards Attending Provider: Umair Richards
--- NOTE | 2024-07-21 11:20 | SW/DCPLANNER ---
Spoke with patient on the phone. Patient stated that she is feeling well. Patient stated that she is aware of her upcoming appointments. Patient stated that she was able to get her medicine from [facility] pharmacy. Patient stated that she has no concerns or questions at this time. Jessie Donato
== END 2024-07-20 14:09 | disposition home or self-care (01) ==
LOC: ER 16:37 → 2ND 21:36
PROVIDERS: Internal Medicine; Admitting Provider Internal Medicine Adolescent Medicine; Emergency Provider Emergency Medicine; PCP Family Medicine; Visit Provider Internal Medicine Adolescent Medicine
DX: J44.1 Chronic obstructive pulmonary disease with (acute) exacerbation (principal); J96.01 Acute respiratory failure with hypoxia; M54.50 Low back pain, unspecified; I11.0 Hypertensive heart disease with heart failure; I50.22 Chronic systolic (congestive) heart failure; E11.9 Type 2 diabetes mellitus without complications; E78.2 Mixed hyperlipidemia; I25.10 Atherosclerotic heart disease of native coronary artery without angina pectoris; I70.1 Atherosclerosis of renal artery; E66.9 Obesity, unspecified; Z68.35 Body mass index [BMI] 35.0-35.9, adult; F17.210 Nicotine dependence, cigarettes, uncomplicated; Z79.82 Long term (current) use of aspirin; Z79.84 Long term (current) use of oral hypoglycemic drugs; Z79.02 Long term (current) use of antithrombotics/antiplatelets; Z79.899 Other long term (current) drug therapy; Z79.51 Long term (current) use of inhaled steroids; Z95.810 Presence of automatic (implantable) cardiac defibrillator; Z95.5 Presence of coronary angioplasty implant and graft; Z79.2 Long term (current) use of antibiotics; Z79.52 Long term (current) use of systemic steroids; Z88.0 Allergy status to penicillin; W19.XXXA Unspecified fall, initial encounter
CPT/HCPCS: 96365; 96375; 0223U; 36415; 71275; 80053; 82803; 82962; 83690; 83735; 83880; 84484; 85025; 87633; 87636; 93005; 94640; G0378; J1644; J2919; J3475; Q9967

== ENCOUNTER 2024-07-27 15:21 | Outpatient (CLI) | payer MEDICARE, SELFPAY ==
[2024-07-27 17:29] LABS: Creatinine,Urine Random 148 mg/dL (Not Estab.)
[2024-07-27 17:33] LABS: Microalbumin/Creatinine Ratio 10.8
--- OUTSIDE RECORDS SUMMARY | 2024-07-28 09:57 | XMS_ITS | Referral Summary ---
Author Organization [employer] Address [address] [place] [address] Care Team Providers Care Farm Field Manager Name Role Phone Unavailable Primary Care Provider [...] any time in the past 12 m [facility], were you homeless or living in a usp (including now)? No 03/24/2024 Comments Unknown Sex and Gender Information Value Date Recorded Sex Assigned at Not on file Legal Sex Female 4:44 PM CDT Gender Identity Not on file Sexual Orientation Not on file Plan of Treatment Not on file
--- OUTSIDE RECORDS SUMMARY | 2024-07-28 09:57 | XMS_ITS | Clinical Summary ---
Author Organization [employer] Address [address] [place] [address] Care Team Providers Care Printed Circuit Board Panels Developer Name Role Phone Unavailable Primary Care Provider [...] any time in the past 12 m [facility], were you homeless or living in a custodial (including now)? No 03/24/2024 Comments Unknown Sex and Gender Information Value Date Recorded Sex Assigned at Not on file Legal Sex Female 4:44 PM CDT Gender Identity Not on file Sexual Orientation Not on file Plan of Treatment Not on file
== END 2024-07-27 23:59 | disposition home or self-care (01) ==
LOC: LAB.DROPOF 07-28 09:55
PROVIDERS: PCP Family Medicine; Visit Provider Family Medicine
DX: E11.9 Type 2 diabetes mellitus without complications (principal)
CPT/HCPCS: 82043; 82570